=== PATIENT | female | born 1960 | race Caucasian/White ===

== ENCOUNTER 2024-05-13 11:04 | Outpatient (CLI) | payer MEDICARE, SELFPAY ==
--- OUTSIDE RECORDS SUMMARY | 2024-05-13 10:09 | XMS_ITS | Clinical Summary ---
Author Organization [facility] Address [address] [place] [address] Phone Care Team Providers Care V Belt Finisher Name Role Phone Moreno Jimenez MD Primary Care Provider [phone] Mu Barrera DO Unavailable [phone] Allergies No known active allergies Medications Nutritional Supplements (JUICE PLUS FIBRE PO) Take by mouth daily. 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 Active lisinopril (PRINIVIL, ZESTRIL) 10 MG Tablet Take 10 mg by mouth daily. 06/06/19 23 Active albuterol 108 (90 Base) MCG/ACT Aerosol Solution INHALE 2 PUFFS INTO THE LUNGS EVERY 6 HOURS NEEDED FOR WHEEZING 12/29/19 23 Active guaiFENesin-cod eine (TUSSI-ORGANIDI N NR) 100-10 MG/5ML Syrup Take 10 mL by mouth nightly as needed. 02/03/20 23 Active Pseudoephedrine -guaiFENesin (MUCINEX D PO) Take by mouth as needed. Active other Immunoglobulin Infusion - x1 monthly Active fluorometholone (FML) 0.1 % Suspension if needed. 05/15/19 24 Active cetirizine (ZyrTEC) 10 MG Tablet Take 10 mg by mouth. Active azelastine (ASTELIN) 0.1 % Solution 1 [place] by Nasal route as needed for Rhinitis. 25 mL 11/23/19 24 Active Additional Information Patient not taking.Reported on 05/05/2024 [place] Natural Products (IMMUNE BOOST PO) Take by mouth. Activ e tamoxifen citrate 20 MG Tablet Take 1 Tablet by mouth daily 30 Tablet 3 03/03/20 24 Active Probiotic Product ([place] Intestinal Daxa Regulat) Capsule Take 1 Capsule by mouth daily (with breakfast). 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 06/07/2015 Encounters Date Type Department Care Team Description 05/06/2024 8:30 AM FREELANCE GRAPHIC DESIGNER Clinical Support [facility] [address] [address] Nurse, Dali Naranjo History of non-Hodgkin's lymphoma (Primary Dx); Hypogammaglobulinemia (HCC) 05/06/2024 Telephone [facility] [address] [address] Mu Barrera, 05/05/2024 9:45 AM FREELANCE GRAPHIC DESIGNER Office Visit [facility] [address] [address] Mu Barrera, History of non-Hodgkin's lymphoma (Primary Dx); Hypogammaglobulinemia (HCC) 05/05/2024 9:30 AM FREELANCE GRAPHIC DESIGNER Lab [facility] [address] [address] [facility] Hypogammaglobulinemia (HCC); Ductal carcinoma in situ (DCIS) of right breast; Vitamin D deficiency 05/05/2024 Travel 04/30/2024 Telephone [facility] [address] [address] Mu Barrera, 04/04/2024 8:15 AM FREELANCE GRAPHIC DESIGNER Clinical Support [facility] [address] [address] Nurse, Cc Ofriaz History of non-Hodgkin's lymphoma (Primary Dx); Hypogammaglobulinemia (HCC) 04/04/2024 Travel 04/02/2024 Telephone [facility] [address] [address] Mu Barrera, 04/01/2024 Results Follow-Up [facility] [address] [address] Atiya Mejia, CITY ROUTE DRIVER, PRINT SUPPORT SPECIALIST 03/31/2024 9:00 AM FREELANCE GRAPHIC DESIGNER Lab [facility] [address] [address] Lab, Cc Ofallon Hypogammaglobulinemia (HCC) 03/31/2024 Travel 03/04/2024 Telephone [facility] [address] [address] Atiya Mejia, CITY ROUTE DRIVER, PRINT SUPPORT SPECIALIST 03/03/2024 9:45 AM FREELANCE GRAPHIC DESIGNER Office Visit [facility] [address] [phone] Atiya Mejia, CITY ROUTE DRIVER, PRINT SUPPORT SPECIALIST Hypogammaglobulinemia (HCC) (Primary Dx); Ductal carcinoma in situ (DCIS) of right breast; Vitamin D deficiency; Diarrhea, unspecified type 03/03/2024 9:30 AM FREELANCE GRAPHIC DESIGNER Lab [facility] [address] [address] Lab, C[facility] Hypogammaglobulinemia (HCC); Ductal carcinoma in situ (DCIS) of right breast 03/03/2024 Travel from Last 3 Months Immunizations Immunization Administration Dates Next Due DT Vaccine 11/07/2004 Hepatitis A And Hepatitis B Vaccine 07/03/2006,1 ,01/02/2006 Hepatitis A Vaccine,unspecif ied Formulation 07/03/2006,02/06/2006 IMM GLOB HUMAN IV 05/06/2024,,02/04/2024,01/06,11/30/2023,09/24/2023,08/21/2023 ,05/24/2023,04/26/2023,03/22/2023,11/0 12/2022 Influenza Vaccine 01/11/2019,01/12/2017,02/13/20 15 Influenza Vaccine, MDCK,quad rivalent, pres free 01/18/2022,01/12/2017 Influenza Vaccine, Quadrivalent, PF 01/16/2020,1 ,12/31/2015 Influenza Vaccine,unspecifie d Formulation 01/18/2022,01/11/2019,01/12/2017,02/12 Influenza, Injectable, Quadrivalent 01/11/2019 Influenza, Seasonal, Injecta ble, Undefined 01/13/2021,02/07/2014 Influenza, high-dose, trivalent, PF 01/23/2024 MMR Vaccine 12/09/2004,11/07/2004 Pneumococcal Vaccine Adult - 23 Valent 4 Pneumococcal conjugate PCV20 , polysaccharide [id number] conjugate, adjuvant, PF 12/11/2022 RSV, Recombinant, Protein Alaniz bunit Rsvpref, Adjuvant Recon (Arexvy) 01/09/2024 TD VACCINE 11/07/2004 TDAP Vaccine 11/11/2009 Typhoid, Parenteral, AKD ([place] ) 11/11/2009,01/02/2006 Yellow Fever Vaccine 11/11/2009 Zoster Vaccine Recombinant 03/19/2021,01/13/2021 Social History Tobacco Use Types Packs/Day Years Used Date Smoking Tobacco: Never Passive Smoke Exposure: Never Smokeless Tobacco: Never Tobacco Cessation:Counseling Given: No Alcohol Use Standard Drinks/Week Comments Yes 0 (1 standard drink = 0.6 oz pur e alcohol) socially PHQ-2 Answer Date Recorded Total Score - Questions 1-9 0 09/15 Comments No Sex and Gender Information Value Date Recorded Sex Assigned at Not on file Legal Sex Female 2:40 AM CDT Gender Identity Not on file Sexual Orientation Not on file Last Filed Vital Signs Vital Sign Reading Time Taken Comments Blood Pressure 102/62 05/05/2024 9:44 AM FREELANCE GRAPHIC DESIGNER Pulse 62 05/05/2024 9:44 AM FREELANCE GRAPHIC DESIGNER Temperature 36.6 ??C (97.9 ??F) 05/05/2024 9:44 AM CS T Respiratory Rate 16 05/05/2024 9:44 AM FREELANCE GRAPHIC DESIGNER Oxygen Saturation 97% 05/05/2024 9:44 AM FREELANCE GRAPHIC DESIGNER Inhaled Oxygen Concentration - - Weight 86.6 kg (190 lb 14.4 oz) 05/05/2024 9:44 AM FREELANCE GRAPHIC DESIGNER Height 162.6 cm (5' 4 ) 05/05/2024 9:44 AM FREELANCE GRAPHIC DESIGNER Body Mass Index 32.77 05/05/2024 9:44 AM FREELANCE GRAPHIC DESIGNER Plan of Treatment Upcoming Encounters Date Type Department Care Team (Late st Contact Info) Description 06/16/2024 9:00 AM FREELANCE GRAPHIC DESIGNER Lab [facility] [address] [address] Lab, [facility] 06/23/2024 8:30 AM CDT Clinical Support [facility] [address] [address] 07/21/2024 8:30 AM CDT Clinical Support [facility] [address] [address] 08/04/2024 8:30 AM CDT Lab [facility] [address] [address] Lab, [facility] 08/04/2024 8:45 AM CDT Office Visit [facility] [address] [address] Mu Barrera, DO [address] [place] [phone] Health Maintenance Due Date Last Done Comments Hepatitis C Virus (HCV) Screening 1960 Immunochemical Fecal Occult Blood 02/27/2008 Cologuard 08/24/2023 08/23/2020 SARS-COV-2 Immunization (7 - Moderna risk season) 2024 12/19/2023, 02/03/2022, 08/30/2021, Additional history exists Mammogram Unilateral 09/18/2024 09/19/2023, 09/19/2023, 08/27/2023, Additional history exists DEXA Bone Density 10/31/2024 10/31/2022 Colonoscopy 09/20/2030 09/20/2020 Colorectal Cancer Screening 09/20/2030 09/20/2020 Hepatitis B Immunization Completed 007, 02/06/2006, 01/02/2006 DTaP/Tdap/Td Immunization Discontinued 2009, 11/07/2004, 11/07/2004 Cervical Cancer Screening (CCS) Discontinued Pap Smear Discontinued 08/14/2018 Zoster Immunization Completed 03/19/2021, Pneumococcal Immunization (50+ years) Completed 12/11/2022, 02/23/2014 Pneumococcal Immunization Combined Discontinued 12/11/2022, 02/23/2014 Mammogram Discontinued 09/19/2023, 08/14, 08/16/2023, Additional history exists Respiratory Syncytial Virus (RSV) Immunization (Adult) Completed 01/09/2024 Influenza Immunization Completed , 01/18/2022, 01/18/2022, Additional history exists HPV/Cotest Discontinued Meningococcal Immunization (ACWY) Aged Out No longer eligible based on patient's age to complete this topic Rotavirus Immunization Aged Out No lo nger eligible based on patient's age to complete this topic Procedures Procedure Name Priority Date/Time Associated Diagnosis Comments CBC WITH AUTO DIFF OH Routine 05/05/2024 9:33 AM FREELANCE GRAPHIC DESIGNER CMP (COMPREHENSIVE METABOLIC PANEL) Routine 05/05/2024 9:33 AM FREELANCE GRAPHIC DESIGNER Hypogammaglobuline julius (HCC) Ductal carcinoma in situ (DCIS) of right breast Vitamin D deficiency IMMUNOGLOBULIN IGA, IGG & IGM QUANT Routine 05/05/2024 9:33 AM FREELANCE GRAPHIC DESIGNER Hypogammaglobuline julius (HCC) Ductal carcinoma in situ (DCIS) of right breast Vitamin D deficiency VITAMIN D, 25 HYDROXY TOTAL Routine 05/05/2024 9:33 AM FREELANCE GRAPHIC DESIGNER Hypogammaglobuline julius (HCC) Ductal carcinoma in situ (DCIS) of right breast Vitamin D deficiency IMMUNOGLOBULIN IGA, IGG & IGM QUANT Routine 03/31/2024 8:52 AM FREELANCE GRAPHIC DESIGNER Hypogammaglobuline julius (HCC) CBC WITH AUTO DIFF OH Routine 03/03/2024 9:33 AM FREELANCE GRAPHIC DESIGNER CMP (COMPREHENSIVE METABOLIC PANEL) Routine 03/03/2024 9:33 AM FREELANCE GRAPHIC DESIGNER Hypogammaglobuline julius (HCC) Ductal carcinoma in situ (DCIS) of right breast IMMUNOGLOBULIN IGA, IGG & IGM QUANT Routine 03/03/2024 9:33 AM FREELANCE GRAPHIC DESIGNER Hypogammaglobuline julius (HCC) Ductal carcinoma in situ (DCIS) of right breast COLOGUARD Routine 08/23/2020 STEPHEN SCREENING CHAR W IMPL DIGITAL W CAD Routine 06/04/2020 from Last 3 Months or Most Recently Relevant to Health Maintenance Results * VITAMIN D, 25 HYDROXY TOTAL (05/05/2024 9:33 AM FREELANCE GRAPHIC DESIGNER) 25() Vitamin D, Total 32.7 30.0 - 100.0 ng/mL [facility] Comment: The Clinical Guidelines Subcommittee of the Endocrine Society Task Force established the guidelines below for recommended serum 25(OH) vitamin D levels. ??Other clinical reference citations may show different values. Deficient ? <20 ? Insufficient ? 20 to <30 ? Sufficient ? 30 to 100 ? Upper Safety Limit ?>100 Blood 05/05/2024 9:33 AM FREELANCE GRAPHIC DESIGNER Narrative [facility] - 05/06/2024 10:52 AM FREELANCE GRAPHIC DESIGNER Release to patient->Immediate us Atiya Mejia CITY ROUTE DRIVER, PRINT SUPPORT SPECIALIST CHEMISTRY ORDERABLES Final Result [facility] [place] [address], [place] [phone] * (ABNORMAL) CBC WITH AUTO DIFF OH (05/05/2024 9:33 AM FREELANCE GRAPHIC DESIGNER) Only the most recent of2 resultswithin the time period is included. WBC 4.8 4.0 - 10.0 10*3/uL [facility] HGB 12.8 11.2 - 15.7 g/dL [facility] HCT 40.0 34.1 - 44.9 % [facility] PLT 192 163 - 369 10*3/uL [facility] MPV 11.8 9.4 - 12.4 fL [facility] RBC 4.69 3.93 - 5.22 10*6/uL [facility] MCV 85 79 - 95 fL [facility] MCH 27.3 25.6 - 32.2 pg [facility] MCHC 32.0(L) 32.2 - 36.5 g/dL [facility] RDW 13.3 11.6 - 14.4 % [facility] Neutrophils % 65.7 36.0 - 66.0 % [facility] Lymphocytes % 21.1 19.0 - 40.0 % [facility] Monocytes % 6.5 4.1 - 12.1 % [facility] Eosinophils % 6.1(H) 0.0 - 3.5 % [facility] Basophils % 0.4 0.0 - 1.0 % [facility] Absolute Neutrophils 3.1 1.4 - 6.6 10*3/uL [facility] Absolute Lymphocytes 1.0 0.8 - 4.0 10*3/uL [facility] Absolute Monocytes 0.3 0.2 - 1.2 10*3/uL [facility] Absolute Eosinophils 0.3 0.0 - 0.4 10*3/uL [facility] Absolute Basophils 0.0 0.0 - 0.1 10*3/uL [facility] 05/05/2024 9:33 AM FREELANCE GRAPHIC DESIGNER Atiya Mejia APRN, DOTTIE LAB SEND OUTS Final Result [facility] [address] [place] [address], [place] [phone] * (ABNORMAL) IMMUNOGLOBULIN IGA, IGG & IGM QUANT (05/05/2024 9:33 AM FREELANCE GRAPHIC DESIGNER) Only the most recent of3 resultswithin the time period is included. IGG 654 635 - 1,741 mg/dL [facility] IGA <10(L) 66 - 433 mg/dL [facility] IGM <20(L) 45 - 281 mg/dL [facility] Blood 05/05/2024 9:33 AM FREELANCE GRAPHIC DESIGNER Narrative [facility] - 05/05/2024 3:41 PM FREELANCE GRAPHIC DESIGNER Release to patient->Immediate Atiya Mejia APRN, PRINT SUPPORT SPECIALIST CHEMISTRY ORDERABLES Final Result Performing Organization Address [facility] Co de Phone Number [facility] [address] [address], [place] [phone] * (ABNORMAL) CMP (COMPREHENSIVE METABOLIC PANEL) (05/05/2024 9:33 AM FREELANCE GRAPHIC DESIGNER) Only the most recent of2 resultswithin the time period is included. Glucose 117(H) 70 - 105 mg/dL [facility] Blood Urea Nitrogen 15 7 - 25 mg/dL [facility] Creatinine 0.8 0.6 - 1.2 mg/dL [facility] Sodium 142 136 - 145 mEq/L [facility] Potassium 4.5 3.5 - 5.1 mEq/L [facility] Chloride 108(H) 98 - 107 mEq/L [facility] Bicarbonate 29 21 - 31 mEq/L [facility] Total Bilirubin 0.3 0.3 - 1.0 mg/dL [facility] Alk. Phosphatase 40 34 - 104 U/L [facility] Aspartate Aminotransferase 17 13 - 39 U/L [facility] Alanine Aminotransferase 17 7 - 52 U/L [facility] Total Protein 6.2(L) 6.4 - 8.9 g/dL [facility] Albumin 4.3 3.5 - 5.7 g/dL [facility] Calcium 9.6 8.6 - 10.3 mg/dL [facility] Anion Gap 9.5 7.0 - 15.0 mEq/L [facility] Globulin 1.9(L) 2.0 - 3.5 g/dL [facility] EGFR 81 >60 ml/min/1. 73m2 [facility] Comment: This eGFR is calculated using 2020 CKD-EPI Creatinine equation without race modifier based on the NKF-ASN task force recommendations Blood 05/05/2024 9:33 AM FREELANCE GRAPHIC DESIGNER Narrative [facility] - 05/05/2024 10:57 AM FREELANCE GRAPHIC DESIGNER Release to patient->Immediate IS THE PATIENT REQUIRED TO BE FASTING FOR 8 HOURS?->No us Atiya Mejia APRN, CNP CHEMISTRY ORDERABLES Final Result [facility] [address] [place] [address], * COLOGUARD (08/23/2020) us Michoacano Aponte III, MD BODY FLUIDS & STOOLS ORDERA BLES Final Result * STEPHEN SCREENING CHAR W IMPL DIGITAL W CAD (06/04/2020) Anatomical Region Laterality Modality breast Bilateral Mammography us Not On File Provider IMG MAMMO ORDERABLES Final Result from Last 3 Months or Most Recently Relevant to Health Maintenance Insurance MEDICARE [facility] Care Teams V Belt Finisher Relationship Specialty Start Date End Date Moreno Jimenez MD [address] [place] [address] PCP - General Family Medicine 12/13/18 Mu Barrera, [address] [place] [phone] Consulting Physician Oncology 12/05/23
--- OUTSIDE RECORDS SUMMARY | 2024-05-13 10:09 | XMS_ITS | Encounter Summary ---
Author Organization [facility] Address [address] [place] [address]. [place], [place] [phone] [place] [address] Care Team Providers Care Machine Learning Intern Name Role Phone Moreno Jimenez MD Primary Care Provider [phone] Brad Brand MD Unavailable [phone] Jc Browne MD Unavailable Encounter Details Date Type Department Care Team (Late st Contact Info) Description 03/09/[address] [facility] Conversion [address] [place], [place] [id number] , Generic Conversion, Social History Tobacco Use Types Packs/Day Years Used Date Smoking Tobacco: Never Assessed Comments Unknown Sex and Gender Information Value Date Recorded Sex Assigned at Female 03/29/2021 4:02 PM INSTALLER MOLDING AND TRIM Legal Sex Female 5:01 PM CDT Gender Identity Female 03/29/2021 4:02 PM INSTALLER MOLDING AND TRIM Sexual Orientation Straight 03/29/2021 4: 02 PM INSTALLER MOLDING AND TRIM documented as of this encounter Plan of Treatment Upcoming Encounters Date Type Department Care Team (Late st Contact Info) Description 08/19/2024 10:00 AM CDT Appointment [facility] [place] [address] Raudel Bacon MD [address] [address] documented as of this encounter Visit Diagnoses Not on filedocumented in this encounter Care Teams Machine Learning Intern Relationship Specialty Start Date End Date Moreno Jimenez MD [address] [place] [address] PCP - General FAMILY PRACTICE 10/23/18 Brad Brand MD [address] [facility] [address] [place] [phone] Consulting Physician INTERVENTIONAL CARDIOLOGY 10/28/18 Jc Browne MD [address] [place], [place] [address] Consulting Physician RADIATION ONCOLOGY 10/08/23 documented as of this encounter
--- OUTSIDE RECORDS SUMMARY | 2024-05-13 10:09 | XMS_ITS | Encounter Summary ---
Author Organization [facility] Address [address] [place] [address]. [place] [address] [place] [address] Care Team Providers Care Assistant Winemaker Name Role Phone Moreno Jimenez MD Primary Care Provider [phone] Brad Brand MD Unavailable [phone] Jc Browne MD Unavailable Encounter Details Date Type Department Care Team (Late st Contact Info) Description 02/23/2023 MyChart Message Enc [facility] [address] [place], [place] [id number] Moreno Jimenez MD [address] [place], [place] [address] Lab and CT Scan Results from [facility] Social History Tobacco Use Types Packs/Day Years Used Date Smoking Tobacco: Never Smokeless Tobacco: Never Comments:She does not plan t o start. Alcohol Use Standard Drinks/Week Comments Yes 0 (1 standard drink = 0.6 oz pur e alcohol) social PHQ-2 Answer Date Recorded Patient Health Questionnaire-2 Score 0 05/22/2022 Comments No Sex and Gender Information Value Date Recorded Sex Assigned at Female 03/29/2021 4:02 PM BASE CLOTH INSPECTOR Legal Sex Female 5:01 PM CDT Gender Identity Female 03/29/2021 4:02 PM BASE CLOTH INSPECTOR Sexual Orientation Straight 03/29/2021 4: 02 PM BASE CLOTH INSPECTOR documented as of this encounter Plan of Treatment Upcoming Encounters Date Type Department Care Team (Late st Contact Info) Description 08/19/2024 10:00 AM CDT Appointment [facility] [place] [address] Raudel Bacon MD [address] [address] documented as of this encounter Visit Diagnoses Not on filedocumented in this encounter Care Teams Assistant Winemaker Relationship Specialty Start Date End Date Moreno Jimenez MD [address] [place] [address] PCP - General FAMILY PRACTICE 10/23/18 Brad Brand MD [address] [facility] [address] [place] [address] Consulting Physician INTERVENTIONAL CARDIOLOGY 10/28/18 cJ Browne MD [address] [place] [address] Consulting Physician RADIATION ONCOLOGY 10/08/23 documented as of this encounter
--- OUTSIDE RECORDS SUMMARY | 2024-05-13 10:09 | XMS_ITS | Encounter Summary ---
Author Organization [facility] Address [address] [place] [address]. [place], [place] [phone] [place] [address] Care Team Providers Care Rn Medicare Name Role Phone Moreno Jimenez MD Primary Care Provider [phone] Brad Brand MD Unavailable [phone] Jc Browne MD Unavailable Encounter Details Date Type Department Care Team (Late st Contact Info) Description 06/03/[address] [facility] Conversion [address] [place], [place] [address] , Generic Conversion, Social History Tobacco Use Types Packs/Day Years Used Date Smoking Tobacco: Never Assessed Comments Unknown Sex and Gender Information Value Date Recorded Sex Assigned at Female 03/29/2021 4:02 PM RN UTILIZATION MANAGEMENT UM Legal Sex Female 5:01 PM CDT Gender Identity Female 03/29/2021 4:02 PM RN UTILIZATION MANAGEMENT UM Sexual Orientation Straight 03/29/2021 4: 02 PM RN UTILIZATION MANAGEMENT UM documented as of this encounter Plan of Treatment Upcoming Encounters Date Type Department Care Team (Late st Contact Info) Description 08/19/2024 10:00 AM CDT Appointment [facility] [address] [place] [address] Raudel Bacon MD [address] [address] documented as of this encounter Visit Diagnoses Not on filedocumented in this encounter Care Teams Rn Medicare Relationship Specialty Start Date End Date Moreno Jimenez MD [address] [place] [address] PCP - General FAMILY PRACTICE 10/23/18 Brad Brand MD [address] [facility] [address] [place] [phone] Consulting Physician INTERVENTIONAL CARDIOLOGY 10/28/18 Jc Browne MD [address] [place], [place] [address] Consulting Physician RADIATION ONCOLOGY 10/08/23 documented as of this encounter
--- OUTSIDE RECORDS SUMMARY | 2024-05-13 10:09 | XMS_ITS | Clinical Summary ---
Author Organization [facility] Gerry Zavala Address [address] [address] Care Team Providers Care Classification Officer Name Role Phone Unavailable Primary Care Provider Unavailabl e Encounters Date Type Department Care Team Description 05/07/2024 External Device Data [facility] ABSTRACTION Provider, Abstract 05/07/2024 External Device Data [facility] ABSTRACTION Provider, Abstract 04/30/2024 External Device Data [facility] ABSTRACTION Provider, Abstract 04/22/2024 External Device Data [facility] ABSTRACTION Provider, Abstract 02/13/2024 External Device Data [facility] ABSTRACTION Provider, Abstract from Last 3 Months Social History Tobacco Use Types Packs/Day Years Used Date Smoking Tobacco: Never Assessed Comments Unknown Sex and Gender Information Value Date Recorded Sex Assigned at Not on file Legal Sex Female 8:47 AM [employer] P[employer] Gender Identity Not on file Sexual Orientation Not on file Plan of Treatment Health Maintenance Due Date Last Done Comments Pre-Diabetes and Diabetes Screening 1960 FIT-DNA Q 3 years 2003 FIT/FOBT Q 1 year 2003 Flex Sig/CT Colonography Q 5 years 2003 RSV VACCINE (60+ or ) (1 - Risk 60-74 years 1-dose series) 2018 DTAP/TDAP/TD VACCINES (3 - T d or Tdap) 11/12/2019 11/11/2009, 11/07/2004 INFLUENZA VACCINE (#1) 2023 , 01/16/2020, 01/11/2019, Additional history exists BREAST CANCER SCREENING 08/26/2024 08/27/19 24, 08/16/2023, 07/03/2022, Additional history exists COLORECTAL SCREENING 09/20/2030 09/20/2020 Colorectal Cancer Screening 09/20/2030 ZOSTER VACCINE Completed 03/19/2021, 01/13/2021 OSTEOPOROSIS SCREENING Completed 10/31/2022, 2022 PNEUMOCOCCAL VACCINE 65+ YEARS Completed 12/11/2022 , 02/23/2014
--- OUTSIDE RECORDS SUMMARY | 2024-05-13 10:09 | XMS_ITS | Clinical Summary ---
Author Organization [facility] Address [address] [place] [address]. [place] [address] [place] [address] Care Team Providers Care District Extension Service Agent Name Role Phone Moreno Jimenez MD Primary Care Provider [phone] Brad Brand MD Unavailable Jc Browne MD Unavailable Allergies No known active allergies Medications MULTIPLE VITAMIN OR Take by mouth daily. Active Nutritional Supplements (JUICE PLUS FIBRE OR) Take 1 tablet by mouth daily. Active NON FORMULARY Immunoglobulin Infusion - x1 monthly Active lisinopril (PRINIVIL) 10 MG tabletIndication s:Essential hypertension TAKE 1 TABLET(10 MG) BY MOUTH DAILY 90 tablet 1 03/28/20 24 Active tamoxifen (NOLVADEX) 20 MG tablet Take 1 tablet by mouth daily. 11/23/19 24 Active Misc Natural Products (IMMUNE BOOST) Cap 02/15/20 24 Active riTUXimab in sodium chloride solution Inject into the vein once. Once every two months 025 Discontin ued(Thera py completed ) hydroCHLOROthiaz kiara (MICROZIDE) 12.5 MG capsuleIndicatio ns:Essential hypertension Take 1 capsule (12.5 mg total) by mouth every morning. 90 capsule 04/04/20 23 025 Discontin ued(Thera py completed ) omega-3 fatty acid (FISH OIL) 1000 MG capsule Take 1 capsule (1,000 mg total) by mouth daily. 05/15/19 24 025 Discontin ued(Thera py completed ) fluorometholone (FML) 0.1 % ophthalmic suspension Place 1 drop into the left eye 3 (three) times daily. 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 ([facility]) 06/07/2015 Encounters Date Type Department Care Team Description 04/29/2024 8:22 AM MANAGER FILM - 04/29/2024 11:59 PM MANAGER FILM Hospital Encounter [facility] - Laboratory [address] [place] [address] Moreno Jimenez MD Discharge Disposition: Home or Self Care (Routine Discharge) 04/29/2024 8:00 AM MANAGER FILM Office Visit [facility] [address] [place] [address] Moreno Jimenez MD Medication Check (Here for a med check) 04/29/2024 Travel 03/28/2024 MyChart Message Enc [facility] [address] [place] [address] [facility], [facility] Provider Appointment Needed 03/03/2024 Scan [facility] INFO SRVCS Scanned, [facility] from Last 3 Months Immunizations Name Administration Dates Next Due Afluria 36 MONTHS+ (Prefille d Syringe IIV4) 01/11/2019 Diphtheria and Tetanus Toxoi ds Adsorbed 11/07/2004 H1N1 2009 Influenza Vaccine 01/13/2021, 4 Hepatitis A 07/03/2006,02/06/2006 Hepatitis A (Generic) 07/03/2006,02/06/2006,12/15 Hepatitis A/Hepatitis B (Aka Twinrix) 07/03/2006 ,02/06/2006,01/02/2006 Influenza (Fluvirin) 01/11/2019,01/12/2017,02/12 Influenza (Generic) 02/12/2015 Influenza Adult (Generic) 01/18/2022,,01/16/2020,2018,02/07/2018,01/12/2017,12/31/2015,1 MMR 12/09/2004,11/07/2004 MODERNA COVID-19 (FOREPART LASTER CHASTITY JOSE), MRNA, LNP-S, PF, 50 MCG/ 0.25 ML DOSE 02/18/2021 Pneumococcal (Pneumovax 23) 02/23/2014 Pneumococcal (Prevnar 20) 12/11/2022 Shingrix 03/19/2021,01/13/2021 Td (TDVAX) 11/07/2004 Tdap (Boostrix) 11/11/2009 Typhoid 11/11/2009,01/02/2006 Typhoid Vaccine, Akd 11/11/2009,01/02/2006 Family History Medical History Relation Comments Alcohol Abuse Brother Cancer Father Kidney Disease Father No Known Problems Maternal Grandfather No Known Problems Maternal Grandmother Arthritis Mother Diabetes Mother Hypertension Mother Kidney Disease Mother Parkinson's Disease Mother No Known Problems Paternal Grandfather Uterine Cancer Paternal Grandmother Prostate Cancer Paternal Uncle Breast Cancer Sister in her 40s Relation Status Comments Brother Father Alive Maternal Grandfather Maternal Grandmother Mother Alive Paternal Grandfather Paternal Grandmother Paternal Uncle Sister Alive Social History Tobacco Use Types Packs/Day Years Used Date Smoking Tobacco: Never Smokeless Tobacco: Never Tobacco Cessation:Counseling Given: Not Answered Comments:She does not plan to start. Alcohol Use Standard Drinks/Week Comments Not Currently 0 (1 standard drink = 0.6 oz pur e alcohol) Sockally, maybe once a month PHQ-2 Answer Date Recorded Patient Health Questionnaire-2 Score 0 04/29/2024 Comments No Sex and Gender Information Value Date Recorded Sex Assigned at Female 03/29/2021 4:02 PM MANAGER FILM Legal Sex Female 5:01 PM CDT Gender Identity Female 03/29/2021 4:02 PM MANAGER FILM Sexual Orientation Straight 03/29/2021 4: 02 PM MANAGER FILM Last Filed Vital Signs Vital Sign Reading Time Taken Comments Blood Pressure 126/74 04/29/2024 7:59 AM MANAGER FILM Pulse 69 04/29/2024 7:59 AM MANAGER FILM Temperature 37.1 ??C (98.7 ??F) 04/29/2024 7:59 AM CS T Respiratory Rate 18 04/29/2024 7:59 AM MANAGER FILM Oxygen Saturation 98% 04/29/2024 7:59 AM MANAGER FILM Inhaled Oxygen Concentration - - Weight 86.2 kg (190 lb) 04/29/2024 7:59 AM MANAGER FILM Height 162.6 cm (5' 4 ) 04/29/2024 7:59 AM MANAGER FILM Body Mass Index 32.61 04/29/2024 7:59 AM MANAGER FILM Plan of Treatment Upcoming Encounters Date Type Department Care Team (Late st Contact Info) Description 08/19/2024 10:00 AM CDT Appointment [facility] Mammography [address] [place] [address] Luz Bacon MD [address] [place] [address] Health Maintenance Due Date Last Done Comments Hepatitis C 02/27/1976 DTaP, Tdap and Td Vaccines (2 - Td or Tdap) 11/12/2019 11/11/2009, 11/07/2004, 11/07/2004 Annual Medicare Wellness Visit 2023 COVID-19 Vaccine ( - season) 2023 02/18/2021, 07/14/2020 (Patient Reported) Influenza Adult (#1) 2024 01/18/2022, 01/13/2021, 01/13/2021, Additional history exists PHQ-2 (Physician [place]) 04/29/2025 04/29/2024 Mammogram Screening 09/18/2025 09/19/2023, 08/27/2023, 08/16/2023, Additional history exists Colorectal Cancer Screening Colonoscopy (10 Years) 09/20/2030 09/20/2020, 09/20/2020 RSV Immunization or 60+ Years (1 - 1-dose 75+ series) 2033 Zoster Vaccines Completed 03/19/2021, 01/13/2021 Dexa Scan (General) Completed 10/31/2022, Pneumococcal Vaccine: 65+ Years Completed 12/11/2022, 02/23/2014 PHQ-2 (Physician [place]) Completed 04/29/2024 Meningococcal B Vaccine Aged Out No l onger eligible based on patient's age to complete this topic Meningococcal Vaccine Aged Out No isac jj eligible based on patient's age to complete this topic RSV Immunizations Under 20 Months Aged Out No longer eligible based on patient's age to complete this topic Procedures Procedure Name Priority Date/Time Associated Diagnosis Comments URINALYSIS, AUTO, COMPLETE Routine 04/29/2024 8:30 AM MANAGER FILM Essential hypertension TSH W/REFLEX Routine 04/29/2024 8:22 AM MANAGER FILM Essential hypertension LIPID PANEL Routine 04/29/2024 8:22 AM MANAGER FILM Hyperlipidemia, unspecified hyperlipidemia type COMPREHENSIVE METABOLIC PANEL Routine 04/29/2024 8:22 AM MANAGER FILM Essential hypertension CBC W/DIFF AUTOMATED Routine 04/29/2024 8:22 AM MANAGER FILM Essential hypertension MG DIAGNOSTIC RT DIGI Routine 09/19/2023 3:25 PM CDT Abnormal mammogram BONE DENSITY/DEXA Routine 10/31/2022 9:3 2 AM CDT Encounter for screening for osteoporosis COLONOSCOPY GENERIC (SCAN ORDER) 09/20/2020 from Last 3 Months or Most Recently Relevant to Health Maintenance Results * URINALYSIS, AUTO, COMPLETE (04/29/2024 8:30 AM MANAGER FILM) COLOR (U) LIGHT YELLOW 04/29/2024 2:34 PM MANAGER FILM [facility] TRANSPARENCY CLEAR 04/29/2024 2:34 PM MANAGER FILM [facility] SPECIFIC GRAVITY (U) 1.021 1.003 - 1.030 04/29/2024 2:34 PM MANAGER FILM [facility] U PH 5.5 5.0 - 9.0 04/29/2024 2:34 PM MANAGER FILM [facility] LEUKOCYTES (U) NEGATIVE NEGATIVE 04/29/2024 2:34 PM MANAGER FILM [facility] NITRITES NEGATIVE NEGATIVE 04/29/2024 2:34 PM MANAGER FILM [facility] PROTEIN RANDOM (U) NEGATIVE NEGATIVE 04/29/2024 2:34 PM MANAGER FILM [facility] GLUCOSE (U) NORMAL NORMAL 04/29/2024 2:34 PM MANAGER FILM [facility] KETONES MG/DL (U) NEGATIVE NEGATIVE 04/29/2024 2:34 PM MANAGER FILM [facility] UROBILINOGEN NORMAL NORMAL MG/DL 04/29/2024 2:34 PM MANAGER FILM [facility] BILIRUBIN (U) NEGATIVE NEGATIVE 04/29/2024 2:34 PM MANAGER FILM [facility] BLOOD (U) NEGATIVE NEGATIVE 04/29/2024 2:34 PM MANAGER FILM [facility] MUCUS PRESENT 04/29/2024 2:34 PM MANAGER FILM [facility] WBC/HPF 0-5 0 - 5 /HPF 04/29/2024 2:34 PM MANAGER FILM [facility] RBC/HPF 0-5 0 - 5 /HPF 04/29/2024 2:34 PM MANAGER FILM [facility] SQUAMOUS EPITHELIALS 0-3 04/29/2024 2:34 PM MANAGER FILM [facility] COMMENT (U) URINE RESULTS 04/29/2024 2:34 PM MANAGER FILM [facility] URINE SPECIMEN OBTAINED BY CLEAN CATCH PROCEDURE / Unknown 04/29/2024 8:30 AM MANAGER FILM us Moreno Jimenez MD URINE ORDERABLES Final Result [facility] [address] [place] [address], * TSH W/REFLEX (04/29/2024 8:22 AM MANAGER FILM) TSH 1.400 0.358 - 3.740 uIU/ML 04/29/2024 2:53 PM [facility] Comment: FREE T4 NOT INDICATED ASSAY PERFORMED BY CHEMILUMINESCENCE METHODOLOGY USING [employer] [facility] [facility] REAGENT. PATIENT RESULTS DETERMINED BY ASSAYS USING DIFFERENT MANUFACTURERS FOR METHODS MAY NOT BE COMPARABLE. 04/29/2024 8:22 AM MANAGER FILM Moreno Jimenez MD LABORATORY Final Result [facility] [address] [place] [address], * (ABNORMAL) COMPREHENSIVE METABOLIC PANEL (04/29/2024 8:22 AM MANAGER FILM) [facility] SODIUM S/P/B 140 136 - 145 MMOL/L 04/29/2024 2:53 PM [facility] POTASSIUM S/P/B 4.3 3.5 - 5.1 MMOL/L 04/29/2024 2:53 PM [facility] CHLORIDE S/P/B 110 97 - 115 MMOL/L 04/29/2024 2:53 PM [facility] CO2 27.0 21.0 - 32.0 MMOL/L 04/29/2024 2:53 PM [facility] GLUCOSE 101 74 - 106 MG/DL 04/29/2024 2:53 PM [facility] BUN 19(H) 7 - 18 MG/DL 04/29/2024 2:53 PM [facility] CREATININE S/P/B 0.81 0.55 - 1.02 MG/DL 04/29/2024 2:53 PM [facility] CALCIUM S/P/B 9.3 8.5 - 10.1 MG/DL 04/29/2024 2:53 PM [facility] BILIRUBIN TOTAL S/P/B 0.4 0.2 - 1.0 MG/DL 04/29/2024 2:53 PM MANAGER FILM [facility] ALKALINE PHOSPHATASE S/P/B 53 45 - 117 U/L 04/29/2024 2:53 PM [facility] AST 17 15 - 37 U/L 04/29/2024 2:53 PM [facility] ALT 31 13 - 56 U/L 04/29/2024 2:53 PM [facility] TOTAL PROTEIN S/P/B 6.5 6.4 - 8.2 G/DL 04/29/2024 2:53 PM [facility] ALBUMIN S/P/B 3.8 3.4 - 5.0 G/DL 04/29/2024 2:53 PM [facility] ANION GAP 3.0 2.0 - 10.0 MMOL/L 04/29/2024 2:53 PM [facility] OSMOLALITY (CALC) 292 MOSM/KG 025 2:53 PM [facility] Comment:REFERENCE RANGE NOT ESTABLISHED GFR ESTIMATE 80(L) >89 ML/MIN/1. 73 M2 04/29/2024 2:53 PM [facility] GFR NOTES GFR REFERENCE S: 04/29/2024 2:53 PM [facility] Comment: THE ESTIMATED GFR IS CALCULATED USING THE 2020 CKD-EPI EQUATION. THE FOLLOWING CATEGORIES FOR GRADING RENAL FUNCTION ARE RECOMMENDED BY THE INTERNATIONAL SOCIETY OF NEPHROLOGY (KDIGO 2012 CLINICAL PRACTICE GUIDELINE). G1,NORMAL OR HIGH: >89 ml/min/1.73 m2 G2,MILDLY DECREASED: 60-89 ml/min/1.73 m2 G3A,MILDLY TO MODERATELY DECREASED: 45-59 ml/min/1.73 m2 G3B,MODERATELY TO SEVERELY DECREASED: 30-44 ml/min/1.73 m2 G4,SEVERELY DECREASED: 15-29 ml/min/1.73 m2 G5,KIDNEY FAILURE: <15 ml/min/1.73 m2 04/29/2024 8:22 AM MANAGER FILM Moreno Jimenez MD LABORATORY Final Result [facility] [address] [facility] [place] [address], * (ABNORMAL) LIPID PANEL (04/29/2024 8:22 AM MANAGER FILM) CHOLESTEROL 201(H) 0 - 199 MG/DL 04/29/2024 2:53 PM MANAGER FILM [facility] TRIGLYCERIDES 184(H) 0 - 149 MG/DL 04/29/2024 2:53 PM MANAGER FILM [facility] HDL 57 >39 MG/DL 04/29/2024 2:53 PM MANAGER FILM [facility] LDL (CALCULATED) 107(H) <100 MG/DL 04/29/19 2:53 PM MANAGER FILM [facility] VLDL CALCULATION 37 MG/DL 04/29/19 2:53 PM MANAGER FILM [facility] Comment:REFERENCE RANGE NOT ESTABLISHED CHOL/HDL RATIO 3.5 04/29/2024 2:53 PM MANAGER FILM [facility] Comment:REFERENCE RANGE NOT ESTABLISHED LDL/HDL 2.0 04/29/2024 2:53 PM MANAGER FILM [facility] Comment:REFERENCE RANGE NOT ESTABLISHED NON HDL CHOLESTEROL 144 MG/DL 04/29/2024 2:53 PM MANAGER FILM [facility] Comment:REFERENCE RANGE NOT ESTABLISHED 04/29/2024 8:22 AM MANAGER FILM Moreno Jimenez MD LABORATORY Final Result [facility] [address] [place] [address], * (ABNORMAL) CBC W/DIFF AUTOMATED (04/29/2024 8:22 AM MANAGER FILM) WBC 5.71 4.60 - 9.10 x10'3/uL 04/29/2024 2:30 PM MANAGER FILM [facility] RBC 4.88 3.90 - 5.00 x10'6/uL 04/29/2024 2:30 PM MANAGER FILM [facility] HGB 13.2 11.8 - 14.7 G/DL 04/29/2024 2:30 PM MANAGER FILM [facility] HCT 41.2 36.3 - 45.2 % 04/29/2024 2:30 PM MANAGER FILM [facility] MCV 84.4 80.0 - 98.0 FL 04/29/2024 2:30 PM MANAGER FILM [facility] MCH 27.0 26.8 - 32.1 PG 04/29/2024 2:30 PM MANAGER FILM [facility] MCHC 32.0 30.7 - 34.2 G/DL 04/29/2024 2:30 PM MANAGER FILM [facility] RDW 13.2 12.0 - 14.8 % 04/29/2024 2:30 PM MANAGER FILM [facility] PLT 194 145 - 358 x10'3/uL 04/29/2024 2:30 PM MANAGER FILM [facility] MPV 13.1(H) 8.8 - 12.3 FL 04/29/2024 2:30 PM MANAGER FILM [facility] SEG NEUTROPHILS 63.5 % 2:30 PM MANAGER FILM [facility] LYMPHOCYTES 22.2 % 04/29/2024 2:30 PM MANAGER FILM [facility] MONOCYTES 8.1 % 04/29/2024 2:30 PM MANAGER FILM [facility] EOSINOPHILS 5.3 % 04/29/2024 2:30 PM MANAGER FILM [facility] BASOPHILS 0.5 % 04/29/2024 2:30 PM MANAGER FILM [facility] IMMATURE GRANS % 0.4 % 04/29/19 2:30 PM MANAGER FILM [facility] NRBC % 0.0 % 04/29/2024 2:30 PM MANAGER FILM [facility] ABS. NEUTROPHILS 3.63 2.30 - 5.70 x10'3/uL 04/29/2024 2:30 PM MANAGER FILM [facility] ABS. LYMPHOCYTES 1.27 1.10 - 3.30 x10'3/uL 04/29/2024 2:30 PM MANAGER FILM [facility] ABS. MONOCYTES 0.46 0.30 - 0.80 x10'3/uL 04/29/2024 2:30 PM MANAGER FILM [facility] ABS. EOSINOPHILS 0.30 0.03 - 0.45 x10'3/uL 04/29/2024 2:30 PM MANAGER FILM [facility] ABS. BASOPHILS 0.03 0.01 - 0.09 x10'3/uL 04/29/2024 2:30 PM MANAGER FILM [facility] ABS. IMMATURE GRANULOCYTES 0.02 0.00 - 0.09 x10'3/uL 04/29/2024 2:30 PM MANAGER FILM [facility] ABS. NUCLEATED RBC'S 0.00 0.00 - 0.01 x10'3/uL 04/29/2024 2:30 PM MANAGER FILM [facility] 04/29/2024 8:22 AM MANAGER FILM Moreno Jimenez MD LABORATORY Final Result Performing Organization Address City/State/[facility] Co de Phone Number [facility] [address] [place] [address], * MG DIAGNOSTIC RT DIGI (09/19/2023 3:25 PM CDT) Anatomical Region Laterality Modality Breast Right Mammography 09/19/2023 5:00 PM CDT Impressions 09/19/2023 5:09 PM CDT =====IMPRESSION:===== 2 biopsy clips in the right breast as detailed above. ASSESSMENT: WAITING FOR PATHOLOGY Recommendation: 1: Waiting on Pathology Right COMMENTS: Ordered By: LUZ BACON Interpreted By: Bal Woods, 09/19/2023 5:00 PM Narrative 09/19/2023 5:09 PM CDT EXAMINATION: Digital right diagnostic mammogram with 3-D tomography EXAM DATE/TIME: 09/19/2023 3:22 PM REASON FOR EXAM: ??post bx, abnormal mammogram ? Benign right breast biopsy in 2003. COMPARISON: 08/27/2023. 08/16/2023. TECHNIQUE: Digital diagnostic mammography of the right breast was performed in addition to 3-D Tomosynthesis technique. . This study was read with the assistance of a computer-aided detection system. TISSUE DENSITY: There are scattered areas of fibroglandular density. FINDINGS: Top hat clip within the approximate 11 to 12:00 position of the mid right breast where there was a grouping of macrocalcifications. Cylindrical shape clip at the approximate 10 to 11:00 position of the right breast, located posterior to the above-stated biopsy clip. This is at the level of prior numerous microcalcifications.. On the prior diagnostic mammogram the more posterior calcifications, had a [place] around and inferior grouping of calcifications. This appears to be different than the area noted on the CC magnification images on the prior diagnostic mammogram.. The [place] on the prior magnification ML image is located at approximately the 9:30 o'clock position posteriorly. Luz Bacon MD MAMMO Final Result * BONE DENSITY/DEXA (10/31/2022 9:32 AM CDT) Anatomical Region Laterality Modality Bone Bone Density 10/31/2022 12:1 2 PM CDT Impressions 10/31/2022 12:15 PM CDT Impression: BMD measured at AP lumbar spine, both total hips and both femoral necks all at WHO category level of normal. BMD measured at AP lumbar spine and left total hips slightly decreased since study 05/17/2004. Ordered By: ASHA CHAO Interpreted By: Oelg Masters MD, 10/31/2022 12:12 PM Narrative 10/31/2022 12:15 PM CDT Examination: DEXA Bone densitometry EXAM DATE: ??10/31/2022 9:21 AM Clinical history: Postmenopausal. Prior hysterectomy. Dairy product consumption. Weight-bearing exercise. Technique: DEXA bone minimal density evaluation was performed in the AP projection over the lumbar spine and over both hips in the AP projection utilizing standard imaging techniques. Assessment: The BMD measured at the AP spine L1-L4 is 1.061 g/cm2 with a T-score of 0.1 and a Z-Score of ??1.9. ?? Bone density is up to 10% below young normal. This patient is considered normal according to the World Health Organization (WHO) criteria. Fracture risk is low. The BMD measured at AP lumbar spine has decreased 0.102 g/sq cm since study 05/17/2004. The BMD measured at the femur total left is 1.013 g/cm2 with a T-score of 0.6 and a Z-Score of 1.8. ?Bone density is up to 10% below young normal. This patient is considered normal according to the World Health Organization (WHO) criteria. Fracture risk is low. The BMD measured at the left total hip has decreased 0.008 g/sq cm since study 05/17/2004. The BMD measured at the left femoral neck is 0.791 g/sq cm resulting in a T score of -0.5 and a Z score of 1.0, values at the WHO category level of normal. The BMD measured at the femur total right is 1.042 g/cm2 with a T-score of 0.8 and aZ-Score of ??2.0. ?? Bone density is up to 10% below young normal. This patient is considered normal according to the World Health Organization (WHO) criteria. Fracture risk is low. The BMD measured at the right femoral neck is 0.761 g/sq cm resulting in a T score of -0.8 and a Z score 0.7, values at the WHO category level of normal. Recommendations: All patients should ensure an adequate intake of dietary calcium and vitamin D. The NOF recommend adults under the age of 50 need 1000 mg of calcium and 400-800 IU of vitamin D daily. Effective therapy for the prevention and treatment of osteoporosis include biphosphonates. Follow-up: People with diagnosed cases of osteoporosis or at high risk for fracture should have regular bone mineral density test. For patients eligible for Medicare, routine testing is allowed once every 2 years. Testing frequency can be increased to one year for patients who have rapidly progressing disease, those who are receiving or discontinuing medical therapy to restore bone mass, or have additional risk factors. Based on these results, a followup exam is recommended in no earlier than 2 years. Procedure Note Oleg Masters MD - 10/31/2022 Examination: DEXA Bone densitometry EXAM DATE: 10/31/2022 9:21 AM Clinical history: Postmenopausal. Prior hysterectomy. Dairy productconsumption. Weight-bearing exercise. Technique: DEXA bone minimal density evaluation was performed in the APprojection over the lumbar spine and over both hips in the AP projectionutilizing standard imaging techniques. Assessment: The BMD measured at the AP spine L1-L4 is 1.061 g/cm2 with a T-score of0.1 and a Z-Score of 1.9. Bone density is up to 10% below young normal.This patient is considered normal according to the World HealthOrganization (WHO) criteria. Fracture risk is low. The BMD measured at AP lumbar spine has decreased 0.102 g/sq cm sincestudy 05/17/2004. The BMD measured at the femur total left is 1.013 g/cm2 with a T-score of0.6 and a Z-Score of 1.8. Bone density is up to 10% below young normal.This patient is considered normal according to the World HealthOrganization (WHO) criteria. Fracture risk is low. The BMD measured at the left total hip has decreased 0.008 g/sq cm sincestudy 05/17/2004. The BMD measured at the left femoral neck is 0.791 g/sq cm resulting in aT score of -0.5 and a Z score of 1.0, values at the WHO category level ofnormal. The BMD measured at the femur total right is 1.042 g/cm2 with a T-score of0.8 and aZ-Score of 2.0. Bone density is up to 10% below young normal.This patient is considered normal according to the World HealthOrganization (WHO) criteria. Fracture risk is low. The BMD measured at the right femoral neck is 0.761 g/sq cm resulting in aT score of -0.8 and a Z score 0.7, values at the WHO category level ofnormal. Recommendations: All patients should ensure an adequate intake of dietary calcium andvitamin D. The NOF recommend adults under the age of 50 need 1000 mg ofcalcium and 400-800 IU of vitamin D daily. Effective therapy for theprevention and treatment of osteoporosis include biphosphonates. Follow-up: People with diagnosed cases of osteoporosis or at high risk for fractureshould have regular bone mineral density test. For patients eligible forMedicare, routine testing is allowed once every 2 years. Testing frequencycan be increased to one year for patients who have rapidly progressingdisease, those who are receiving or discontinuing medical therapy torestore bone mass, or have additional risk factors. Based on these results, a followup exam is recommended in no earlier than2 years. Impression: BMD measured at AP lumbar spine, both total hips and both femoral necksall at WHO category level of normal. BMD measured at AP lumbar spine and left total hips slightly decreasedsince study 05/17/2004. Ordered By: ASHA CHAO Interpreted By: Oleg Masters MD, 10/31/2022 12:12 PM Asha Chao [employer]-BC DEXA Final Result * COLONOSCOPY GENERIC (09/20/2020) 09/20/2020 Narrative 09/20/2020 Ordered by an unspecified provider. us Documents Scanned SCANNING Final Result from Last 3 Months or Most Recently Relevant to Health Maintenance Insurance MEDICARE [employer] Care Teams District Extension Service Agent Relationship Specialty Start Date End Date Moreno Jimenez MD [address] [place] [address] PCP - General FAMILY PRACTICE 10/23/18 Brad Brand MD [address] [facility] [address] [place] [address] Consulting Physician INTERVENTIONAL CARDIOLOGY 10/28/18 Jc Browne MD 1 [place] [address] Consulting Physician RADIATION ONCOLOGY 10/08/23
--- OUTSIDE RECORDS SUMMARY | 2024-05-13 10:09 | XMS_ITS | Encounter Summary ---
Author Organization [facility] Address [address] [place] [address]. [place], [place] [address] [place] [address] Care Team Providers Care Field Assembly Supervisor Name Role Phone Moreno Jimenez MD Primary Care Provider [phone] Brad Brand MD Unavailable [phone] Jc Browne MD Unavailable Encounter Details Date Type Department Care Team (Late Contact Info) Description 03/28/2024 [employer] Message Enc [facility] Family Medicine-[place] Line [address] [place] [address] [facility] Provider Appointment Needed Social History Tobacco Use Types Packs/Day Years [...] Sex Assigned at Female 03/29/2021 4:02 PM METAL BURNISHER Legal Sex Female 5:01 PM CDT Gender Identity Female 03/29/2021 4:02 PM METAL BURNISHER Sexual Orientation Straight 03/29/2021 4: 02 PM METAL BURNISHER documented as of this encounter Plan of Treatment Upcoming Encounters Date Type Department Care Team (Late Contact Info) Description 08/19/2024 10:[address] [facility] [place] [address] Raudel Bacon MD [address] [facility] [address] [place], [place] [id number] documented as of this encounter Visit Diagnoses Not on filedocumented in this encounter Care Teams Field Assembly Supervisor Relationship Specialty Start Date End Date Moreno Jimenez MD [address] [place] [address] PCP - General FAMILY PRACTICE 10/23/18 Brad Brand MD [id number] [place] [address] Consulting Physician INTERVENTIONAL CARDIOLOGY 10/28/18 Jc Browne MD [address] [place], [place] [address] Consulting Physician RADIATION ONCOLOGY 10/08/23 documented as of this encounter
--- OUTSIDE RECORDS SUMMARY | 2024-05-13 10:09 | XMS_ITS ---
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 06/07/2015 Current Treatment and Therapy Plans CCSCI: Rituximab Maintanence - 56 Day Cycle - Non-Hodgkin Lymphoma* Plan Start Date:08/29/2021 Plan Provider:Michoacano Aponte III, MD Linked Problems 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 Past Treatment and Therapy Plans No past plan information found.
--- OUTSIDE RECORDS SUMMARY | 2024-05-13 10:10 | XMS_ITS | Clinical Summary ---
Author Organization [facility] Address [address] [place] [address] Care Team Providers Care Electrical Power Engineer Name Role Phone Moreno Jimenez MD Primary Care Provider [phone] Jc Browne MD Unavailable [phone] Mu Barrera DO Unavailable [phone] Allergies No known active allergies Medications mupirocin (BACTROBAN) 2 % ointmentIndicati ons:Local skin infection Apply topically 3 (three) times a day 22 g 2 Active Additional Information Patient not taking.Reported on 06/11/2023 benzonatate (TESSALON) 200 mg capsule Take 1 capsule (200 mg total) by mouth 3 (three) times a day as needed 3 Active guaiFENesin-code ine (GUAITUSS AC) liquid 100-10 mg/5 mL Take 5 mL by mouth every 4 (four) hours as needed Active hydroCHLOROthiaz kiara (MICROZIDE) 12.5 mg capsule Take 1 capsule (12.5 mg total) by mouth sprinkling system installer before breakfast 3 Active L. acidophilus/Bifi d. animalis 33 billion cell capsule Take 1 capsule by mouth Active lisinopriL (PRINIVIL,ZESTRI L) 10 mg tablet Take 1 tablet (10 mg total) by mouth daily 3 Active Lomaira 8 mg tablet Take 1 tablet by mouth 3 (three) times a day as needed 3 Active albuterol HFA (PROVENTIL HFA,VENTOLIN HFA,PROAIR HFA) 90 mcg/actuation inhaler INHALE 2 PUFFS INTO THE LUNGS EVERY 6 HOURS NEEDED FOR WHEEZING Active azelastine (ASTELIN) 137 mcg (0.1 %) nasal spray Administer 1 spray into affected nostril(s) 2 (two) times a day 3 Active azithromycin (ZITHROMAX) 250 mg tablet TAKE 2 TABLETS BY MOUTH FOR 1 DAY THEN TAKE 1 TABLET BY MOUTH FOR 4 DAYS Active fluorometholone (FML) 0.1 % ophthalmic suspension INSTILL 1 DROP INTO LEFT EYE THREE TIMES DAILY 4 Active multivitamin with minerals tablet Take 1 tablet by mouth daily Active nutritional supplements liquid Take by mouth daily Juice plus Active cetirizine (ZyrTEC) 10 mg tablet Take 1 tablet (10 mg total) by mouth daily as needed for allergies Active traMADoL (ULTRAM) 50 mg tablet Take 1 tablet (50 mg total) by mouth every 6 (six) hours 20 tablet 4 Active methylPREDNISolo ne (Medrol, Peewee,) 4 mg DosepackIndicati ons:Acute non-recurrent pansinusitis follow package directions 1 packet 4 Active fluconazole (Diflucan) 150 mg tablet 1 tablet, one time only, may repeat once after 4 days 2 tablet 4 Active Active Problems Problem Noted Date Diagnosed Date Hypogammaglobulinemia 11/03/2022 PVC's (premature ventricular contractions) 08/21 Sensorineural hearing loss (SNHL) of both ears 0 11/02/2020 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 06/07/2015 Surgical History Surgery Date Site/Laterality Comments APPENDECTOMY 04/16/2016 - 04/15/2017 HYSTERECTOMY partial SECTION 04/16/1986 - 04/15/1987 BREAST SURGERY 04/16/2003 - 04/15/2004 biopsy LYMPH NODE BIOPSY 04/16/2005 - 04/15/2006 groin--to diagnose lymphoma Medical History Medical History Date Comments Hypertension Cancer (CMS/HCC) (HCC) lymphoma 2012 ( in remission); Right breast 2023 Hypogammaglobulinemia (HCC) requ iring IVGG infusions PONV (postoperative nausea and vomiting) Post-nasal drip Social History Tobacco Use Types Packs/Day Years Used Date Smoking Tobacco: Never Tobacco Cessation:Counseling Given: Not Answered AUDIT-C Answer Date Recorded Q1: How often do you have a drink containing alc ohol? Monthly or less 10/24/2023 Q2: How many drinks containi ng alcohol do you have on a typical day when you are drinking? 1 or 2 10/24/2023 Frequency of Binge Drinking Not on file 10/14 Personal Safety Answer Date Recorded Have you ever been in or are you currently in a harmful physical or emotional relationship or is someone making you feel afraid or unsafe? Denies 11/05/2023 Comments Unknown Sex and Gender Information Value Date Recorded Sex Assigned at Not on file Legal Sex Female 2:16 PM RUG DYER HELPER Gender Identity Not on file Sexual Orientation Not on file Obstetrics History Last Filed Vital Signs Vital Sign Reading Time Taken Comments Blood Pressure 120/74 12/05/2023 9:55 AM CDT Pulse 67 12/05/2023 9:55 AM CDT Temperature 37.1 ??C (98.7 ??F) 12/05/2023 9:55 AM CD T Respiratory Rate 22 12/05/2023 9:55 AM CDT Oxygen Saturation 100% 12/05/2023 9:55 AM CDT Inhaled Oxygen Concentration - - Weight 87.1 kg (192 lb) 12/05/2023 9:55 AM CDT Height 162.6 cm (5' 4 ) 12/05/2023 9:55 AM CDT Body Mass Index 32.96 12/05/2023 9:55 AM CDT Plan of Treatment Health Maintenance Due Date Last Done Comments Colon Cancer Screening-Colonoscopy 1960 Depression Screening 1958 Fall Risk Assessment 1960 Hepatitis C Screening 1960 Pneumococcal vaccine 65+ (2 of 2 - PCV) 02/23/2015 02/23/2014 DTaP/Tdap/Td Vaccine (3 - Td or Tdap) 11/12/2019 11/11/2009, 11/07/2004, 11/07/2004 Well Visit 65+ 2023 Covid-19 Vaccine (4 - 2023-2 5 season) 2023 02/18/2021, 07/14/2020, 06/16/2020 Influenza Vaccine (#1) 2023 , 01/13/2021, 01/16/2020, Additional history exists Breast Cancer Screening-Mammogram 08/15/2024 08/16/2023, 08/16/2023, 07/03/2022, Additional history exists Osteoporosis Screening-Bone Density Scan 10/31/2024 10/31/2022 Zoster Vaccine Completed 03/19/2021, 01/13/2021 Insurance MEDICARE [employer] CLAIMS OFFICE [employer] CLAIMS OFFICE MEDICARE Care Teams Electrical Power Engineer Relationship Specialty Start Date End Date Moreno Jimenez MD [address] [place] [id number] PCP - General Family Practice 11/05/23 Jc Browne MD [address] [place] [address] Radiation Oncology 11/06/23 Mu Barrera DO [address] [place] [phone] Referring Physician Medical Oncology 11/06/23
--- OUTSIDE RECORDS SUMMARY | 2024-05-13 10:10 | XMS_ITS | Encounter Summary ---
Author Organization [facility] Address [address] [place] [address]. [place], [place] [id number] [place] [address] Care Team Providers Care Scheduling Representative Name Role Phone Moreno Jimenez MD Primary Care Provider [phone] Brad Brand MD Unavailable [phone] Jc Browne MD Unavailable Encounter Details Date Type Department Care Team (Late Contact Info) Description 01/25/2023 [employer] Message Enc [facility]le [facility] [id number] [place] [phone] [facility] Provider 01/29 Appointment Social History Tobacco Use Types Packs/Day Years [...] Sex Assigned at Female 03/29/2021 4:02 PM READING INTERVENTION TEACHER Legal Sex Female 5:01 PM CDT Gender Identity Female 03/29/2021 4:02 PM READING INTERVENTION TEACHER Sexual Orientation Straight 03/29/2021 4: 02 PM READING INTERVENTION TEACHER documented as of this encounter Plan of Treatment Upcoming Encounters Date Type Department Care Team (Late st Contact Info) Description 08/19/2024 10:[address] [facility] [address] [place] [address] Raudel Bacon MD [address] [facility] [address] [place] [address] documented as of this encounter Visit Diagnoses Not on filedocumented in this encounter Care Teams Scheduling Representative Relationship Specialty Start Date End Date Moreno Jimenez MD [address] [place] [address] PCP - General FAMILY PRACTICE 10/23/18 Brad Brand MD [address] [place] [phone] Consulting Physician INTERVENTIONAL CARDIOLOGY 10/28/18 Jc Browne MD 1 [place], [place] [phone] Consulting Physician RADIATION ONCOLOGY 10/08/23 documented as of this encounter
--- OUTSIDE RECORDS SUMMARY | 2024-05-13 10:10 | XMS_ITS | Encounter Summary ---
Author Organization [facility] Address [address] [place] [address]. [place], [place] [phone] [place] [address] Care Team Providers Care Architecture Internship Name Role Phone Moreno Jimenez MD Primary Care Provider [phone] Brad Brand MD Unavailable [phone] Jc Browne MD Unavailable Encounter Details Date Type Department Care Team (Latest Contact Info) Description 09/21/2021 [employer] Message Enc [facility]is[facility]ial[facility] - [place] [address], [facility] [address] [place] [address] [facility] Provider Please call to schedule your annual wellness visit Social History Tobacco Use Types Packs/Day Years Used Date Smoking Tobacco: Never Smokeless Tobacco: Never Alcohol Use Standard Drinks/Week Comments Yes 0 (1 standard drink = 0.6 oz pur e alcohol) social PHQ-2 Answer Date Recorded PHQ-2 Score - If the patient scores above 3, please move on to questions 3-9 0 08/09/2020 Comments No Sex and Gender Information Value Date Recorded Sex Assigned at Female 03/29/2021 4:02 PM DEPUTY CORONER INVESTIGATOR Legal Sex Female 5:01 PM CDT Gender Identity Female 03/29/2021 4:02 PM DEPUTY CORONER INVESTIGATOR Sexual Orientation Straight 03/29/2021 4: 02 PM DEPUTY CORONER INVESTIGATOR documented as of this encounter Plan of Treatment Upcoming Encounters Date Type Department Care Team (Late st Contact Info) Description 08/19/2024 10:[address] [facility] [place] [address] Raudel Bacon MD [address] [phone] documented as of this encounter Visit Diagnoses Not on filedocumented in this encounter Care Teams Architecture Internship Relationship Specialty Start Date End Date Moreno Jimenez MD [address] [place] [address] PCP - General FAMILY PRACTICE 10/23/18 Brad Brand MD [address] [facility] [address] [place] [phone] Consulting Physician INTERVENTIONAL CARDIOLOGY 10/28/18 Jc Browne MD [address] [place] [address] Consulting Physician RADIATION ONCOLOGY 10/08/23 documented as of this encounter
--- OUTSIDE RECORDS SUMMARY | 2024-05-13 10:10 | XMS_ITS | Referral Summary ---
Author Organization [facility] [place] Address [address] [place] [address] Care Team Providers Care Canal Structure Operator Name Role Phone Moreno Jimenez MD Primary Care Provider [phone] Jc Browne MD Unavailable [phone] Mu Barrera DO Unavailable [phone] Allergies No known active allergies Medications mupirocin [...] 1 capsule (12.5 mg total) by mouth chicken picker before breakfast 3 Active L. acidophilus/Bifi d. [...] of lymph nodes of multiple regions 06/07/2015 Social History Tobacco Use Types Packs/Day Years [...] on file Legal Sex Female 2:16 PM FILLETER Gender Identity Not on file Sexual Orientation [...] 12/05/2023 9:55 AM CDT Plan of Treatment Not on file Insurance [id number] MEDICARE [employer] CLAIMS OFFICE [employer] CLAIMS OFFICE MEDICARE Care Teams Canal Structure Operator Relationship Specialty Start Date End Date Moreno Jimenez MD [address] [place] [address] PCP - General Family Practice 11/05/23 Jc Browne MD [address] [place] [address] Radiation Oncology 11/06/23 Mu Barrera, [address] [place] [phone] Referring Physician Medical Oncology 11/06/23
--- OUTSIDE RECORDS SUMMARY | 2024-05-13 12:12 | XMS_ITS | Clinical Summary ---
Author Organization [facility] Address [address] [place] [address] Phone Care Team Providers Care Thai Masseur Name Role Phone Moreno Jimenez MD Primary Care Provider [phone] Mu Barrera DO Unavailable [phone] Allergies No known active allergies Medications [...] Active azelastine (ASTELIN) 0.1 % Solution 1 [place] by Nasal route as needed for Rhinitis. 25 mL 11/23/19 24 Active Additional Information Patient not taking.Reported on 05/05/2024 [facility] [place], [place] Natural Products (IMMUNE BOOST PO) Take by mouth. Activ e tamoxifen citrate 20 MG Tablet Take 1 Tablet by mouth daily 30 Tablet 3 03/03/20 24 Active Probiotic Product ([facility] [place], [place] Intestinal Daxa Regulat) Capsule Take 1 Capsule [...] Department Care Team Description 05/06/2024 8:30 AM [facility] Clinical Support [facility] [address] [address] Nurse, Dali Naranjo History of non-Hodgkin's lymphoma (Primary Dx); Hypogammaglobulinemia (HCC) 05/06/2024 Telephone [facility] [address] [address] Mu Barrera, 05/05/2024 9:45 AM [facility] Office Visit [facility] [address] [address] Mu Barrera, History of non-Hodgkin's lymphoma (Primary Dx); Hypogammaglobulinemia (HCC) 05/05/2024 9:30 AM [facility] Lab [facility] [address] [address] [facility] Hypogammaglobulinemia (HCC); Ductal carcinoma in situ (DCIS) of right breast; Vitamin D deficiency 05/05/2024 Travel 04/30/2024 Telephone [facility] [address] [address] Mu Barrera, 04/04/2024 8:15 AM [facility] Clinical Support [facility] [address] [address] Nurse, Cc Ofriaz History of non-Hodgkin's lymphoma (Primary Dx); Hypogammaglobulinemia (HCC) 04/04/2024 Travel 04/02/2024 Telephone [facility] [address] [address] Mu Barrera, 04/01/2024 Results Follow-Up [facility] [address] [address] Atiya Mejia, FINAL INSPECTION SUPERVISOR, PRESS MACHINE FEEDER 03/31/2024 9:00 AM [facility] Lab [facility] [address] [address] Lab, Cc Ofallon Hypogammaglobulinemia (HCC) 03/31/2024 Travel 03/04/2024 Telephone [facility] [address] [address] Atiya Mejia, FINAL INSPECTION SUPERVISOR, PRESS MACHINE FEEDER 03/03/2024 9:45 AM [facility] Office Visit [facility] [address] [phone] Atiya Mejia, FINAL INSPECTION SUPERVISOR, PRESS MACHINE FEEDER Hypogammaglobulinemia (HCC) (Primary Dx); Ductal carcinoma in situ (DCIS) of right breast; Vitamin D deficiency; Diarrhea, unspecified type 03/03/2024 9:30 AM [facility] Lab [facility] [address] [address] Lab, Cc Ofallon Hypogammaglobulinemia (HCC); Ductal carcinoma [...] Valent 4 Pneumococcal conjugate PCV20 , polysaccharide TPL101 conjugate, adjuvant, PF 12/11/2022 RSV, Recombinant, Protein [...] Comments Blood Pressure 102/62 05/05/2024 9:44 AM [facility] Pulse 62 05/05/2024 9:44 AM [facility] Temperature 36.6 ??C (97.9 ??F) 05/05/2024 9:44 AM CS T Respiratory Rate 16 05/05/2024 9:44 AM [facility] Oxygen Saturation 97% 05/05/2024 9:44 AM [facility] Inhaled Oxygen Concentration - - Weight 86.6 kg (190 lb 14.4 oz) 05/05/2024 9:44 AM [facility] Height 162.6 cm (5' 4 ) 05/05/2024 9:44 AM [facility] Body Mass Index 32.77 05/05/2024 9:44 AM [facility] Plan of Treatment Upcoming Encounters Date Type Department Care Team (Late st Contact Info) Description 06/16/2024 9:00 AM [facility] Lab [facility] [address] [address] Lab, [facility] 06/23/2024 8:30 AM CDT Clinical Support [facility] [address] [address] 07/21/2024 8:30 AM CDT Clinical Support [facility] [address] [address] 08/04/2024 8:30 AM CDT Lab [facility] [address] [address] Lab, [facility] 08/04/2024 8:45 AM CDT Office Visit [facility] [address] [address] Mu Barrera, DO [address] [place] [phone] Health Maintenance Due Date Last Done Comments [...] AUTO DIFF OH Routine 05/05/2024 9:33 AM [facility] CMP (COMPREHENSIVE METABOLIC PANEL) Routine 05/05/2024 9:33 AM [facility] Hypogammaglobuline julius (HCC) Ductal carcinoma in situ (DCIS) of right breast Vitamin D deficiency IMMUNOGLOBULIN IGA, IGG & IGM QUANT Routine 05/05/2024 9:33 AM [facility] Hypogammaglobuline julius (HCC) Ductal carcinoma in situ (DCIS) of right breast Vitamin D deficiency VITAMIN D, 25 HYDROXY TOTAL Routine 05/05/2024 9:33 AM [facility] Hypogammaglobuline julius (HCC) Ductal carcinoma in situ (DCIS) of right breast Vitamin D deficiency IMMUNOGLOBULIN IGA, IGG & IGM QUANT Routine 03/31/2024 8:52 AM [facility] Hypogammaglobuline julius (HCC) CBC WITH AUTO DIFF OH Routine 03/03/2024 9:33 AM [facility] CMP (COMPREHENSIVE METABOLIC PANEL) Routine 03/03/2024 9:33 AM [facility] Hypogammaglobuline julius (HCC) Ductal carcinoma in situ (DCIS) of right breast IMMUNOGLOBULIN IGA, IGG & IGM QUANT Routine 03/03/2024 9:33 AM [facility] Hypogammaglobuline julius (HCC) Ductal carcinoma in situ (DCIS) of right breast COLOGUARD Routine 08/23/2020 STEPHEN SCREENING CHAR W IMPL DIGITAL W CAD Routine 06/04/2020 from Last 3 Months or Most Recently Relevant to Health Maintenance Results * VITAMIN D, 25 HYDROXY TOTAL (05/05/2024 9:33 AM [facility]ERS[facility]) 25() Vitamin D, Total 32.7 30.0 - 100.0 ng/mL [facility] Comment: The Clinical Guidelines Subcommittee of the Endocrine Society Task Force established the guidelines below for recommended serum 25(OH) vitamin D levels. ??Other clinical reference citations may show different values. Deficient ? <20 ? Insufficient ? 20 to <30 ? Sufficient ? 30 to 100 ? Upper Safety Limit ?>100 Blood 05/05/2024 9:33 AM [facility] Narrative [facility] - 05/06/2024 10:52 AM [facility] Release to patient->Immediate us Atiya Mejia FINAL INSPECTION SUPERVISOR, PRESS MACHINE FEEDER CHEMISTRY ORDERABLES Final Result [facility] [place] [address], [place] [phone] * (ABNORMAL) CBC WITH AUTO DIFF [place] (05/05/2024 9:33 AM [facility]ERS[facility]) Only the most recent of2 resultswithin the time period is included. WBC 4.8 4.0 - 10.0 10*3/uL [facility] HGB 12.8 11.2 - 15.7 g/dL [facility] HCT 40.0 34.1 - 44.9 % [facility] PLT 192 163 - 369 10*3/uL [facility] MPV 11.8 9.4 - 12.4 fL [facility] RBC 4.69 3.93 - 5.22 10*6/uL [facility] MCV 85 79 - 95 fL [facility] MCH 27.3 25.6 - 32.2 pg [facility] MCHC 32.0(L) 32.2 - 36.5 g/dL [facility] RDW 13.3 11.6 - 14.4 % [facility] Neutrophils % 65.7 36.0 - 66.0 % [facility] Lymphocytes % 21.1 19.0 - 40.0 % [facility] Monocytes % 6.5 4.1 - 12.1 % [facility] Eosinophils % 6.1(H) 0.0 - 3.5 % [facility] Basophils % 0.4 0.0 - 1.0 % [facility] Absolute Neutrophils 3.1 1.4 - 6.6 10*3/uL [facility] Absolute Lymphocytes 1.0 0.8 - 4.0 10*3/uL [facility] Absolute Monocytes 0.3 0.2 - 1.2 10*3/uL [facility] Absolute Eosinophils 0.3 0.0 - 0.4 10*3/uL [facility] Absolute Basophils 0.0 0.0 - 0.1 10*3/uL [facility] 05/05/2024 9:33 AM [facility] Atiya Mejia APRN, DOTTIE LAB SEND OUTS Final Result [facility] [address] [place] [address], [place] [phone] * (ABNORMAL) IMMUNOGLOBULIN IGA, IGG & IGM QUANT (05/05/2024 9:33 AM [facility]) Only the most recent of3 resultswithin the time period is included. IGG 654 635 - 1,741 mg/dL [facility] IGA <10(L) 66 - 433 mg/dL [facility] IGM <20(L) 45 - 281 mg/dL [facility] Blood 05/05/2024 9:33 AM [facility] Narrative [facility] - 05/05/2024 3:41 PM [facility] Release to patient->Immediate Atiya Mejia APRN, PRESS MACHINE FEEDER CHEMISTRY ORDERABLES Final Result Performing Organization Address [facility] Co de Phone Number [facility] Cancer Care [address] [address], [place] [phone] * (ABNORMAL) CMP (COMPREHENSIVE METABOLIC PANEL) (05/05/2024 9:33 AM [facility]) Only the most recent of2 resultswithin the time period is included. Glucose 117(H) 70 - 105 mg/dL [facility] Blood Urea Nitrogen 15 7 - 25 mg/dL [facility] Creatinine 0.8 0.6 - 1.2 mg/dL [facility] Sodium 142 136 - 145 mEq/L [facility] Potassium 4.5 3.5 - 5.1 mEq/L [facility] Chloride 108(H) 98 - 107 mEq/L [facility] Bicarbonate 29 21 - 31 mEq/L [facility] Total Bilirubin 0.3 0.3 - 1.0 mg/dL [facility] Alk. Phosphatase 40 34 - 104 U/L [facility] Aspartate Aminotransferase 17 13 - 39 U/L [facility] Alanine Aminotransferase 17 7 - 52 U/L [facility] Total Protein 6.2(L) 6.4 - 8.9 g/dL [facility] Albumin 4.3 3.5 - 5.7 g/dL [facility] Calcium 9.6 8.6 - 10.3 mg/dL [facility] Anion Gap 9.5 7.0 - 15.0 mEq/L [facility] Globulin 1.9(L) 2.0 - 3.5 g/dL [facility] EGFR 81 >60 ml/min/1. 73m2 [facility] Comment: This eGFR is calculated using 2020 CKD-EPI Creatinine equation without race modifier based on the NKF-ASN task force recommendations Blood 05/05/2024 9:33 AM [facility] Narrative [facility] - 05/05/2024 10:57 AM [facility] Release to patient->Immediate IS THE PATIENT REQUIRED TO BE FASTING FOR 8 HOURS?->No us Atiya Mejia APRN, CNP CHEMISTRY ORDERABLES Final Result [facility] [address] [place] [address], * COLOGUARD (08/23/2020) us Michoacano Aponte III, MD BODY FLUIDS & STOOLS ORDERA BLES Final Result * STEPHEN SCREENING CHAR W IMPL DIGITAL W CAD (06/04/2020) Anatomical Region Laterality Modality breast Bilateral Mammography us Not On File Provider IMG MAMMO ORDERABLES Final Result from Last 3 Months or Most Recently Relevant to Health Maintenance Insurance MEDICARE [facility] Care Teams Thai Masseur Relationship Specialty Start Date End Date Moreno Jimenez MD [address] [place] [address] PCP - General Family Medicine 12/13/18 Mu Barrera, [address] [place] [phone] Consulting Physician Oncology 12/05/23
--- OUTSIDE RECORDS SUMMARY | 2024-05-13 12:12 | XMS_ITS | Encounter Summary ---
Author Organization [facility] Address [address] [place] [address]. [place], [place] [id number] [place] [address] Care Team Providers Care Furnace Charging Machine Operator Name Role Phone Moreno Jimenez MD Primary Care Provider [phone] Brad Brand MD Unavailable [phone] Jc Browne MD Unavailable Encounter Details Date Type Department Care Team (Late st Contact Info) Description 06/03/[address] [facility] [facility] Conversion [address] [place], [place] [id number] , Generic Conversion, Social History Tobacco Use Types Packs/Day Years Used Date Smoking Tobacco: Never Assessed Comments Unknown Sex and Gender Information Value Date Recorded Sex Assigned at Female 03/29/2021 4:02 PM FLOAT PHLEBOTOMIST Legal Sex Female 5:01 PM CDT Gender Identity Female 03/29/2021 4:02 PM FLOAT PHLEBOTOMIST Sexual Orientation Straight 03/29/2021 4: 02 PM FLOAT PHLEBOTOMIST documented as of this encounter Plan of Treatment Upcoming Encounters Date Type Department Care Team (Late st Contact Info) Description 08/19/2024 10:00 AM CDT Appointment [facility] [address] [place] [address] Raudel Bacon MD [address] [address] documented as of this encounter Visit Diagnoses Not on filedocumented in this encounter Care Teams Furnace Charging Machine Operator Relationship Specialty Start Date End Date Moreno Jimenez MD [address] [place] [address] PCP - General FAMILY PRACTICE 10/23/18 Brad Brand MD [address] [facility] [address] [place] [id number] Consulting Physician INTERVENTIONAL CARDIOLOGY 10/28/18 Jc Browne MD [address] [place], [place] [address] Consulting Physician RADIATION ONCOLOGY 10/08/23 documented as of this encounter
--- OUTSIDE RECORDS SUMMARY | 2024-05-13 12:12 | XMS_ITS | Clinical Summary ---
Author Organization [facility] Address [address] [place] [address]. 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 ([facility]) 06/07/2015 Encounters Date Type Department Care Team Description 05/05/2024 Scan Natrix Separations SRVCS Scanned, Doc Med Group 04/29/2024 8:22 AM IV RN - 04/29/2024 11:59 PM IV RN Hospital Encounter [facility] [address] [place] [address] Moreno Jimenez MD Discharge Disposition: Home or Self Care (Routine Discharge) 04/29/2024 8:00 AM IV RN Office Visit [facility] [address] [place] [address] Moreno Jimenez MD Medication Check (Here for a med check) 04/29/2024 Travel 03/28/2024 MyChart Message Enc [facility] [address] [place] [address] [facility] 03/03/2024 Scan HEALTH INFO SRVCS Scanned, Doc Med Group [...] Adult (Generic) 01/18/2022,,01/16/2020,2018,02/07/2018,01/12/2017,12/31/2015,1 MMR 12/09/2004,11/07/2004 MODERNA COVID-19 (MANAGER MECHANICAL CHASTITY JOSE), MRNA, LNP-S, PF, 50 MCG/ [...] Sex Assigned at Female 03/29/2021 4:02 PM IV RN Legal Sex Female 5:01 PM CDT Gender Identity Female 03/29/2021 4:02 PM IV RN Sexual Orientation Straight 03/29/2021 4: 02 PM IV RN Last Filed Vital Signs Vital Sign Reading Time Taken Comments Blood Pressure 126/74 04/29/2024 7:59 AM IV RN Pulse 69 04/29/2024 7:59 AM IV RN Temperature 37.1 ??C (98.7 ??F) 04/29/2024 7:59 AM CS T Respiratory Rate 18 04/29/2024 7:59 AM IV RN Oxygen Saturation 98% 04/29/2024 7:59 AM IV RN Inhaled Oxygen Concentration - - Weight 86.2 kg (190 lb) 04/29/2024 7:59 AM IV RN Height 162.6 cm (5' 4 ) 04/29/2024 7:59 AM IV RN Body Mass Index 32.61 04/29/2024 7:59 AM IV RN Plan of Treatment Upcoming Encounters Date Type Department Care Team (Late st Contact Info) Description 08/19/2024 10:00 AM CDT Appointment [facility] [place] [address] Luz Bacon MD [facility] [address] [address] Health Maintenance Due Date Last Done Comments Hepatitis C 02/27/1976 DTaP, Tdap and Td Vaccines (2 - Td or Tdap) 11/12/2019 11/11/2009, 11/07/2004, 11/07/2004 Annual Medicare Wellness Visit 2023 COVID-19 Vaccine (3 - season) 2023 02/18/2021, 07/14/2020 (Patient Reported) Influenza Adult (#1) 2024 01/18/2022, 01/13/2021, 01/13/2021, Additional history exists PHQ-2 (Physician [place]) 04/29/2025 04/29/2024 Mammogram Screening 09/18/2025 09/19/2023, 08/27/2023, 08/16/2023, Additional history exists Colorectal Cancer Screening Colonoscopy (10 Years) 09/20/2030 09/20/2020, 09/20/2020 RSV Immunization or 60+ Years (1 - 1-dose 75+ series) 2033 Zoster Vaccines Completed 03/19/2021, 01/13/2021 Dexa Scan (General) Completed 10/31/2022, Pneumococcal Vaccine: 65+ Years Completed 12/11/2022, 02/23/2014 PHQ-2 (Physician [place]) Completed 04/29/2024 Meningococcal B Vaccine Aged Out [...] URINALYSIS, AUTO, COMPLETE Routine 04/29/2024 8:30 AM IV RN Essential hypertension TSH W/REFLEX Routine 04/29/2024 8:22 AM IV RN Essential hypertension LIPID PANEL Routine 04/29/2024 8:22 AM IV RN Hyperlipidemia, unspecified hyperlipidemia type COMPREHENSIVE METABOLIC PANEL Routine 04/29/2024 8:22 AM IV RN Essential hypertension CBC W/DIFF AUTOMATED Routine 04/29/2024 8:22 AM IV RN Essential hypertension MG DIAGNOSTIC RT DIGI Routine 09/19/2023 3:25 PM CDT Abnormal mammogram BONE DENSITY/DEXA Routine 10/31/2022 9:3 2 AM CDT Encounter for screening for osteoporosis COLONOSCOPY GENERIC (SCAN ORDER) 09/20/2020 from Last 3 Months or Most Recently Relevant to Health Maintenance Results * URINALYSIS, AUTO, COMPLETE (04/29/2024 8:30 AM IV RN) COLOR (U) LIGHT YELLOW 04/29/2024 2:34 PM IV RN [facility] TRANSPARENCY CLEAR 04/29/2024 2:34 PM IV RN [facility] SPECIFIC GRAVITY (U) 1.021 1.003 - 1.030 04/29/2024 2:34 PM IV RN [facility] U PH 5.5 5.0 - 9.0 04/29/2024 2:34 PM IV RN [facility] LEUKOCYTES (U) NEGATIVE NEGATIVE 04/29/2024 2:34 PM IV RN [facility] NITRITES NEGATIVE NEGATIVE 04/29/2024 2:34 PM IV RN [facility] PROTEIN RANDOM (U) NEGATIVE NEGATIVE 04/29/2024 2:34 PM IV RN [facility] GLUCOSE (U) NORMAL NORMAL 04/29/2024 2:34 PM IV RN [facility] KETONES MG/DL (U) NEGATIVE NEGATIVE 04/29/2024 2:34 PM IV RN [facility] UROBILINOGEN NORMAL NORMAL MG/DL 04/29/2024 2:34 PM IV RN [facility] BILIRUBIN (U) NEGATIVE NEGATIVE 04/29/2024 2:34 PM IV RN [facility] BLOOD (U) NEGATIVE NEGATIVE 04/29/2024 2:34 PM IV RN [facility] MUCUS PRESENT 04/29/2024 2:34 PM IV RN [facility] WBC/HPF 0-5 0 - 5 /HPF 04/29/2024 2:34 PM IV RN [facility] RBC/HPF 0-5 0 - 5 /HPF 04/29/2024 2:34 PM IV RN [facility] SQUAMOUS EPITHELIALS 0-3 04/29/2024 2:34 PM IV RN [facility] COMMENT (U) URINE RESULTS 04/29/2024 2:34 PM IV RN [facility] URINE SPECIMEN OBTAINED BY CLEAN CATCH PROCEDURE / Unknown 04/29/2024 8:30 AM IV RN us Moreno Jimenez MD URINE ORDERABLES Final Result [facility] [address] [place] [address], * TSH W/REFLEX (04/29/2024 8:22 AM IV RN) TSH 1.400 0.358 - 3.740 uIU/ML 04/29/2024 2:53 PM IV RN [facility] Comment: FREE T4 NOT INDICATED ASSAY PERFORMED BY CHEMILUMINESCENCE METHODOLOGY USING SIEMENS DIMENSION VISTA REAGENT. PATIENT RESULTS DETERMINED BY ASSAYS USING DIFFERENT MANUFACTURERS FOR METHODS MAY NOT BE COMPARABLE. 04/29/2024 8:22 AM IV RN Moreno Jimenez MD LABORATORY Final Result [facility] [address] [place] [address], * (ABNORMAL) COMPREHENSIVE METABOLIC PANEL (04/29/2024 8:22 AM IV RN) Pathologist [facility] SODIUM S/P/B 140 136 - 145 MMOL/L 04/29/2024 2:53 PM [facility] POTASSIUM S/P/B 4.3 3.5 - 5.1 MMOL/L 04/29/2024 2:53 PM [facility] CHLORIDE S/P/B 110 97 - 115 MMOL/L 04/29/2024 2:53 PM [facility] CO2 27.0 21.0 - 32.0 MMOL/L 04/29/2024 2:53 PM [facility] GLUCOSE 101 74 - 106 MG/DL 04/29/2024 2:53 PM [facility] BUN 19(H) 7 - 18 MG/DL 04/29/2024 2:53 PM [facility] CREATININE S/P/B 0.81 0.55 - 1.02 MG/DL 04/29/2024 2:53 PM [facility] CALCIUM S/P/B 9.3 8.5 - 10.1 MG/DL 04/29/2024 2:53 PM [facility] BILIRUBIN TOTAL S/P/B 0.4 0.2 - 1.0 MG/DL 04/29/2024 2:53 PM [facility] ALKALINE PHOSPHATASE S/P/B 53 45 - 117 U/L 04/29/2024 2:53 PM [facility] AST 17 15 - 37 U/L 04/29/2024 2:53 PM [facility] ALT 31 13 - 56 U/L 04/29/2024 2:53 PM [facility] TOTAL PROTEIN S/P/B 6.5 6.4 - 8.2 G/DL 04/29/2024 2:53 PM [facility] ALBUMIN S/P/B 3.8 3.4 - 5.0 G/DL 04/29/2024 2:53 PM [facility] ANION GAP 3.0 2.0 - 10.0 MMOL/L 04/29/2024 2:53 PM [facility] OSMOLALITY (CALC) 292 MOSM/KG 025 2:53 PM [facility] Comment:REFERENCE RANGE NOT ESTABLISHED GFR ESTIMATE 80(L) >89 ML/MIN/1. 73 M2 04/29/2024 2:53 PM [facility] GFR NOTES GFR REFERENCE S: 04/29/2024 2:53 PM [facility] Comment: THE ESTIMATED GFR IS CALCULATED [...] FAILURE: <15 ml/min/1.73 m2 04/29/2024 8:22 AM IV RN Moreno Jimenez MD LABORATORY Final Result [facility] [address] [place] [address], * (ABNORMAL) LIPID PANEL (04/29/2024 8:22 AM IV RN) CHOLESTEROL 201(H) 0 - 199 MG/DL 04/29/2024 2:53 PM IV RN [facility] TRIGLYCERIDES 184(H) 0 - 149 MG/DL 04/29/2024 2:53 PM IV RN [facility] HDL 57 >39 MG/DL 04/29/2024 2:53 PM IV RN [facility] LDL (CALCULATED) 107(H) <100 MG/DL 04/29/19 25 2:53 PM IV RN [facility] VLDL CALCULATION 37 MG/DL 04/29/19 25 2:53 PM IV RN [facility] Comment:REFERENCE RANGE NOT ESTABLISHED CHOL/HDL RATIO 3.5 04/29/2024 2:53 PM IV RN [facility] Comment:REFERENCE RANGE NOT ESTABLISHED LDL/HDL 2.0 04/29/2024 2:53 PM IV RN [facility] Comment:REFERENCE RANGE NOT ESTABLISHED NON HDL CHOLESTEROL 144 MG/DL 04/29/2024 2:53 PM IV RN [facility] Comment:REFERENCE RANGE NOT ESTABLISHED 04/29/2024 8:22 AM IV RN Moreno Jimenez MD LABORATORY Final Result [facility] [address] [place] [address], * (ABNORMAL) CBC W/DIFF AUTOMATED (04/29/2024 8:22 AM IV RN) WBC 5.71 4.60 - 9.10 x10'3/uL 04/29/2024 2:30 PM IV RN [facility] RBC 4.88 3.90 - 5.00 x10'6/uL 04/29/2024 2:30 PM IV RN [facility] HGB 13.2 11.8 - 14.7 G/DL 04/29/2024 2:30 PM IV RN [facility] HCT 41.2 36.3 - 45.2 % 04/29/2024 2:30 PM IV RN [facility] MCV 84.4 80.0 - 98.0 FL 04/29/2024 2:30 PM IV RN [facility] MCH 27.0 26.8 - 32.1 PG 04/29/2024 2:30 PM IV RN [facility] MCHC 32.0 30.7 - 34.2 G/DL 04/29/2024 2:30 PM IV RN [facility] RDW 13.2 12.0 - 14.8 % 04/29/2024 2:30 PM IV RN [facility] PLT 194 145 - 358 x10'3/uL 04/29/2024 2:30 PM IV RN [facility] MPV 13.1(H) 8.8 - 12.3 FL 04/29/2024 2:30 PM IV RN [facility] SEG NEUTROPHILS 63.5 % 2:30 PM IV RN [facility] LYMPHOCYTES 22.2 % 04/29/2024 2:30 PM IV RN [facility] MONOCYTES 8.1 % 04/29/2024 2:30 PM IV RN [facility] EOSINOPHILS 5.3 % 04/29/2024 2:30 PM IV RN [facility] BASOPHILS 0.5 % 04/29/2024 2:30 PM IV RN [facility] IMMATURE GRANS % 0.4 % 04/29/19 2:30 PM IV RN [facility] NRBC % 0.0 % 04/29/2024 2:30 PM IV RN [facility] ABS. NEUTROPHILS 3.63 2.30 - 5.70 x10'3/uL 04/29/2024 2:30 PM IV RN [facility] ABS. LYMPHOCYTES 1.27 1.10 - 3.30 x10'3/uL 04/29/2024 2:30 PM IV RN [facility] ABS. MONOCYTES 0.46 0.30 - 0.80 x10'3/uL 04/29/2024 2:30 PM IV RN [facility] ABS. EOSINOPHILS 0.30 0.03 - 0.45 x10'3/uL 04/29/2024 2:30 PM IV RN [facility] ABS. BASOPHILS 0.03 0.01 - 0.09 x10'3/uL 04/29/2024 2:30 PM IV RN [facility] ABS. IMMATURE GRANULOCYTES 0.02 0.00 - 0.09 x10'3/uL 04/29/2024 2:30 PM IV RN [facility] ABS. NUCLEATED RBC'S 0.00 0.00 - 0.01 x10'3/uL 04/29/2024 2:30 PM IV RN [facility] 04/29/2024 8:22 AM IV RN Moreno Jimenez MD LABORATORY Final Result Performing Organization Address City/State/[facility] Co de Phone Number [facility] [address] [place] [address], * MG DIAGNOSTIC RT DIGI (09/19/2023 3:25 [...] mammogram the more posterior calcifications, had a umkumiut around and inferior grouping of calcifications. This appears to be different than the area noted on the CC magnification images on the prior diagnostic mammogram.. The umkumiut on the prior magnification ML image is [...] By: Oleg Masters MD, 10/31/2022 12:12 PM Narrative 10/31/2022 [...] Masters MD, 10/31/2022 12:12 PM Asha Chao TAIL WORKER-BC DEXA Final Result * COLONOSCOPY GENERIC (09/20/2020) 09/20/2020 Narrative 09/20/2020 Ordered by an unspecified provider. us Documents Scanned SCANNING Final Result from Last 3 Months or Most Recently Relevant to Health Maintenance Insurance MEDICARE HUMAN COMMERCIAL PAYER Care Teams Paralegal Supervisor Relationship Specialty Start Date End Date Moreno Jimenez MD [address] [place] [address] PCP - General FAMILY PRACTICE 10/23/18 Brad Brand MD [address] [facility] [address] [place] [address] Consulting Physician INTERVENTIONAL CARDIOLOGY 10/28/18 Jc Browne MD [address] [place] [address] Consulting Physician RADIATION ONCOLOGY 10/08/23
--- OUTSIDE RECORDS SUMMARY | 2024-05-13 12:12 | XMS_ITS | Encounter Summary ---
Author Organization [facility] Address [address] [place] [address]. [place], [place] [address] [place] [address] Care Team Providers Care Nurse'S Companion Name Role Phone Moreno Jimenez MD Primary Care Provider [phone] Brad Brand MD Unavailable [phone] Jc Browne MD Unavailable Encounter Details Date Type Department Care Team (Latest Contact Info) Description 05/05/2024 Scan HEALTH INFO SRVCS Scanned, Doc Med Group Social History Tobacco Use Types Packs/Day Years Used Date Smoking Tobacco: Never Smokeless Tobacco: Never Comments:She does not plan t o start. Alcohol Use Standard Drinks/Week Comments Not Currently 0 (1 standard drink = 0.6 oz pur e alcohol) Sockally, maybe once a month PHQ-2 Answer Date Recorded Patient Health Questionnaire-2 Score 0 04/29/2024 Comments No Sex and Gender Information Value Date Recorded Sex Assigned at Female 03/29/2021 4:02 PM PERSONALIZED LIVING ASSISTANT Legal Sex Female 5:01 PM CDT Gender Identity Female 03/29/2021 4:02 PM PERSONALIZED LIVING ASSISTANT Sexual Orientation Straight 03/29/2021 4: 02 PM PERSONALIZED LIVING ASSISTANT documented as of this encounter Plan of Treatment Upcoming Encounters Date Type Department Care Team (Late st Contact Info) Description 08/19/2024 10:00 AM CDT Appointment [facility] [address] [place] [address] Raudel Bacon MD [address] [facility] [address] [place] [address] documented as of this encounter Visit Diagnoses Not on filedocumented in this encounter Care Teams Nurse'S Companion Relationship Specialty Start Date End Date Moreno Jimenez MD [address] [place] [address] PCP - General FAMILY PRACTICE 10/23/18 Brad Brand MD [address] [facility] [address] [place] [address] Consulting Physician INTERVENTIONAL CARDIOLOGY 10/28/18 Jc Browne MD 1 [place] [address] Consulting Physician RADIATION ONCOLOGY 10/08/23 documented as of this encounter
--- OUTSIDE RECORDS SUMMARY | 2024-05-13 12:12 | XMS_ITS | Encounter Summary ---
Author Organization [facility] Address [address] [place] [address]. [place], [place] [address] [place] [address] Care Team Providers Care Sliver Lap Machine Tender Name Role Phone Moreno Jimenez MD Primary Care Provider [phone] Brad Brand MD Unavailable [phone] Jc Browne MD Unavailable Encounter Details Date Type Department Care Team (Late Contact Info) Description 01/25/2023 Ubimo Message Enc [facility] Medical Group [facility] [id number] [place] [phone] [facility] Provider 01/29 Appointment Social History Tobacco Use [...] Sex Assigned at Female 03/29/2021 4:02 PM DIRECTOR OF KNOWLEDGE MANAGEMENT Legal Sex Female 5:01 PM CDT Gender Identity Female 03/29/2021 4:02 PM DIRECTOR OF KNOWLEDGE MANAGEMENT Sexual Orientation Straight 03/29/2021 4: 02 PM DIRECTOR OF KNOWLEDGE MANAGEMENT documented as of this encounter Plan of Treatment Upcoming Encounters Date Type Department Care Team (Late st Contact Info) Description 08/19/2024 10:[address] [facility] [place] [address] Raudel Bacon MD [address] [facility] [address] [place] [address] documented as of this encounter Visit Diagnoses Not on filedocumented in this encounter Care Teams Sliver Lap Machine Tender Relationship Specialty Start Date End Date Moreno Jimenez MD [address] [place] [address] PCP - General FAMILY PRACTICE 10/23/18 Brad Brand MD [address] [place] [phone] Consulting Physician INTERVENTIONAL CARDIOLOGY 10/28/18 Jc Browne MD [address] [place], [place] [address] Consulting Physician RADIATION ONCOLOGY 10/08/23 documented as of this encounter
--- OUTSIDE RECORDS SUMMARY | 2024-05-13 12:12 | XMS_ITS ---
Author Organization [facility] Address [address] [place] [address] Phone Care Team Providers Care Office Worker Name Role Phone Moreno Jimenez MD Primary Care Provider [phone] Mu Barrera DO Unavailable [phone] Active Problems Problem Noted Date Diagnosed [...]
--- OUTSIDE RECORDS SUMMARY | 2024-05-13 12:12 | XMS_ITS | Referral Summary ---
Author Organization [facility] [facility] [place] Address [address] [place] [phone] Care Team Providers Care Auto Painter Helper Name Role Phone Moreno Jimenez MD Primary Care Provider [phone] Jc Browne MD Unavailable [phone] Mu Barrera DO Unavailable [phone] Allergies No known active allergies Medications mupirocin [...] 1 capsule (12.5 mg total) by mouth jigman before breakfast 3 Active L. acidophilus/Bifi d. [...] on file Legal Sex Female 2:16 PM HARDWOOD FLOOR REFINISHER Gender Identity Not on file Sexual Orientation [...] Plan of Treatment Not on file Insurance [id number] MEDICARE HUMA[employer] CLAIMS OFFICE [employer] CLAIMS OFFICE MEDICARE Care Teams Auto Painter Helper Relationship Specialty Start Date End Date Moreno Jimenez MD [address] [place] [address] PCP - General Family Practice 11/05/23 Jc Browne MD [address] [place] [address] Radiation Oncology 11/06/23 Mu Barrera, [address] [place] [phone] Referring Physician Medical Oncology 11/06/23
--- OUTSIDE RECORDS SUMMARY | 2024-05-13 12:12 | XMS_ITS | Clinical Summary ---
Author Organization [facility] [facility] [place] Address [address] [place] [phone] Care Team Providers Care Dowel Setting Machine Operator Name Role Phone Moreno Jimenez MD Primary Care Provider [phone] Jc Browne MD Unavailable [phone] Mu Barrera DO Unavailable [phone] Allergies No known active allergies Medications mupirocin [...] 1 capsule (12.5 mg total) by mouth cylinder steamer before breakfast 3 Active L. acidophilus/Bifi d. [...] on file Legal Sex Female 2:16 PM ARMHOLE BASTER HAND Gender Identity Not on file Sexual Orientation [...] Zoster Vaccine Completed 03/19/2021, 01/13/2021 Insurance MEDICARE [employer] CLAIMS OFFICE HU[employer] CLAIMS OFFICE MEDICARE Care Teams Dowel Setting Machine Operator Relationship Specialty Start Date End Date Moreno Jimenez MD [address] [place] [id number] PCP - General Family Practice 11/05/23 Jc Browne MD [address] [place] [address] Radiation Oncology 11/06/23 Mu Barrera DO [address] [place] [phone] Referring Physician Medical Oncology 11/06/23
--- OUTSIDE RECORDS SUMMARY | 2024-05-13 12:12 | XMS_ITS | Encounter Summary ---
Author Organization [facility] Address [address] [place] [address]. [place], [place] [address] [place] [address] Care Team Providers Care Fine Wire Drawer Name Role Phone Moreno Jimenez MD Primary Care Provider [phone] Brad Brand MD Unavailable [phone] Jc Browne MD Unavailable Encounter Details Date Type Department Care Team (Late st Contact Info) Description 03/09/[address] [address] [place], [place] [address] , Generic Conversion, Social History Tobacco Use Types Packs/Day Years Used Date Smoking Tobacco: Never Assessed Comments Unknown Sex and Gender Information Value Date Recorded Sex Assigned at Female 03/29/2021 4:02 PM PRODUCTION ADMINISTRATIVE ASSISTANT Legal Sex Female 5:01 PM CDT Gender Identity Female 03/29/2021 4:02 PM PRODUCTION ADMINISTRATIVE ASSISTANT Sexual Orientation Straight 03/29/2021 4: 02 PM PRODUCTION ADMINISTRATIVE ASSISTANT documented as of this encounter Plan of Treatment Upcoming Encounters Date Type Department Care Team (Late st Contact Info) Description 08/19/2024 10:00 AM CDT Appointment [facility] [address] [place] [address] Raudel Bacon MD [address] [address] documented as of this encounter Visit Diagnoses Not on filedocumented in this encounter Care Teams Fine Wire Drawer Relationship Specialty Start Date End Date Moreno Jimenez MD [address] [place] [address] PCP - General FAMILY PRACTICE 10/23/18 Brad Brand MD [address] [facility] [address] [place] [phone] Consulting Physician INTERVENTIONAL CARDIOLOGY 10/28/18 Jc Browne MD 1 [place], [place] [address] Consulting Physician RADIATION ONCOLOGY 10/08/23 documented as of this encounter
--- OUTSIDE RECORDS SUMMARY | 2024-05-13 12:12 | XMS_ITS | Encounter Summary ---
Author Organization [facility] Address [address] [place] [address]. [place] [address] [place] [address] Care Team Providers Care Survey Analyst Name Role Phone Moreno Jimenez MD Primary Care Provider [phone] Brad Brand MD Unavailable Jc Browne MD Unavailable Encounter Details Date Type Department Care Team (Late st Contact Info) Description 02/23/2023 MyChart Message Enc [facility] Medical Group Family Medicine-[place] [address] [place], [place] [id number] Moreno Jimenez MD [address] [place], [place] [address] Lab and CT Scan Results from Cancer [...] Sex Assigned at Female 03/29/2021 4:02 PM HANDICAPPED TEACHER Legal Sex Female 5:01 PM CDT Gender Identity Female 03/29/2021 4:02 PM HANDICAPPED TEACHER Sexual Orientation Straight 03/29/2021 4: 02 PM HANDICAPPED TEACHER documented as of this encounter Plan of Treatment Upcoming Encounters Date Type Department Care Team (Late st Contact Info) Description 08/19/2024 10:00 AM CDT Appointment [facility] [address] Raudel Bacon MD [address] [address] documented as of this encounter Visit Diagnoses Not on filedocumented in this encounter Care Teams Survey Analyst Relationship Specialty Start Date End Date Moreno Jimenez MD [address] [place] [address] PCP - General FAMILY PRACTICE 10/23/18 Brad Brand MD [address] [facility] [address] [place] [address] Consulting Physician INTERVENTIONAL CARDIOLOGY 10/28/18 Jc Browne MD 1 [place] [address] Consulting Physician RADIATION ONCOLOGY 10/08/23 documented as of this encounter
--- OUTSIDE RECORDS SUMMARY | 2024-05-13 12:12 | XMS_ITS | Encounter Summary ---
Author Organization [facility] Address [address] [place] [address]. [place], [place] [address] [place] [address] Care Team Providers Care Motor Teacher Name Role Phone Moreno Jimenez MD Primary Care Provider [phone] Brad Brand MD Unavailable [phone] Jc Browne MD Unavailable Encounter Details Date Type Department Care Team (Late Contact Info) Description 03/28/2024 [employer] Message Enc [facility] Medical Group Family Medicine-[place] [address] [place] [address] [facility] Provider Appointment Needed Social History Tobacco [...] Sex Assigned at Female 03/29/2021 4:02 PM STAFF DEVELOPMENT EDUCATOR Legal Sex Female 5:01 PM CDT Gender Identity Female 03/29/2021 4:02 PM STAFF DEVELOPMENT EDUCATOR Sexual Orientation Straight 03/29/2021 4: 02 PM STAFF DEVELOPMENT EDUCATOR documented as of this encounter Plan of Treatment Upcoming Encounters Date Type Department Care Team (Late Contact Info) Description 08/19/2024 10:[address] [facility] [place] [address] Raudel Bacon MD [address] [facility] [address] [place], [place] [phone] documented as of this encounter Visit Diagnoses Not on filedocumented in this encounter Care Teams Motor Teacher Relationship Specialty Start Date End Date Moreno Jimenez MD [address] [place] [address] PCP - General FAMILY PRACTICE 10/23/18 Brad Brand MD [address] [place] [address] Consulting Physician INTERVENTIONAL CARDIOLOGY 10/28/18 Jc Browne MD 1 [place], [place] [address] Consulting Physician RADIATION ONCOLOGY 10/08/23 documented as of this encounter
--- OUTSIDE RECORDS SUMMARY | 2024-05-13 12:12 | XMS_ITS | Clinical Summary ---
Author Organization [employer] Gerry Zavala Address [address] [address] Care Team Providers Care Airborne Operations Superintendent Name Role Phone Unavailable Primary Care Provider [...] on file Legal Sex Female 8:47 AM BOX TOE FLANGER STITCHDOWNS Gender Identity Not on file Sexual Orientation [...]
--- OUTSIDE RECORDS SUMMARY | 2024-05-13 12:12 | XMS_ITS | Encounter Summary ---
Author Organization [facility] Address [address] [place] [address]. [place], [place] [id number] [place] [address] Care Team Providers Care Player Services Representative Name Role Phone Moreno Jimenez MD Primary Care Provider [phone] Brad Brand MD Unavailable [phone] Jc Browne MD Unavailable Encounter Details Date Type Department Care Team (Latest Contact Info) Description 09/21/[address] [facility] [place] [address] [facility], [facility] [address] [place] [address] [facility] Provider Please call to schedule your [...] Sex Assigned at Female 03/29/2021 4:02 PM SEWER LINE PHOTO INSPECTOR Legal Sex Female 5:01 PM CDT Gender Identity Female 03/29/2021 4:02 PM SEWER LINE PHOTO INSPECTOR Sexual Orientation Straight 03/29/2021 4: 02 PM SEWER LINE PHOTO INSPECTOR documented as of this encounter Plan of Treatment Upcoming Encounters Date Type Department Care Team (Late st Contact Info) Description 08/19/2024 10:[address] [facility] [place] [address] Raudel Bacon MD [address] [id number] documented as of this encounter Visit Diagnoses Not on filedocumented in this encounter Care Teams Player Services Representative Relationship Specialty Start Date End Date Moreno Jimenez MD [address] [place] [address] PCP - General FAMILY PRACTICE 10/23/18 Brad Brand MD [address] [facility] [address] [place] [id number] Consulting Physician INTERVENTIONAL CARDIOLOGY 10/28/18 Jc Browne MD [address] [place] [address] Consulting Physician RADIATION ONCOLOGY 10/08/23 documented as of this encounter
[2024-05-19 18:33] LABS: Pancreatic Elastase, Stool 270 mcg/g (>200)
[2024-05-21 03:28] LABS: Gliadin AB, IgG <1.0 U/mL; Immunoglobulin A <5 mg/dL (70-320); TTG IGA AB <1.0 U/mL; Tissue Transglutaminase IgG Ab <1.0 U/mL
[2024-05-21 17:59] LABS: Calprotectin, Stool 7 mcg/g
== END 2024-05-13 11:05 | disposition home or self-care (01) ==
PROVIDERS: PCP Internal Medicine Medical Oncology; Visit Provider Nurse Practitioner Family
DX: R19.4 Change in bowel habit (principal); R15.9 Full incontinence of feces; R19.7 Diarrhea, unspecified
CPT/HCPCS: 36415; 82653; 82784; 83516; 83993

== ENCOUNTER 2024-08-31 01:58 | Emergency (ER) | payer MEDICARE, SELFPAY ==
--- OUTSIDE RECORDS SUMMARY | 2024-08-31 02:01 | XMS_ITS | Encounter Summary ---
Author Organization [facility] Address [address] [place] [address] Care Team Providers Care Kitchen Work Supervisor Name Role Phone Moreno Jimenez MD Primary Care Provider [phone] Brad Brand MD Unavailable Jc Browne MD Unavailable Encounter Details Date Type Department Care Team (Late Contact Info) Description 03/09/[address] [facility] [address] [place], [place] [address] , Generic Conversion, Social History Tobacco Use Types Packs/Day Years Used Date Smoking Tobacco: Never Assessed Comments Unknown Sex and Gender Information Value Date Recorded Sex Assigned at Female 03/29/2021 4:02 PM CONVERTER SKIMMER Legal Sex Female 5:01 PM CDT Gender Identity Female 03/29/2021 4:02 PM CONVERTER SKIMMER Sexual Orientation Straight 03/29/2021 4: 02 PM CONVERTER SKIMMER Travel History Travel Start Travel End [facility] 08/12/2024 08/20/2024 documented as of this encounter Plan of Treatment Upcoming Encounters Date Type Department Care Team (Late st Contact Info) Description 02/03/2025 10:00 AM CDT Office Visit [facility] [address] [place] [address] Kaur Banks AUD [address] [place] [address] documented as of this encounter Visit Diagnoses Not on filedocumented in this encounter Care Teams Kitchen Work Supervisor Relationship Specialty Start Date End Date Moreno Jimenez MD [address] [place] [address] PCP - General FAMILY PRACTICE 10/23/18 Brad Brand MD [address] [place] [address] Consulting Physician INTERVENTIONAL CARDIOLOGY 10/28/18 Jc Browne MD [address] [place], [place] [address] Consulting Physician RADIATION ONCOLOGY 10/08/23 documented as of this encounter
--- OUTSIDE RECORDS SUMMARY | 2024-08-31 02:01 | XMS_ITS ---
Author Organization [facility] Address [address] [place] [address] Phone Care Team Providers Care Damper Worker Name Role Phone Moreno Jimenez MD Primary Care Provider [phone] Mu Barrera DO Unavailable [phone] Active Problems Problem Noted Date Diagnosed [...]
--- OUTSIDE RECORDS SUMMARY | 2024-08-31 02:01 | XMS_ITS | Clinical Summary ---
Author Organization [facility] Address [address] [place] [address] Care Team Providers Care Aging Box Hand Name Role Phone Moreno Jimenez MD Primary Care Provider [phone] Brad Brand MD Unavailable [phone] Jc Browne MD Unavailable Allergies No known active allergies Medications MULTIPLE VITAMIN OR Take by mouth daily. Active Nutritional Supplements (JUICE PLUS FIBRE OR) Take 1 tablet by mouth daily. Active NON FORMULARY Immunoglobulin Infusion - x1 monthly Active tamoxifen (NOLVADEX) 20 MG tablet Take 1 tablet by mouth daily. 11/23/19 24 Active Misc Natural Products (IMMUNE BOOST) Cap 02/15/20 24 Active lisinopril (PRINIVIL) 10 MG tabletIndication s:Essential hypertension TAKE 1 TABLET(10 MG) BY MOUTH DAILY 90 tablet 1 06/21/19 25 Active omeprazole (PRILOSEC) 20 MG capsule Take 1 capsule (20 mg total) by mouth daily. 05/26/19 25 Active BRA - POST MASTECTOMY, DME,Indications: History of breast cancer in female Apply 1 Device topically daily. 4 Device 07/01/19 25 Active BREAST PROSTHESISIndica tions:History of breast cancer in female 1 Device by Does not apply route daily. 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 ([facility]) 06/07/2015 Encounters Date Type Department Care Team Description 08/26/2024 12:00 PM CDT - 08/26/2024 11:59 PM CDT Hospital Encounter [facility] Mammography [address] [place] [address] Luz Bacon MD Discharge Disposition: Home or Self Care (Routine Discharge) 08/26/2024 Travel 08/25/2024 Scan [facility] HEALTH INFO SRVCS Scanned, [facility] 08/05/2024 9:00 AM CDT Office Visit [facility] Audiology [address] [place] [address] Kaur Banks AUD Hearing Aid Check; Hearing Aid Purchase Date 08/05/2024 Travel 08/04/2024 Scan MG HEALTH INFO SRVCS Scanned, [facility] 07/30/2024 Scan MG HEALTH INFO SRVCS Scanned, Doc [facility] 07/28/2024 Scan MG HEALTH INFO SRVCS Scanned, Doc [facility] 07/21/2024 2:30 PM CDT Office Visit [facility] Audiology [address] [place] [address] Kaur Banks AUD Hearing Aid Check 07/21/2024 Travel 07/21/2024 Orders Only [facility] Family MedicineLuz [address] [place] [id number] Asha Chao FNP-BC 07/18/2024 Telephone [facility] Family Fauzia [address] [place] [id number] Asha Chao FNP-BC Request (Referral) 07/09/2024 3:54 PM CDT - 07/09/2024 11:59 PM CDT Hospital Encounter [facility] [address] [place] [address] Chao, Asha, RN PRODUCTION-BC Discharge Disposition: Home or Self Care (Routine Discharge) 07/09/2024 Travel 07/07/2024 1:00 PM CDT Office Visit [facility] Audiology [address] [facility] [place] [address] Kaur Banks AUD Hearing Aid Fit 07/07/2024 Travel 07/03/2024 8:29 AM CDT - 07/03/2024 11:59 PM CDT Hospital Encounter [facility] - Laboratory [address] [place] [id number] Asha Chao FNP-JERI Discharge Disposition: Home or Self Care (Routine Discharge) 07/03/2024 Orders Only [facility] Family Medicine-Kendy [address] [place] [address] Asha Chao FNP-JREI 07/03/2024 Telephone [facility] Family MedicineLuz [address] [place] [id number] Asha Chao FNP-JERI FYI 07/03/2024 Travel 07/02/2024 Orders Only [facility] Family MedicineLuz [address] [place] [address] Asha Chao FNP-JERI 07/01/2024 Telephone [facility] MedicineStefanieDawn [address] [place] [id number] Asha Chao FNP-JERI Information 06/30/2024 11:10 AM CDT - 06/30/2024 11:59 PM CDT Hospital Encounter [facility] - Diagnostic Imaging [address] [place] [id number] Asha Chao FNP-JERI Discharge Disposition: Home or Self Care (Routine Discharge) 06/30/2024 10:20 AM CDT Office Visit [facility] MedicineLuz [address] [place] [id number] Asha Chao FNP-JERI Hip Pain (Svitlana is here with concerns of her tamoxifen. She had pain in left leg and hip a couple weeks ago. When she was on vacation, she had increased pain. Oncologist nurse noted to stop taking tamoxifen, stopped on 06/25. She notes triglycerides have been up. Her triglycerides were 284 when doing screening in May. She was advised to maybe getting images performed on hip. She also would like to discuss having mastectomy on healthy breast to stop medicine.) 06/30/2024 Scan MG HEALTH INFO SRVCS Scanned, [facility] 06/30/2024 Travel 06/25/2024 11:00 AM CDT Office Visit [facility] Audiology [address] [place] [address] Kaur Banks AUD Hearing Aid Evaluation 06/25/2024 Travel 06/24/2024 Scan MG HEALTH INFO SRVCS Scanned, [facility] 06/07/2024 Scan MG HEALTH INFO SRVCS Scanned, [facility] ECG (SCAN) 06/05/2024 1:00 PM STATION CHIEF Office Visit [facility] Audiology [address] [place] [address] Kaur Banks AUD Frost, Robert, MD Hearing Problem 06/05/2024 Travel from Last 3 Months Immunizations Immunization Administration Dates Next Due Afluria 36 MONTHS+ (Prefille d Syringe IIV4) 01/11/2019 Diphtheria and Tetanus Toxoi ds Adsorbed 11/07/2004 H1N1 2009 Influenza Vaccine 01/13/2021, 4 Hepatitis A 07/03/2006,02/06/2006 Hepatitis A (Generic) 07/03/2006,02/06/2006,12/15 Hepatitis A/Hepatitis B (Aka Twinrix) 07/03/2006 ,02/06/2006,01/02/2006 Influenza (Fluvirin) 01/11/2019,01/12/2017,02/12 Influenza (Generic) 02/12/2015 Influenza Adult (Generic) 01/18/2022,,01/16/2020,2018,02/07/2018,01/12/2017,12/31/2015,1 MMR 12/09/2004,11/07/2004 MODERNA COVID-19 (CRM DEVELOPER CHASTITY JOSE), MRNA, LNP-S, PF, 50 MCG/ [...] Smokeless Tobacco: Never Tobacco Cessation:Counseling Given: No Comments:She does not plan to start. Alcohol Use Standard Drinks/Week Comments Not Currently 0 (1 standard drink = 0.6 oz pur e alcohol) Sockally, maybe once a month PHQ-2 Answer Date Recorded Patient Health Questionnaire-2 Score 0 04/29/2024 Comments No Sex and Gender Information Value Date Recorded Sex Assigned at Female 03/29/2021 4:02 PM STATION CHIEF Legal Sex Female 5:01 PM CDT Gender Identity Female 03/29/2021 4:02 PM STATION CHIEF Sexual Orientation Straight 03/29/2021 4: 02 PM STATION CHIEF Travel History Travel Start Travel End [place] 08/12/2024 08/20/2024 Last Filed Vital Signs Vital Sign Reading Time Taken Comments Blood Pressure 134/84 06/30/2024 10:21 AM CDT Pulse 62 06/30/2024 10:21 AM CDT Temperature 36.2 C (97.2 F) 06/30/2024 10:21 AM CDT Respiratory Rate 18 04/29/2024 7:59 AM STATION CHIEF Oxygen Saturation 98% 06/30/2024 10:21 AM CDT Inhaled Oxygen Concentration - - Weight 87.5 kg (193 lb) 06/30/2024 10:21 AM CDT Height 162.6 cm (5' 4 ) 06/30/2024 10:21 AM CDT Body Mass Index 33.13 06/30/2024 10:21 AM CDT Plan of Treatment Upcoming Encounters Date Type Department Care Team (Late st Contact Info) Description 02/03/2025 10:00 AM CDT Office Visit [facility] Audiology [address] [place] [address] JocelynKaur, AUD [address] [place] [address] Health Maintenance Due Date Last Done Comments Hepatitis C 02/27/1976 DTaP, Tdap and Td Vaccines (2 - Td or Tdap) 11/12/2019 11/11/2009, 11/07/2004, 11/07/2004 Annual Medicare Wellness Visit 2023 COVID-19 Vaccine (3 - season) 2023 02/18/2021, 07/14/2020 (Patient Reported) Mammogram Screening 08/26/2026 08/26/2024, 09/19/2023, 08/27/2023, Additional history exists Colorectal Cancer Screening Colonoscopy (10 Years) 09/20/2030 09/20/2020, 09/20/2020 Zoster Vaccines Completed 03/19/2021, 01/13/2021 Dexa Scan (General) Completed 10/31/2022, Pneumococcal Vaccine: 50+ Years Completed 12/11/2022, 02/23/2014 RSV Immunization or 60+ Years Completed 01/09/2024 PHQ-2 (Physician [place]) Completed 04/29/2024 Meningococcal B Vaccine Aged Out No l onger eligible based on patient's age to complete this topic Meningococcal Vaccine Aged Out No isac jj eligible based on patient's age to complete this topic RSV Immunizations Under 20 Months Aged Out No longer eligible based on patient's age to complete this topic Procedures Procedure Name Priority Date/Time Associated Diagnosis Comments MG SCREENING W ELIZABETH LT DIGI Routine 08/26/2024 1:30 PM CDT Screening mammogram, encounter for MRI HIP LT WO CON Routine 07/09/2024 4:4 4 PM CDT Left hip pain Abnormal x-ray LIPID PANEL Routine 07/03/2024 8:29 AM CDT Hyperlipidemia, unspecified hyperlipidemia type XR LUMB SPINE 3V Routine 06/30/2024 11:2 0 AM CDT Left hip pain XR HIP LT 2V Routine 06/30/2024 11:20 AM CDT Left hip pain ECG GENERIC (SCAN ORDER) 06/07/2024 BONE DENSITY/DEXA Routine 10/31/2022 9:3 2 AM CDT Encounter for screening for osteoporosis COLONOSCOPY GENERIC (SCAN ORDER) 09/20/2020 from Last 3 Months or Most Recently Relevant to Health Maintenance Results * MG SCREENING W ELIZABETH LT DIGI (08/26/2024 1:30 PM CDT) Anatomical Region Laterality Modality Breast Left Mammography 08/26/2024 3:23 PM CDT Impressions 08/26/2024 3:29 PM CDT =====IMPRESSION:===== No mammographic findings suggestive of malignancy ASSESSMENT: ACR BI-RADS 2 - BENIGN FINDING(S) Recommendation: 1: Routine Screening Left Ordered By: LUZ Adams [facility] Interpreted By: Regino Chong MD, 08/26/2024 3:23 PM Narrative 08/26/2024 3:29 PM CDT [facility] [address] [place] [address] EXAMINATION: Digital left screening mammogram with 3-D tomosynthesis EXAM DATE/TIME: 08/26/2024 12:13 PM REASON FOR EXAM: Routine screening. History of right breast DCIS. Prior right mastectomy in 2023. COMPARISON: 08/16/2023, 07/03/2022 TECHNIQUE: Digital screening mammography of the left breast was performed in addition to 3-D Tomosynthesis technique. This study was read with the assistance of a computer-aided detection system. TISSUE DENSITY: There are scattered areas of fibroglandular density. FINDINGS: The breast parenchymal pattern is stable. Benign-appearing calcifications are noted. No suspicious masses, malignant appearing calcifications, skin thickening or other abnormalities are present. No significant change from the prior exam. us Luz Bacon MD MAMMO Final Result * MRI HIP LT WO CON (07/09/2024 4:44 PM CDT) Anatomical Region Laterality Modality Hip Magnetic Resonan ce 07/15/2024 1:24 PM CDT Impressions 07/15/2024 1:33 PM CDT IMPRESSION: 1. Partial tear of the left gluteus minimus insertion with surrounding soft tissue swelling indicating peritendinitis. 2. Mild gluteus minimus atrophy bilaterally. 3. Labral degeneration without definite tear (if detailed labral evaluation is clinically indicated consider MR arthrogram follow-up). 4. Scattered partial and full thickness cartilage fissuring, indicating osteoarthritis of the left hip. 5. Partially imaged osteoarthritis of the right hip and bilateral sacroiliac joints as well. Ordered By: ASHA CHAO Interpreted By: Uriel Hyman, 07/15/2024 1:24 PM Narrative 07/15/2024 1:33 PM CDT [facility] [address] [place] [address] EXAMINATION: MRI LEFT HIP WITHOUT CONTRAST EXAM DATE: 07/09/2024 4:08 PM REASON FOR EXAM: Chronic left hip pain Left hip pain COMPARISON: None TECHNIQUE: Multiplanar multisequence imaging of the left hip without intravenous contrast. FINDINGS: Lower lumbar spine not imaged. Partially imaged sacroiliac joints demonstrate osteoarthritis. Limited evaluation of the pelvic viscera demonstrates no abnormal fluid collection or mass. Limited evaluation of the right hip demonstrates osteoarthritis. No abnormal marrow signal abnormality, no suspicious bone lesion or fracture. Hamstring origins are intact bilaterally. Dedicated images of the left hip: No joint effusion. Gluteus medius insertion and intact. Partial tear gluteus minimus insertion with surrounding soft tissue swelling indicating peritendinitis. No evidence of iliopsoas or trochanteric bursitis. Labral degeneration without definite tear (if detailed labral evaluation is clinically indicated consider MR arthrogram follow-up). Scattered partial and full thickness chondral fissuring compatible with osteoarthritis. No suspicious bone lesion or fracture. No evidence of avascular necrosis or subchondral signal abnormality. Mild gluteus minimus atrophy bilaterally. Procedure Note Uriel Hyman MD - 07/15/2024 [facility] [address] [place] [address] EXAMINATION: MRI LEFT HIP WITHOUT CONTRAST EXAM DATE: 07/09/2024 4:08 PM REASON FOR EXAM: Chronic left hip pain Left hip pain COMPARISON: None TECHNIQUE: Multiplanar multisequence imaging of the left hip withoutintravenous contrast. FINDINGS: Lower lumbar spine not imaged. Partially imaged sacroiliac joints demonstrate osteoarthritis. Limited evaluation of the pelvic viscera demonstrates no abnormal fluidcollection or mass. Limited evaluation of the right hip demonstrates osteoarthritis. Noabnormal marrow signal abnormality, no suspicious bone lesion orfracture. Hamstring origins are intact bilaterally. Dedicated images of the left hip: No joint effusion. Gluteus medius insertion and intact. Partial tear gluteus minimusinsertion with surrounding soft tissue swelling indicatingperitendinitis. No evidence of iliopsoas or trochanteric bursitis. Labral degeneration without definite tear (if detailed labral evaluationis clinically indicated consider MR arthrogram follow-up). Scattered partial and full thickness chondral fissuring compatible withosteoarthritis. No suspicious bone lesion or fracture. No evidence of avascular necrosisor subchondral signal abnormality. Mild gluteus minimus atrophy bilaterally. IMPRESSION: 1. Partial tear of the left gluteus minimus insertion with surroundingsoft tissue swelling indicating peritendinitis. 2. Mild gluteus minimus atrophy bilaterally. 3. Labral degeneration without definite tear (if detailed labralevaluation is clinically indicated consider MR arthrogram follow-up). 4. Scattered partial and full thickness cartilage fissuring, indicatingosteoarthritis of the left hip. 5. Partially imaged osteoarthritis of the right hip and bilateralsacroiliac joints as well. Ordered By: ASHA CHAO Interpreted By: Uriel Hyman, 07/15/2024 1:24 PM Asha Chao [facility]- MRI Final Result * (ABNORMAL) LIPID PANEL (07/03/2024 8:29 AM CDT) CHOLESTEROL 233(H) 0 - 199 MG/DL 07/03/2024 1:58 PM CDT [facility] TRIGLYCERIDES 148 0 - 149 MG/DL 07/03/2024 1:58 PM CDT [facility] HDL 61 >39 MG/DL 07/03/2024 1:58 PM CDT [facility] LDL (CALCULATED) 142(H) <100 MG/DL 07/04/19 25 1:58 PM CDT [facility] VLDL CALCULATION 30 MG/DL 07/04/19 25 1:58 PM CDT [facility] Comment:REFERENCE RANGE NOT ESTABLISHED CHOL/HDL RATIO 3.8 07/03/2024 1:58 PM CDT [facility] Comment:REFERENCE RANGE NOT ESTABLISHED LDL/HDL 2.0 07/03/2024 1:58 PM CDT [facility] Comment:REFERENCE RANGE NOT ESTABLISHED NON HDL CHOLESTEROL 172 MG/DL 07/03/2024 1:58 PM CDT [facility] Comment:REFERENCE RANGE NOT ESTABLISHED 07/03/2024 8:29 AM CDT Asha Chao [facility] Final Result [facility] [address] [place] [address], * XR LUMB SPINE 3V (06/30/2024 11:20 AM CDT) Anatomical Region Laterality Modality Spine Radiographic Anastasiia ging 06/30/2024 3:09 PM CDT Impressions 06/30/2024 3:10 PM CDT IMPRESSION: No acute findings. Minimal spondylosis. Referred By: Interpreted By: Servando Huffman MD, 06/30/2024 3:09 PM Narrative 06/30/2024 3:[address] PM [address]T [address] [address] Examination: Lumbar spine. Exam time: 1110 hours. Clinical history: Left hip pain. Comparison: None. Technique: AP, lateral and spot lateral views. Findings: There is no fracture or dislocation. The vertebral bodies are maintained normally in height. There is minimal anterolisthesis at L4-5. Alignment is otherwise satisfactory. The intervertebral disc spaces are maintained normally in height. Minor paravertebral osteophyte formation is noted. The paraspinous soft tissues are unremarkable. Clothing artifact is noted. Procedure Note Servando Huffman MD - 06/30/[address] [address] Examination: Lumbar spine. Exam time: 1110 hours. Clinical history: Left hip pain. Comparison: None. Technique: AP, lateral and spot lateral views. Findings: There is no fracture or dislocation. The vertebral bodies aremaintained normally in height. There is minimal anterolisthesis at L4-5.Alignment is otherwise satisfactory. The intervertebral disc spaces aremaintained normally in height. Minor paravertebral osteophyte formationis noted. The paraspinous soft tissues are unremarkable. Clothingartifact is noted. IMPRESSION: No acute findings. Minimal spondylosis. Referred By: Interpreted By: Servando Huffman MD, 06/30/2024 3:09 PM Asha Chao RN PRODUCTION-BC GENERAL IMAGING Final Result * XR HIP LT 2V (06/30/2024 11:20 AM CDT) Anatomical Region Laterality Modality Hip Radiographic Anastasiia ging 06/30/2024 1:15 PM CDT Impressions 06/30/2024 1:26 PM CDT IMPRESSION: No acute findings. Referred By: Interpreted By: Servando Huffman MD, 06/30/2024 1:15 PM Narrative 06/30/2024 1:[place] [address] Examination: Left hip. Exam time: 1111 hours. Clinical history: Sudden onset pain. No known injury. Comparison: None. Technique: Two views. Findings: No fracture, dislocation or other acute bony abnormality is identified. There are mild degenerative changes manifested by joint space narrowing and acetabular osteophyte formation, not unusual for age. No other significant bone or joint abnormality is noted. Small calcification adjacent to the greater trochanter may reflect old tendinous or ligamentous injury. No acute soft tissue abnormality. Procedure Note Servando Huffman MD - 06/30/2024 [place] [address] Examination: Left hip. Exam time: 1111 hours. Clinical history: Sudden onset pain. No known injury. Comparison: None. Technique: Two views. Findings: No fracture, dislocation or other acute bony abnormality isidentified. There are mild degenerative changes manifested by joint spacenarrowing and acetabular osteophyte formation, not unusual for age. Noother significant bone or joint abnormality is noted. Small calcificationadjacent to the greater trochanter may reflect old tendinous orligamentous injury. No acute soft tissue abnormality. IMPRESSION: No acute findings. Referred By: Interpreted By: Servando Huffman MD, 06/30/2024 1:15 PM Asha Jeremie RN PRODUCTION-BC GENERAL IMAGING Final Result * ECG GENERIC (SCAN ORDER) (06/07/2024) 06/07/2024 [facility] Scanned SCANNING Final Resu lt * BONE DENSITY/DEXA (10/31/2022 9:32 AM CDT) [...] CDT Examination: DEXA Bone densitometry EXAM DATE: 10/31/2022 [...] T-score of 0.1 and a Z-Score of 1.9. Bone density [...] of 0.6 and a Z-Score of 1.8. Bone density [...] a T-score of 0.8 and aZ-Score of 2.0. Bone density is [...] Masters MD, 10/31/2022 12:12 PM Asha Chao RN PRODUCTION-BC DEXA Final Result * COLONOSCOPY GENERIC (09/20/2020) 09/20/2020 Narrative 09/20/2020 Ordered by an unspecified provider. us Documents Scanned SCANNING Final Result from Last 3 Months or Most Recently Relevant to Health Maintenance Insurance MEDICARE [facility] COMM[employer]CIAL [facility] Care Teams Aging Box Hand Relationship Specialty Start Date End Date Moreno Jimenez MD [address] [place] [address] PCP - General FAMILY PRACTICE 10/23/18 Brad Brand MD [address] [place] [address] Consulting Physician INTERVENTIONAL CARDIOLOGY 10/28/18 Jc Browne MD [address] [place], [place] [id number] Consulting Physician RADIATION ONCOLOGY 10/08/23
--- OUTSIDE RECORDS SUMMARY | 2024-08-31 02:01 | XMS_ITS | Encounter Summary ---
Author Organization [facility] Address [address] [place] [id number] Care Team Providers Care Ship Liner Name Role Phone Moreno Jimenez MD Primary Care Provider [phone] Brad Brand MD Unavailable Jc Browne MD Unavailable Encounter Details Date Type Department Care Team (Late Contact Info) Description 06/03/[address] [facility] Conversion [address] [place], [place] [address] , Generic Conversion, Social History Tobacco Use Types Packs/Day Years Used Date Smoking Tobacco: Never Assessed Comments Unknown Sex and Gender Information Value Date Recorded Sex Assigned at Female 03/29/2021 4:02 PM CMO Legal Sex Female 5:01 PM CDT Gender Identity Female 03/29/2021 4:02 PM CMO Sexual Orientation Straight 03/29/2021 4: 02 PM CMO Travel History Travel Start Travel End [facility] 08/12/2024 08/20/2024 documented as of this encounter Plan of Treatment Upcoming Encounters Date Type Department Care Team (Late st Contact Info) Description 02/03/2025 10:00 AM CDT Office Visit [facility] Audiology [address] [place] [address] Kaur Banks AUD [address] [place] [address] documented as of this encounter Visit Diagnoses Not on filedocumented in this encounter Care Teams Ship Liner Relationship Specialty Start Date End Date Moreno Jimenez MD [address] [place] [address] PCP - General FAMILY PRACTICE 10/23/18 Brad Brand MD [address] [place] [address] Consulting Physician INTERVENTIONAL CARDIOLOGY 10/28/18 Jc Browne MD [address] [place], [place] [address] Consulting Physician RADIATION ONCOLOGY 10/08/23 documented as of this encounter
--- OUTSIDE RECORDS SUMMARY | 2024-08-31 02:01 | XMS_ITS | Encounter Summary ---
Author Organization [facility] Address [place] [address] Care Team Providers Care Customer Technical Services Manager Name Role Phone Moreno Jimenez MD Primary Care Provider [phone] Brad Brand MD Unavailable [phone] Jc Browne MD Unavailable Encounter Details Date Type Department Care Team (Latest Contact Info) Description 08/25/2024 Scan HEALTH INFO SRVCS Scanned, Doc Med [...] Sex Assigned at Female 03/29/2021 4:02 PM BLACK TOP PAVER OPERATOR Legal Sex Female 5:01 PM CDT Gender Identity Female 03/29/2021 4:02 PM BLACK TOP PAVER OPERATOR Sexual Orientation Straight 03/29/2021 4: 02 PM BLACK TOP PAVER OPERATOR Travel History Travel Start Travel End [place] 08/12/2024 08/20/2024 documented as of this encounter Plan of Treatment Upcoming Encounters Date Type Department Care Team (Late st Contact Info) Description 02/03/2025 10:00 AM CDT Office Visit [facility] Audiology [address] [place] [address] Kaur Banks AUD [address] [place], [place] [id number] documented as of this encounter Visit Diagnoses Not on filedocumented in this encounter Care Teams Customer Technical Services Manager Relationship Specialty Start Date End Date Moreno Jimenez MD [address] [place] [address] PCP - General FAMILY PRACTICE 10/23/18 Brad Brand MD [address] [place] [address] Consulting Physician INTERVENTIONAL CARDIOLOGY 10/28/18 Jc Browne MD [address] [place], [place] [address] Consulting Physician RADIATION ONCOLOGY 10/08/23 documented as of this encounter
--- OUTSIDE RECORDS SUMMARY | 2024-08-31 02:01 | XMS_ITS | Referral Summary ---
Author Organization [facility] [address] Address [address] [place] [phone] Care Team Providers Care Oriental Rug Stretcher Name Role Phone Moreno Jimenez MD Primary Care Provider [phone] Jc Browne MD Unavailable [phone] Mu Barrera DO Unavailable [phone] Encounters Date Type Department Care Team Description 08/28/2024 1:30 PM CDT Office Visit [facility] Orthopedic and Sports Medicine [address] [place] [phone] Sandra Aguero PA Primary osteoarthritis of left hip (Primary Dx); Muscle strain of left gluteal region, initial encounter 08/01/2024 Telephone [facility] Orthopedics and Sports Medicine [address] [facility] [address] [address] Lakeisha No MA from Last 3 Months Allergies No known active allergies Medications mupirocin [...] 1 capsule (12.5 mg total) by mouth gunsmith apprentice before breakfast 3 Active L. acidophilus/Bifi d. [...] on file Legal Sex Female 2:16 PM TARIFF COUNSEL Gender Identity Not on file Sexual Orientation Not on file Last Filed Vital Signs Vital Sign Reading Time Taken Comments Blood Pressure 123/59 08/28/2024 1:35 PM CDT Pulse 63 08/28/2024 1:35 PM CDT Temperature 37.1 C (98.7 F) 12/05/2023 9:55 AM CDT Respiratory Rate 22 12/05/2023 9:55 AM CDT Oxygen Saturation 100% 12/05/2023 9:55 AM CDT Inhaled Oxygen Concentration - - Weight 87.1 kg (192 lb) 08/28/2024 1:35 PM CDT Height 162.6 cm (5' 4 ) 08/28/2024 1:35 PM CDT Body Mass Index 32.96 08/28/2024 1:35 PM CDT Plan of Treatment Not on file Insurance [facility] MEDICARE [employer] MEDICARE SUPPLEMENT [employer] [place] [address] Care Teams Oriental Rug Stretcher Relationship Specialty Start Date End Date Moreno Jimenez MD [address] [place] [address] PCP - General Family Practice 11/05/23 Jc Browne MD [address] [place] [address] Radiation Oncology 11/06/23 Mu Barrera, [address] [place] [phone] Referring Physician Medical Oncology 11/06/23
--- OUTSIDE RECORDS SUMMARY | 2024-08-31 02:01 | XMS_ITS | Clinical Summary ---
Author Organization [facility] Address [address] [place] [address] Phone Care Team Providers Care Triple Valve Mechanic Name Role Phone Moreno Jimenez MD Primary Care Provider [phone] Mu Barrera DO Unavailable [phone] Allergies No known active allergies Medications Nutritional Supplements (JUICE PLUS FIBRE PO) Take by mouth daily. 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 Active lisinopril (PRINIVIL, ZESTRIL) 10 MG Tablet Take 10 mg by mouth daily. 023 Active albuterol 108 (90 Base) MCG/ACT Aerosol Solution INHALE 2 PUFFS INTO THE LUNGS EVERY 6 HOURS NEEDED FOR WHEEZING 023 Active guaiFENesin-co deine (TUSSI-ORGANID IN NR) 100-10 MG/5ML Syrup Take 10 mL by mouth nightly as needed. 023 Active Pseudoephedrin e-guaiFENesin (MUCINEX D PO) Take by mouth as needed. Active other Immunoglobulin Infusion - x1 monthly Active fluorometholon e (FML) 0.1 % Suspension if needed. 024 Active azelastine (ASTELIN) 0.1 % Solution 1 [place] by Nasal route as needed for Rhinitis. 25 mL 08/09/2 024 Active Additional Information Patient not taking.Reported on 08/04/2024 [facility] Natural Products (IMMUNE BOOST PO) Take by mouth. Activ e omeprazole (PriLOSEC) 20 MG CAPSULE DELAYED RELEASE Take 20 mg by mouth daily. 025 Active tamoxifen citrate 20 MG Tablet TAKE 1 TABLET BY MOUTH DAILY 30 Tablet 6 025 Active cetirizine (ZyrTEC) 10 MG Tablet Take 10 mg by mouth. 2024 Discontinued(M ed List Clean Up) tamoxifen citrate 20 MG Tablet Take 1 Tablet by mouth daily 30 Tablet 3 024 2024 Discontinued levoFLOXacin (LEVAQUIN) 500 MG TabletIndicati ons:Prevention of Bacterial Infection Take 1 Tablet by mouth daily for 7 days. 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 06/07/2015 Encounters Date Type Department Care Team Description 08/05/2024 Refill [facility] [address] [phone] Atiya Mejia APRN, SOLAR ENERGY SYSTEM INSTALLER Medication Refill 08/04/2024 8:45 AM CDT Office Visit [facility] [address] [phone] Laura Nieves, REZA, SOLAR ENERGY SYSTEM INSTALLER 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 (HCC) (Primary Dx); History of non-Hodgkin's lymphoma; Hypogammaglobulinem ia (HCC) 08/04/2024 8:30 AM CDT Lab [facility] [address] [phone] Lab, [facility] History of non-Hodgkin's lymphoma; Hypogammaglobulinem ia (HCC) 08/04/2024 Travel 07/22/2024 8:30 AM CDT Clinical Support [facility] [address] [address] Mu Barrera, DO History of non-Hodgkin's lymphoma (Primary Dx); Hypogammaglobulinem ia (HCC) 07/22/2024 Travel 06/24/2024 9:30 AM CDT Office Visit [facility] [address] [address] Michelle Zavala, RANGE TECHNICIAN, SOLAR ENERGY SYSTEM INSTALLER Left leg pain (Primary Dx) 06/24/2024 8:30 AM CDT Clinical Support [facility] [address] [address] History of non-Hodgkin's lymphoma (Primary Dx); Hypogammaglobulinem ia (HCC) 06/24/2024 Telephone [facility] [address] [address] Michelle Zavala, RANGE TECHNICIAN, SOLAR ENERGY SYSTEM INSTALLER 06/24/2024 Travel 06/16/2024 9:00 AM PAYROLL AND BENEFITS MANAGER Lab [facility] [address] [address] Lab, [facility] [place] 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 (HCC); Hypogammaglobulinem ia (HCC); 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) 06/16/2024 Travel from Last 3 Months Immunizations Immunization Administration Dates Next Due DT Vaccine 11/07/2004 Hepatitis A And Hepatitis B Vaccine 07/03/2006,1 ,01/02/2006 Hepatitis A Vaccine,unspecif ied Formulation 07/03/2006,02/06/2006 IMM GLOB HUMAN IV 07/22/2024,,05/06/2024,04/04,02/04/2024,01/07/2024,11/30/2023 ,09/24/2023,08/21/2023,05/24/2023,04/16,03/22/2023,02/22/2023 Influenza Vaccine 01/11/2019,01/12/2017,02/13/20 15 Influenza Vaccine, MDCK,quad rivalent, pres free 01/18/2022,01/12/2017 Influenza Vaccine, Quadrivalent, PF 01/16/2020,1 ,12/31/2015 Influenza Vaccine,unspecifie d Formulation 01/18/2022,01/11/2019,01/12/2017,02/12 Influenza, Injectable, Quadrivalent 01/11/2019 Influenza, Seasonal, Injecta ble, Undefined 01/13/2021,02/07/2014 Influenza, high-dose, trivalent, PF 01/23/2024 MMR Vaccine 12/09/2004,11/07/2004 Pneumococcal Vaccine Adult - 23 Valent 4 Pneumococcal conjugate PCV20 , polysaccharide [id number] conjugate, adjuvant, PF 12/11/2022 RSV, Recombinant, Protein Alaniz bunit Rsvpref, Adjuvant Recon (Arexvy) 01/09/2024 TD VACCINE 11/07/2004 TDAP Vaccine 11/11/2009 Typhoid, Parenteral, AKD ([place] ) 11/11/2009,01/02/2006 Yellow Fever Vaccine 11/11/2009 Zoster Vaccine Recombinant 03/19/2021,01/13/2021 Social History Tobacco Use Types Packs/Day Years Used Date Smoking Tobacco: Never Passive Smoke Exposure: Never Smokeless Tobacco: Never Tobacco Cessation:Counseling Given: Not Answered Alcohol Use Standard Drinks/Week Comments Yes 0 [...] Sign Reading Time Taken Comments Blood Pressure 138/74 08/04/2024 8:38 AM CDT Pulse 63 08/04/2024 8:38 AM CDT Temperature 36.5 C (97.7 F) 08/04/2024 8:38 AM CDT Respiratory Rate 18 08/04/2024 8:38 AM CDT Oxygen Saturation 98% 08/04/2024 8:38 AM CDT Inhaled Oxygen Concentration - - Weight 84.6 kg (186 lb 8 oz) 08/04/2024 8:38 AM CDT Height 162.6 cm (5' 4 ) 08/04/2024 8:38 AM CDT Body Mass Index 32.01 08/04/2024 8:38 AM CDT Plan of Treatment Upcoming Encounters Date Type Department Care Team (Late st Contact Info) Description 11/03/2024 8:30 AM CDT Lab [facility] [address] [phone] Lab, [facility] 11/03/2024 8:45 AM CDT Office Visit [facility] [address] [phone] Patrick Reed MD [address] [place] [phone] Health Maintenance Due Date Last Done Comments Hepatitis C Virus (HCV) Screening 1960 Colonoscopy 2003 Immunochemical Fecal Occult Blood 02/27/2008 Colorectal Cancer Screening 08/24/2020 Cologuard 08/24/2023 08/23/2020 SARS-COV-2 Immunization (7 - Moderna risk season) 2024 12/19/2023, 02/03/2022, 08/30/2021, Additional history exists Mammogram Unilateral 09/18/2024 09/19/2023, 09/19/2023, 08/27/2023, Additional history exists DEXA Bone Density 10/31/2024 10/31/2022 Hepatitis B Immunization Completed 007, 02/06/2006, 01/02/2006 DTaP/Tdap/Td Immunization Discontinued 2009, 11/07/2004, 11/07/2004 Cervical Cancer Screening (CCS) Discontinued Pap Smear Discontinued 08/14/2018 Zoster Immunization Completed 03/19/2021, Pneumococcal Immunization (50+ years) Completed 12/11/2022, 02/23/2014 Pneumococcal Immunization Combined Discontinued 12/11/2022, 02/23/2014 Mammogram Discontinued 09/19/2023, 08/14, 08/16/2023, Additional history exists Respiratory Syncytial Virus (RSV) Immunization (Adult) Completed 01/09/2024 Influenza Immunization Completed 4, 01/18/2022, 01/18/2022, Additional history exists HPV/Cotest Discontinued Human Papillomavirus (HPV) Immunization Aged Out No longer eligible based on patient's age to complete this topic Meningococcal Immunization (ACWY) Aged Out No longer eligible based on patient's age to complete this topic Rotavirus Immunization Aged Out No lo nger eligible based on patient's age to complete this topic Procedures Procedure Name Priority Date/Time Associated Diagnosis Comments CBC WITH AUTO DIFF OH Routine 08/04/2024 8:26 AM CDT CMP (COMPREHENSIVE METABOLIC PANEL) Routine 08/04/2024 8:26 AM CDT History of non-Hodgkin's lymphoma Hypogammaglobuline julius (HCC) IMMUNOGLOBULIN IGA, IGG & IGM QUANT Routine 08/04/2024 8:26 AM CDT History of non-Hodgkin's lymphoma Hypogammaglobuline julius (HCC) CBC WITH AUTO DIFF OH Routine 06/16/2024 9:08 AM PAYROLL AND BENEFITS MANAGER CMP (COMPREHENSIVE METABOLIC PANEL) Routine 06/16/2024 9:08 AM PAYROLL AND BENEFITS MANAGER 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 (HCC) Hypogammaglobuline julius (HCC) 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) IMMUNOFIXATION, SERUM OH Routine 06/16/2024 9:08 AM PAYROLL AND BENEFITS MANAGER 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 (HCC) Hypogammaglobuline julius (HCC) 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 WBC 3.7(L) 4.0 - 10.0 10*3/uL [facility] HGB 13.0 11.2 - 15.7 g/dL [facility] HCT 41.2 34.1 - 44.9 % [facility] PLT 162(L) 163 - 369 10*3/uL [facility] MPV 12.7(H) 9.4 - 12.4 fL [facility] RBC 4.79 3.93 - 5.22 10*6/uL [facility] MCV 86 79 - 95 fL [facility] MCH 27.1 25.6 - 32.2 pg [facility] MCHC 31.6(L) 32.2 - 36.5 g/dL [facility] RDW 13.0 11.6 - 14.4 % [facility] Neutrophils % 63.3 36.0 - 66.0 % [facility] Lymphocytes % 24.4 19.0 - 40.0 % [facility] Monocytes % 6.3 4.1 - 12.1 % [facility] Eosinophils % 5.2(H) 0.0 - 3.5 % [facility] Basophils % 0.5 0.0 - 1.0 % [facility] Absolute Neutrophils 2.3 1.4 - 6.6 10*3/uL [facility] Absolute Lymphocytes 0.9 0.8 - 4.0 10*3/uL [facility] Absolute Monocytes 0.2 0.2 - 1.2 10*3/uL [facility] Absolute Eosinophils 0.2 0.0 - 0.4 10*3/uL [facility] Absolute Basophils 0.0 0.0 - 0.1 10*3/uL [facility] 08/04/2024 8:26 AM CDT us Mu Barrera DO LAB SEND OUTS Final Result Performing Organization Address [facility]/ZIP Co de Phone Number [facility] Care [address] [address], [place] [phone] * (ABNORMAL) IMMUNOGLOBULIN IGA, IGG & IGM QUANT (08/04/2024 8:26 AM CDT) Only the most recent of2 resultswithin the time period is included. IGG 978 635 - 1,741 mg/dL [facility] IGA <10(L) 66 - 433 mg/dL [facility] IGM <20(L) 45 - 281 mg/dL [facility] Blood 08/04/2024 8:26 AM CDT Narrative [facility] - 08/04/2024 2:34 PM CDT Release to patient->Immediate us Mu Barrera DO CHEMISTRY ORDERABLES Final Res ult Performing Organization Address [facility] Co de Phone Number [facility] Cancer Care [address] [address], [place] [phone] * (ABNORMAL) CMP (COMPREHENSIVE METABOLIC PANEL) (08/04/2024 8:26 AM CDT) Only the most recent of2 resultswithin the time period is included. Glucose 97 70 - 105 mg/dL [facility] Blood Urea Nitrogen 15 7 - 25 mg/dL [facility] Creatinine 0.7 0.6 - 1.2 mg/dL [facility] Sodium 146(H) 136 - 145 mEq/L [facility] Potassium 4.0 3.5 - 5.1 mEq/L [facility] Chloride 109(H) 98 - 107 mEq/L [facility] Bicarbonate 27 21 - 31 mEq/L [facility] Total Bilirubin 0.3 0.3 - 1.0 mg/dL [facility] Alk. Phosphatase 47 34 - 104 U/L [facility] Aspartate Aminotransferase 20 13 - 39 U/L [facility] Alanine Aminotransferase 19 7 - 52 U/L [facility] Total Protein 6.5 6.4 - 8.9 g/dL [facility] Albumin 4.4 3.5 - 5.7 g/dL [facility] Calcium 9.6 8.6 - 10.3 mg/dL [facility] Anion Gap 14.0 7.0 - 15.0 mEq/L [facility] Globulin 2.1 2.0 - 3.5 g/dL [facility] EGFR 95 >60 ml/min/1. 73m2 [facility] Comment: This eGFR is calculated using 2020 CKD-EPI Creatinine equation without race modifier based on the NKF-ASN task force recommendations Equation: jBLW=591*min(SCr/k,1)a*max(SCr/k,1)-1.200*0.9938Age*1.012 (if female), where SCr is serum creatinine, k is 0.7 for females and 0.9 for males, and a is -0.241 for females and -0.302 for males Blood 08/04/2024 8:26 AM CDT Narrative [facility] - 08/04/2024 9:32 AM CDT Release to patient->Immediate IS THE PATIENT REQUIRED TO BE FASTING FOR 8 HOURS?->No us Mu Barrera DO CHEMISTRY ORDERABLES Final Res ult [facility] [place] [address], * IMMUNOFIXATION, SERUM [place] (06/16/2024 9:08 AM PAYROLL AND BENEFITS MANAGER) IMMUNOFIXATION RESULT, SERUM COMMENT [facility] Comment:NO MONOCLONALITY DET ECTED. 06/16/2024 9:08 AM PAYROLL AND BENEFITS MANAGER Narrative [facility] - 06/20/2024 3:08 PM PAYROLL AND BENEFITS MANAGER TESTING PERFORMED AT: [] [facility], [address] [place] [address], [place], [address], PHONE: [phone], FAN BLADE ALIGNER: REJI CARPENTER, PHD Release to patient->Immediate us Mu Barrera DO LAB SEND OUTS Final Result [facility] [address] [place] [address], * COLOGUARD (08/23/2020) us Michoacano Aponte III, MD BODY FLUIDS & STOOLS ORDERA BLES Final Result * STEPHEN SCREENING CHAR W IMPL DIGITAL W CAD (06/04/2020) Anatomical Region Laterality Modality breast Bilateral Mammography us Not On File Provider IMG MAMMO ORDERABLES Final Result from Last 3 Months or Most Recently Relevant to Health Maintenance Insurance MEDICARE [facility] Care Teams Triple Valve Mechanic Relationship Specialty Start Date End Date Moreno Jimenez MD [address] [place] [address] PCP - General Family Medicine 12/13/18 Mu Barrera DO [address] [place] [phone] Consulting Physician Oncology 12/05/23
--- OUTSIDE RECORDS SUMMARY | 2024-08-31 02:01 | XMS_ITS | Clinical Summary ---
Author Organization [place] [address] [place] Address [address] [place] [address] Care Team Providers Care Senior Clerk Name Role Phone Moreno Jimenez MD Primary Care Provider [phone] Jc Browne MD Unavailable [phone] Mu Barrera DO Unavailable [phone] Allergies No known active allergies Medications mupirocin [...] 1 capsule (12.5 mg total) by mouth ski tow operator before breakfast 3 Active L. acidophilus/Bifi d. [...] Description 08/28/2024 1:30 PM CDT Office Visit [facility] Orthopedic and Sports Medicine [address] [place] [phone] Sandra Aguero PA Primary osteoarthritis of left hip (Primary Dx); Muscle strain of left gluteal region, initial encounter 08/01/[address] [facility] Orthopedics and Sports Medicine [address] [facility] [address] [place] [phone] Lakeisha No MA from Last 3 Months Surgical History Surgery Date Site/Laterality Comments APPENDECTOMY 04/16/2016 - 04/15/2017 HYSTERECTOMY partial SECTION 04/16/1986 - 04/15/1987 BREAST SURGERY 04/16/2003 - 04/15/2004 biopsy LYMPH NODE BIOPSY 04/16/2005 - 04/15/2006 groin--to diagnose lymphoma Medical History Medical History Date Comments Hypertension Cancer (HCC) lymphoma 2012 ( in remission); Right breast 2023 Hypogammaglobulinemia requiring IVGG infusions PONV (postoperative nausea and vomiting) [...] on file Legal Sex Female 2:16 PM PROGRAMMING EQUIPMENT OPERATOR Gender Identity Not on file Sexual Orientation [...] 08/28/2024 1:35 PM CDT Plan of Treatment Health Maintenance Due Date Last Done Comments Colon Cancer Screening-Colonoscopy 1960 Depression Screening 1960 Fall Risk Assessment 1960 Hepatitis C Screening 1960 Pneumococcal vaccine 65+ (2 of 2 - PCV) 02/23/2015 02/23/2014 DTaP/Tdap/Td Vaccine (3 - Td or Tdap) 11/12/2019 11/11/2009, 11/07/2004, 11/07/2004 Well Visit 65+ 2023 Covid-19 Vaccine (4 - 2023-2 5 season) 2023 02/18/2021, 07/14/2020, 06/16/2020 Osteoporosis Screening-Bone Density Scan 10/31/2024 10/31/2022 Breast Cancer Screening-Mammogram 08/26/2025 08/26/2024, 08/26/2024, 08/16/2023, Additional history exists Hepatitis B Screening Completed 07/03/2006 , 02/06/2006, 01/02/2006 Zoster Vaccine Completed 03/19/2021, 01/13/2021 Influenza Vaccine Completed 01/23/2024, , 01/13/2021, Additional history exists Insurance [id number] MEDICARE [facility] MEDICARE SUPPLEMENT CLAIMS OFFICE MEDICARE Care Teams Senior Clerk Relationship Specialty Start Date End Date Moreno Jimenez MD [address] [place] [address] PCP - General Family Practice 11/05/23 Jc Browne MD [address] [place] [address] Radiation Oncology 11/06/23 Mu Barrera, [address] [place] [phone] Referring Physician Medical Oncology 11/06/23
--- OUTSIDE RECORDS SUMMARY | 2024-08-31 02:01 | XMS_ITS | Encounter Summary ---
Author Organization [facility] Address [facility] [place] [address] Care Team Providers Care Director Environmental Name Role Phone Moreno Jimenez MD Primary Care Provider [phone] Brad Brand MD Unavailable [phone] Jc Browne MD Unavailable Encounter Details Date Type Department Care Team (Late Contact Info) Description 01/25/[address] Message Enc [facility] [address] [place] [address] [facility] Provider 01/29 Appointment Social History Tobacco [...] Sex Assigned at Female 03/29/2021 4:02 PM IN SERVICE EDUCATOR Legal Sex Female 5:01 PM CDT Gender Identity Female 03/29/2021 4:02 PM IN SERVICE EDUCATOR Sexual Orientation Straight 03/29/2021 4: 02 PM IN SERVICE EDUCATOR Travel History Travel Start Travel End [facility] 08/12/2024 08/20/2024 documented as of this encounter Plan of Treatment Upcoming Encounters Date Type Department Care Team (Late Contact Info) Description 02/03/2025 10:00 AM CDT Office Visit [facility] Audiology [address] [place] [address] Kaur Banks, [place] [address] [place] [address] documented as of this encounter Visit Diagnoses Not on filedocumented in this encounter Care Teams Director Environmental Relationship Specialty Start Date End Date Moreno Jimenez MD [address] [place] [address] PCP - General FAMILY PRACTICE 10/23/18 Brad Brand MD [address] [place] [address] Consulting Physician INTERVENTIONAL CARDIOLOGY 10/28/18 Jc Browne MD [address] [place], [place] [address] Consulting Physician RADIATION ONCOLOGY 10/08/23 documented as of this encounter
--- OUTSIDE RECORDS SUMMARY | 2024-08-31 02:01 | XMS_ITS | Encounter Summary ---
Author Organization [facility] Address [address] [place] [address] Care Team Providers Care Senior Physical Therapist Name Role Phone Moreno Jimenez MD Primary Care Provider [phone] Brad Brand MD Unavailable [phone] Jc Browne MD Unavailable Encounter Details Date Type Department Care Team (Latest Contact Info) Description 09/21/2021 [facility] Message Enc [facility] Medical Group Multispecialty Care [facility] [address], [address] [place] [address] [facility] Provider Please call to schedule your annual [...] Sex Assigned at Female 03/29/2021 4:02 PM CREDIT VERIFICATION CLERK Legal Sex Female 5:01 PM CDT Gender Identity Female 03/29/2021 4:02 PM CREDIT VERIFICATION CLERK Sexual Orientation Straight 03/29/2021 4: 02 PM CREDIT VERIFICATION CLERK Travel History Travel Start Travel End [place] 08/12/2024 08/20/2024 documented as of this encounter Plan of Treatment Upcoming Encounters Date Type Department Care Team (Late st Contact Info) Description 02/03/2025 10:00 AM CDT Office Visit [facility] Audiology [address] [place] [address] Kaur BanksXAVIER [address] [place] [address] documented as of this encounter Visit Diagnoses Not on filedocumented in this encounter Care Teams Senior Physical Therapist Relationship Specialty Start Date End Date Moreno Jimenez MD [address] [place] [address] PCP - General FAMILY PRACTICE 10/23/18 Brad Brand MD [address] [place] [address] Consulting Physician INTERVENTIONAL CARDIOLOGY 10/28/18 Jc Browne MD [address] [place] [address] Consulting Physician RADIATION ONCOLOGY 10/08/23 documented as of this encounter
--- OUTSIDE RECORDS SUMMARY | 2024-08-31 02:01 | XMS_ITS | Encounter Summary ---
Author Organization [facility] Address [address] [place] [address] Care Team Providers Care Embedded Firmware Developer Name Role Phone Moreno Jimenez MD Primary Care Provider [phone] Brad Brand MD Unavailable Jc Browne MD Unavailable Encounter Details Date Type Department Care Team (Late Contact Info) Description 02/23/2023 [place] Message Enc [facility] Medical Group Family [facility]-[place] [address] [place] [address] Moreno Jimenez MD [address] [place] [address] Scan Results from Cancer [...] Sex Assigned at Female 03/29/2021 4:02 PM STITCH RUBBER Legal Sex Female 5:01 PM CDT Gender Identity Female 03/29/2021 4:02 PM STITCH RUBBER Sexual Orientation Straight 03/29/2021 4: 02 PM STITCH RUBBER Travel History Travel Start Travel End [facility] 08/12/2024 08/20/2024 documented as of this encounter Plan of Treatment Upcoming Encounters Date Type Department Care Team (Late st Contact Info) Description 02/03/2025 10:00 AM CDT Office Visit [facility] Audiology [address] [place] [address] Kaur Banks XAVIER [address] [place] [address] documented as of this encounter Visit Diagnoses Not on filedocumented in this encounter Care Teams Embedded Firmware Developer Relationship Specialty Start Date End Date Moreno Jimenez MD [address] [place] [address] PCP - General FAMILY PRACTICE 10/23/18 Brad Brand MD [address] [place] [address] Consulting Physician INTERVENTIONAL CARDIOLOGY 10/28/18 Jc Browne MD 1 [place] [address] Consulting Physician RADIATION ONCOLOGY 10/08/23 documented as of this encounter
--- OUTSIDE RECORDS SUMMARY | 2024-08-31 02:01 | XMS_ITS | Encounter Summary ---
Author Organization [facility] Address [address] [place] [address] Care Team Providers Care Soliciting Freight Agent Name Role Phone Moreno Jimenez MD Primary Care Provider [phone] Brad Brand MD Unavailable [phone] Jc Browne MD Unavailable Encounter Details Date Type Department Care Team (Late Contact Info) Description 03/28/2024 [employer] Message Enc [facility] Medical Group Family Medicine-[place] [address] [place] [address] [facility] Provider Appointment Needed Social History Tobacco Use [...] Sex Assigned at Female 03/29/2021 4:02 PM DIVISION SUPERINTENDENT Legal Sex Female 5:01 PM CDT Gender Identity Female 03/29/2021 4:02 PM DIVISION SUPERINTENDENT Sexual Orientation Straight 03/29/2021 4: 02 PM DIVISION SUPERINTENDENT Travel History Travel Start Travel End [place] 08/12/2024 08/20/2024 documented as of this encounter Plan of Treatment Upcoming Encounters Date Type Department Care Team (Late Contact Info) Description 02/03/2025 10:00 AM CDT Office Visit [facility] Audiology [address] [place] [address] Kaur Banks, AUD [address] [place] [address] documented as of this encounter Visit Diagnoses Not on filedocumented in this encounter Care Teams Soliciting Freight Agent Relationship Specialty Start Date End Date Moreno Jimenez MD [address] [place] [address] PCP - General FAMILY PRACTICE 10/23/18 Brad Brand MD [address] [place] [address] Consulting Physician INTERVENTIONAL CARDIOLOGY 10/28/18 Jc Browne MD 1 [place] [address] Consulting Physician RADIATION ONCOLOGY 10/08/23 documented as of this encounter
--- OUTSIDE RECORDS SUMMARY | 2024-08-31 02:01 | XMS_ITS | Clinical Summary ---
Author Organization [facility] Gerry Zavala Address [address] [address] Care Team Providers Care Car Wrecker Name Role Phone Unavailable Primary Care Provider Unavailabl e Encounters Date Type Department Care Team Description 07/02/2024 External Device Data [facility] Provider, Abstract 06/24/2024 External Device Data [facility] Provider, Abstract 06/24/2024 External Device Data [facility] Provider, Abstract 06/21/2024 External Device Data [facility] Provider, Abstract 06/20/2024 External Device Data [facility] Provider, Abstract 06/18/2024 External Device Data [facility] Provider, Abstract 06/18/2024 External Device Data [facility] Provider, Abstract 06/03/2024 External Device Data [facility] Provider, Abstract from Last 3 Months Social History Tobacco Use Types Packs/Day Years Used Date Smoking Tobacco: Never Assessed Comments Unknown Sex and Gender Information Value Date Recorded Sex Assigned at Not on file Legal Sex Female 8:47 AM AMMUNITION ASSEMBLY II LABORER Gender Identity Not on file Sexual Orientation Not on file Plan of Treatment Health Maintenance Due Date Last Done Comments FIT-DNA Q 3 years 2003 FIT/FOBT Q 1 year 2003 Flex Sig/CT Colonography Q 5 years 2003 RSV VACCINE (60+ or ) (1 - Risk 60-74 years 1-dose series) 2018 DTAP/TDAP/TD VACCINES (3 - T d or Tdap) 11/12/2019 11/11/2009, 11/07/2004 INFLUENZA VACCINE (#1) 2023 2, 01/16/2020, 01/11/2019, Additional history exists BREAST CANCER SCREENING 08/26/2024 08/27/19 24, 08/27/2023, 08/16/2023, Additional history exists OSTEOPOROSIS SCREENING 11/01/2027 10/31/2022, 2022 COLORECTAL SCREENING 09/20/2030 09/20/2020 Colorectal Cancer Screening 09/20/2030 ZOSTER VACCINE Completed 03/19/2021, 01/13/2021 PNEUMOCOCCAL VACCINE 50+ YEARS Completed 12/11/2022 , 02/23/2014
[2024-08-31 02:34] VITALS: BP 131/66; PULSE 65; RESP 17; TEMP 37.1; O2SAT 98
[2024-08-31] MEDS: DOXYCYCLINE HYCLATE 100 MG TABLET 200 MG PO (02:53)
--- NOTE | 2024-08-31 02:56 | ED_ITS ---
HPI - Animal Bite General Chief Complaint: Animal Bite Stated Complaint: tick on back Time Seen by Provider: 08/31/24 02:20 History of Present Illness HPI narrative: Patient noticed some itching and irritation to her left upper back, took a picture of it and noticed that it was a tick. Related Data Home Medications Medication Instructions Recorded Confirmed Last Taken Type lisinopril 20 mg tablet 10 mg PO DAILY 03/31/24 05/26/24 Unknown History multivitamin 1 tablet PO DAILY 03/31/24 05/26/24 Unknown History tamoxifen 10 mg tablet 20 mg PO DAILY 03/31/24 05/26/24 Unknown History Allergies Allergy/AdvReac Type Severity Reaction Status Date / Time No Known Allergies Allergy Verified 08/31/24 02:35 Review of Systems Review of Systems: All systems reviewed & are unremarkable except as noted in HPI and below PMFSH Past Medical History Medical History (Updated 08/31/24 @ 02:39 by Susie Sandhu MD) IBS (irritable bowel syndrome) Nausea FH: mastectomy Hodgkin lymphoma Hypogammaglobulinemia History of breast cancer Fecal incontinence Surgical History Surgical History H/O lumpectomy Social History Social History Smoking status: Never smoker Exam Narrative: EXAMINATION OF ORGAN SYSTEMS/BODY AREAS: Constitutional: Vital signs per nursing GENERAL:[No acute distress, non-toxic appearing.] HEAD: Normal with no signs of head trauma. EYES: EOMI, conjunctiva normal ENT: Hearing grossly intact LUNGS: Nonlabored breathing. HEART: [Regular rate and rhythm] ABD: [Soft], [nontender to palpation] EXT: Normal range of motion SKIN: Tick embedded L upper back NEURO: [Alert and oriented x 3. No gross focal sensory or strength deficits.] PSYCH: Normal affect Course Vital Signs Vital signs: Vital Signs Temperature 98.7 F 08/31/24 02:34 Pulse Rate 65 08/31/24 02:34 Respiratory Rate 17 08/31/24 02:34 Blood Pressure 131/66 08/31/24 02:34 Pulse Oximetry 98 08/31/24 02:34 Temperature 98.7 F 08/31/24 02:34 Pulse Rate 65 08/31/24 02:34 Respiratory Rate 17 08/31/24 02:34 Blood Pressure 131/66 08/31/24 02:34 Pulse Oximetry 98 08/31/24 02:34 Procedures Foreign Body Removal Foreign Body #1: Foreign Body Removal Date: 08/31/24 Site: other Description of foreign body: insect Technique: removal with forceps Confirmed by:: direct visualization Complications: none Post-procedure exam: awake, alert Foreign Body Removal Narrative: A tick removed with alcohol swab and gentle constant pressure with forceps; entire tick removed intact MDM - Animal Bite MDM Narrative Medical decision making narrative: Patient presents here with concern for tick on her upper back, unsure how long it has been there for. Verbal consent given for removal and removed intact, will give prophylaxis for Lyme with 1 dose doxycycline, follow-up to PCP with return precautions Discharge Plan Discharge Clinical Impression: Tick bite of back Patient Disposition: Home Condition: Stable Instructions: Antibiotic Form, Tick Bite (ED) Additional Instructions: Please follow up with your doctor; you can always return for any further issues. Patient Language: Anguill[place] Prescriptions: No Action multivitamin Tablet 1 tablet PO DAILY lisinopril 20 mg tablet 10 mg PO DAILY tamoxifen 10 mg tablet 20 mg PO DAILY omeprazole 20 mg capsule,delayed release(DR/EC) 20 mg PO DAILY 30 Days Qty: 30 5RF Follow-up/Referrals: PHYSICIAN NOT ON STAFF,NONSTAFF [Primary Care Provider] -
--- OUTSIDE RECORDS SUMMARY | 2024-08-31 03:22 | XMS_ITS | Encounter Summary ---
Author Organization [facility] Address [address] [place] [address] Care Team Providers Care Liner Reroll Tender Name Role Phone Moreno Jimenez MD Primary Care Provider [phone] Brad Brand MD Unavailable [phone] Jc Browne MD Unavailable Encounter Details Date Type Department Care Team (Late Contact Info) Description 03/28/2024 [employer] Message Enc [facility] Medical Group Family Medicine-[place] [address] [place] [address] [facility] Provider Appointment Needed Social History Tobacco [...] Sex Assigned at Female 03/29/2021 4:02 PM CERTIFIED TUMOR REGISTRAR Legal Sex Female 5:01 PM CDT Gender Identity Female 03/29/2021 4:02 PM CERTIFIED TUMOR REGISTRAR Sexual Orientation Straight 03/29/2021 4: 02 PM CERTIFIED TUMOR REGISTRAR Travel History Travel Start Travel End [place] 08/12/2024 08/20/2024 documented as of this encounter Plan of Treatment Upcoming Encounters Date Type Department Care Team (Late Contact Info) Description 02/03/2025 10:00 AM CDT Office Visit [facility] Audiology [address] [place] [address] Kaur Banks, AUD [address] [place] [address] documented as of this encounter Visit Diagnoses Not on filedocumented in this encounter Care Teams Liner Reroll Tender Relationship Specialty Start Date End Date Moreno Jimenez MD [address] [place] [address] PCP - General FAMILY PRACTICE 10/23/18 Brad Brand MD [address] [place] [address] Consulting Physician INTERVENTIONAL CARDIOLOGY 10/28/18 Jc Browne MD 1 [place] [address] Consulting Physician RADIATION ONCOLOGY 10/08/23 documented as of this encounter
--- OUTSIDE RECORDS SUMMARY | 2024-08-31 03:22 | XMS_ITS | Encounter Summary ---
Author Organization [facility] Address [address] [place] [address] Care Team Providers Care Solar Energy Sales Specialist Name Role Phone Moreno Jimenez MD Primary Care Provider [phone] Brad Brand MD Unavailable [phone] Jc Browne MD Unavailable Encounter Details Date Type Department Care Team (Late Contact Info) Description 03/09/[address] [facility] Con[facility] [address] [place], [place] [address] , Generic Conversion, Social History Tobacco Use Types Packs/Day Years Used Date Smoking Tobacco: Never Assessed Comments Unknown Sex and Gender Information Value Date Recorded Sex Assigned at Female 03/29/2021 4:02 PM BEAUTY ADVISOR Legal Sex Female 5:01 PM CDT Gender Identity Female 03/29/2021 4:02 PM BEAUTY ADVISOR Sexual Orientation Straight 03/29/2021 4: 02 PM BEAUTY ADVISOR Travel History Travel Start Travel End [facility] 08/12/2024 08/20/2024 documented as of this encounter Plan of Treatment Upcoming Encounters Date Type Department Care Team (Late st Contact Info) Description 02/03/2025 10:00 AM CDT Office Visit [facility] Audiology [address] [place] [address] Kaur Banks AUD [address] [place] [address] documented as of this encounter Visit Diagnoses Not on filedocumented in this encounter Care Teams Solar Energy Sales Specialist Relationship Specialty Start Date End Date Moreno Jimenez MD [address] [place] [address] PCP - General FAMILY PRACTICE 10/23/18 Brad Brand MD [address] [place] [address] Consulting Physician INTERVENTIONAL CARDIOLOGY 10/28/18 Jc Browne MD [address] [place], [place] [address] Consulting Physician RADIATION ONCOLOGY 10/08/23 documented as of this encounter
--- OUTSIDE RECORDS SUMMARY | 2024-08-31 03:22 | XMS_ITS | Encounter Summary ---
Author Organization [facility] Address [address] [place] [address] Care Team Providers Care Portable Canteen Operator Name Role Phone Moreno Jimenez MD Primary Care Provider [phone] Brad Brand MD Unavailable [phone] Jc Browne MD Unavailable Encounter Details Date Type Department Care Team (Late Contact Info) Description 06/03/[address] [facility] Conversion [address] [place], [place] [address] , Generic Conversion, Social History Tobacco Use Types Packs/Day Years Used Date Smoking Tobacco: Never Assessed Comments Unknown Sex and Gender Information Value Date Recorded Sex Assigned at Female 03/29/2021 4:02 PM DIRECTOR OF FIELD SERVICE Legal Sex Female 5:01 PM CDT Gender Identity Female 03/29/2021 4:02 PM DIRECTOR OF FIELD SERVICE Sexual Orientation Straight 03/29/2021 4: 02 PM DIRECTOR OF FIELD SERVICE Travel History Travel Start Travel End [facility] 08/12/2024 08/20/2024 documented as of this encounter Plan of Treatment Upcoming Encounters Date Type Department Care Team (Late st Contact Info) Description 02/03/2025 10:00 AM CDT Office Visit [facility] Audiology [address] [place] [address] Kaur Banks AUD [address] [place] [address] documented as of this encounter Visit Diagnoses Not on filedocumented in this encounter Care Teams Portable Canteen Operator Relationship Specialty Start Date End Date Moreno Jimenez MD [address] [place] [address] PCP - General FAMILY PRACTICE 10/23/18 Brad Brand MD [address] [place] [address] Consulting Physician INTERVENTIONAL CARDIOLOGY 10/28/18 Jc Browne MD [address] [place], [place] [address] Consulting Physician RADIATION ONCOLOGY 10/08/23 documented as of this encounter
--- OUTSIDE RECORDS SUMMARY | 2024-08-31 03:22 | XMS_ITS | Clinical Summary ---
Author Organization [facility] Gerry Zavala Address [address] [address] Care Team Providers Care Pre Algebra Teacher Name Role Phone Unavailable Primary Care Provider [...] on file Legal Sex Female 8:47 AM RADIATION ONCOLOGY THERAPIST Gender Identity Not on file Sexual Orientation [...]
--- OUTSIDE RECORDS SUMMARY | 2024-08-31 03:22 | XMS_ITS | Encounter Summary ---
Author Organization [facility] Address [facility]ly [facility] [place] [address] Care Team Providers Care Nurses Aide Name Role Phone Moreno Jimenez MD Primary Care Provider [phone] Brad Brand MD Unavailable [phone] Jc Browne MD Unavailable Encounter Details [...] Sex Assigned at Female 03/29/2021 4:02 PM COAL OR ORE CONTROLLER Legal Sex Female 5:01 PM CDT Gender Identity Female 03/29/2021 4:02 PM COAL OR ORE CONTROLLER Sexual Orientation Straight 03/29/2021 4: 02 PM COAL OR ORE CONTROLLER Travel History Travel Start Travel End [place] 08/12/2024 08/20/2024 documented as of this encounter Plan of Treatment Upcoming Encounters Date Type Department Care Team (Late st Contact Info) Description 02/03/2025 10:00 AM CDT Office Visit [facility] Audiology [address] [place] [address] Kaur Banks AUD [address] [place], [place] [id number] documented as of this encounter Visit Diagnoses Not on filedocumented in this encounter Care Teams Nurses Aide Relationship Specialty Start Date End Date Moreno Jimenez MD [address] [place] [address] PCP - General FAMILY PRACTICE 10/23/18 Brad Brand MD [address] [place] [address] Consulting Physician INTERVENTIONAL CARDIOLOGY 10/28/18 Jc Browne MD 1 [place], [place] [address] Consulting Physician RADIATION ONCOLOGY 10/08/23 documented as of this encounter
--- OUTSIDE RECORDS SUMMARY | 2024-08-31 03:22 | XMS_ITS | Clinical Summary ---
Author Organization [facility] Address [address] [place] [address] Care Team Providers Care Environmental Protection Specialist Name Role Phone Moreno Jimenez MD Primary Care Provider [phone] Brad Brand MD Unavailable [phone] Jc Browne MD Unavailable Allergies No [...] lymphoma of lymph nodes of multiple regions ([facility] 06/07/2015 Encounters Date Type Department Care Team Description 08/26/2024 12:00 PM CDT - 08/26/2024 11:59 PM CDT Hospital Encounter [facility] Mammography [address] [place] [address] Luz Bacon MD Discharge Disposition: Home or Self Care (Routine Discharge) 08/26/2024 Travel 08/25/2024 Scan [facility] SRV[facility] Scanned, [facility] 08/05/2024 9:00 AM CDT Office Visit [facility] Audiology [address] [place] [address] Kaur Banks AUD Hearing Aid Check; Hearing Aid Purchase Date 08/05/2024 Travel 08/04/2024 Scan [facility] SRVCS Scanned, [facility] 07/30/2024 Scan [facility] Scanned, [facility] 07/28/2024 Scan [facility] SRVCS Scanned, [facility] 07/21/2024 2:30 PM CDT Office Visit [facility] Audiology [address] [place] [address] Kaur Banks AUD Hearing Aid Check 07/21/2024 Travel 07/21/2024 Orders Only [facility] Family MedicineLuz [address] [address] Asha Chao FNP-BC 07/18/2024 Telephone [facility] Family Fauzia [address] [place] [address] Asha Chao FNP-BC Request (Referral) 07/09/2024 3:54 PM CDT - 07/09/2024 11:59 PM CDT Hospital Encounter [facility] [address] [place] [address] Chao, Asha, TRADESHOW WORKER-BC Discharge Disposition: Home or Self Care (Routine Discharge) 07/09/2024 Travel 07/07/2024 1:00 PM CDT Office Visit [facility] Audiology [address] [facility] [address] Kaur Banks AUD Hearing Aid Fit 07/07/2024 Travel 07/03/2024 8:29 AM CDT - 07/03/2024 11:59 PM CDT Hospital Encounter [facility] - Laboratory [address] [address] Asha Chao FNP-JERI Discharge Disposition: Home or Self Care (Routine Discharge) 07/03/2024 Orders Only [facility] Family Medicine-Kendy [address] [place] [address] Asha Chao FNP-JERI 07/03/2024 Telephone [facility] Family MedicineLuz [address] [place] [address] Asha Chao FNP-JERI FYI 07/03/2024 Travel 07/02/2024 Orders Only [facility] Family MedicineLuz [address] [place] [address] Asha Chao FNP-JERI 07/01/2024 Telephone [facility] [address] [address] Asha Chao FNP-JERI Information 06/30/2024 11:10 AM CDT - 06/30/2024 11:59 PM CDT Hospital Encounter [facility] - Diagnostic Imaging [address] [address] Asha Chao FNP-JERI Discharge Disposition: Home or Self Care (Routine Discharge) 06/30/2024 10:20 AM CDT Office Visit [facility] MedicineLuz [address] [place] [address] Asha Chao FNP-JERI Hip Pain (Svitlana is [...] Travel 06/25/2024 11:00 AM CDT Office Visit [facility] Audiology [address] [place] [address] Kaur Banks AUD Hearing Aid Evaluation 06/25/2024 Travel 06/24/2024 Scan [facility] INFO SRVCS Scanned, [facility] 06/07/2024 Scan [facility] SRVCS Scanned, [facility] ECG (SCAN) 06/05/2024 1:00 PM SUPERVISOR FACEPIECE LINE Office Visit [facility] Audiology [address] [place] [address] Kaur Banks AUD Frost, Robert, MD Hearing [...] Adult (Generic) 01/18/2022,,01/16/2020,2018,02/07/2018,01/12/2017,12/31/2015,1 MMR 12/09/2004,11/07/2004 MODERNA COVID-19 (LEARNING ADMINISTRATOR CHASTITY JOSE), MRNA, LNP-S, PF, 50 MCG/ [...] Sex Assigned at Female 03/29/2021 4:02 PM SUPERVISOR FACEPIECE LINE Legal Sex Female 5:01 PM CDT Gender Identity Female 03/29/2021 4:02 PM SUPERVISOR FACEPIECE LINE Sexual Orientation Straight 03/29/2021 4: 02 PM SUPERVISOR FACEPIECE LINE Travel History Travel Start Travel End [place] 08/12/2024 08/20/2024 Last Filed Vital Signs Vital Sign Reading Time Taken Comments Blood Pressure 134/84 06/30/2024 10:21 AM CDT Pulse 62 06/30/2024 10:21 AM CDT Temperature 36.2 C (97.2 F) 06/30/2024 10:21 AM CDT Respiratory Rate 18 04/29/2024 7:59 AM SUPERVISOR FACEPIECE LINE Oxygen Saturation 98% 06/30/2024 10:21 AM CDT Inhaled Oxygen Concentration - - Weight 87.5 kg (193 lb) 06/30/2024 10:21 AM CDT Height 162.6 cm (5' 4 ) 06/30/2024 10:21 AM CDT Body Mass Index 33.13 06/30/2024 10:21 AM CDT Plan of Treatment Upcoming Encounters Date Type Department Care Team (Late st Contact Info) Description 02/03/2025 10:00 AM CDT Office Visit [facility] Audiology [address] [place] [address] JocelynKaur, AUD [address] [place] [address] Health Maintenance Due Date Last [...] or 60+ Years Completed 01/09/2024 PHQ-2 (Physician [place]) Completed 04/29/2024 Meningococcal B Vaccine Aged Out [...] Routine Screening Left Ordered By: LUZ Adams [facility] Interpreted By: Regino Chong MD, 08/26/2024 3:23 PM Narrative 08/26/2024 3:29 PM CDT [facility] [address] [place] [address] EXAMINATION: Digital left screening mammogram with 3-D [...] 1:24 PM Narrative 07/15/2024 1:33 PM CDT [facility] [address] [place] [address] EXAMINATION: MRI LEFT HIP WITHOUT CONTRAST EXAM [...] Procedure Note Uriel Hyman MD - 07/15/2024 [facility] [address] [place] [address] EXAMINATION: MRI LEFT HIP WITHOUT CONTRAST EXAM [...] Uriel Hyman, 07/15/2024 1:24 PM Asha Chao [facility]- MRI Final Result * (ABNORMAL) LIPID PANEL (07/03/2024 8:29 AM CDT) CHOLESTEROL 233(H) 0 - 199 MG/DL 07/03/2024 1:58 PM CDT [facility] TRIGLYCERIDES 148 0 - 149 MG/DL 07/03/2024 1:58 PM CDT [facility] HDL 61 >39 MG/DL 07/03/2024 1:58 PM CDT [facility] LDL (CALCULATED) 142(H) <100 MG/DL 07/04/19 25 1:58 PM CDT [facility] VLDL CALCULATION 30 MG/DL 07/04/19 25 1:58 PM CDT [facility] Comment:REFERENCE RANGE NOT ESTABLISHED CHOL/HDL RATIO 3.8 07/03/2024 1:58 PM CDT [facility] Comment:REFERENCE RANGE NOT ESTABLISHED LDL/HDL 2.0 07/03/2024 1:58 PM CDT [facility] Comment:REFERENCE RANGE NOT ESTABLISHED NON HDL CHOLESTEROL 172 MG/DL 07/03/2024 1:58 PM CDT [facility] Comment:REFERENCE RANGE NOT ESTABLISHED 07/03/2024 8:29 AM CDT Asha Chao [facility] Final Result [facility] [address] [place] [address], * XR LUMB SPINE 3V (06/30/2024 11:20 AM CDT) Anatomical Region Laterality Modality Spine Radiographic Anastasiia ging 06/30/2024 3:09 PM CDT Impressions 06/30/2024 3:10 PM CDT IMPRESSION: No acute findings. Minimal spondylosis. Referred By: Interpreted By: Servando Huffman MD, 06/30/2024 3:09 PM Narrative 06/30/2024 3:10 PM [address]T [address] [address] Examination: Lumbar spine. Exam time: 1110 hours. [...] Procedure Note Servando Huffman MD - 06/30/[address] [address] Examination: Lumbar spine. Exam time: 1110 hours. [...] Huffman MD, 06/30/2024 3:09 PM Asha Chao TRADESHOW WORKER-BC GENERAL IMAGING Final Result * XR HIP LT 2V (06/30/2024 11:20 AM CDT) Anatomical Region Laterality Modality Hip Radiographic Anastasiia ging 06/30/2024 1:15 PM CDT Impressions 06/30/2024 1:26 PM CDT IMPRESSION: No acute findings. Referred By: Interpreted By: Servando Huffman MD, 06/30/2024 1:15 PM Narrative 06/30/2024 1:[place] [address] Examination: Left hip. Exam time: 1111 hours. [...] Procedure Note Servando Huffman MD - 06/30/2024 [place] [address] Examination: Left hip. Exam time: 1111 hours. [...] Huffman MD, 06/30/2024 1:15 PM Asha Jeremie TRADESHOW WORKER-BC GENERAL IMAGING Final Result * ECG GENERIC [...] Masters MD, 10/31/2022 12:12 PM Asha Chao TRADESHOW WORKER-BC DEXA Final Result * COLONOSCOPY GENERIC (09/20/2020) 09/20/2020 Narrative 09/20/2020 Ordered by an unspecified provider. us Documents Scanned SCANNING Final Result from Last 3 Months or Most Recently Relevant to Health Maintenance Insurance MEDICARE [facility] COMMERCIAL PAYER Care Teams Environmental Protection Specialist Relationship Specialty Start Date End Date Moreno Jimenez MD [address] [place] [address] PCP - General FAMILY PRACTICE 10/23/18 Brad Brand MD [address] [place] [address] Consulting Physician INTERVENTIONAL CARDIOLOGY 10/28/18 Jc Browne MD [address] [place], [place] [id number] Consulting Physician RADIATION ONCOLOGY 10/08/23
--- OUTSIDE RECORDS SUMMARY | 2024-08-31 03:22 | XMS_ITS | Encounter Summary ---
Author Organization [facility] Address [address] [place] [address] Care Team Providers Care Executive Communications Manager Name Role Phone Moreno Jimenez MD Primary Care Provider [phone] Brad Brand MD Unavailable Jc Browne MD Unavailable Encounter Details Date Type Department Care Team (Late Contact Info) Description 02/23/2023 [facility] Medical Group Family Medicine-[place] [address] [place] [id number] Moreno Jimenez MD [address] [place] [address] Scan Results from Cancer [...] Sex Assigned at Female 03/29/2021 4:02 PM BAKERY DEMONSTRATOR Legal Sex Female 5:01 PM CDT Gender Identity Female 03/29/2021 4:02 PM BAKERY DEMONSTRATOR Sexual Orientation Straight 03/29/2021 4: 02 PM BAKERY DEMONSTRATOR Travel History Travel Start Travel End [facility] 08/12/2024 08/20/2024 documented as of this encounter Plan of Treatment Upcoming Encounters Date Type Department Care Team (Late st Contact Info) Description 02/03/2025 10:00 AM CDT Office Visit [facility] Audiology [address] [place] [address] Kaur Banks XAVIER [address] [place] [address] documented as of this encounter Visit Diagnoses Not on filedocumented in this encounter Care Teams Executive Communications Manager Relationship Specialty Start Date End Date Moreno Jimenez MD [address] [place] [address] PCP - General FAMILY PRACTICE 10/23/18 Brad Brand MD [address] [place] [address] Consulting Physician INTERVENTIONAL CARDIOLOGY 10/28/18 Jc Browne MD [address] [place] [address] Consulting Physician RADIATION ONCOLOGY 10/08/23 documented as of this encounter
--- OUTSIDE RECORDS SUMMARY | 2024-08-31 03:22 | XMS_ITS | Clinical Summary ---
Author Organization [facility] Address [address] [place] [address] Phone Care Team Providers Care Cloth Calender Name Role Phone Moreno Jimenez MD Primary Care Provider [phone] Mu Barrera DO Unavailable [phone] Allergies No known active allergies Medications [...] Active azelastine (ASTELIN) 0.1 % Solution 1 [place] by Nasal route as needed for Rhinitis. 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); History of non-Hodgkin's lymphoma; Hypogammaglobulinem ia (HCC) 08/04/2024 8:30 AM CDT Lab [facility] [address] [phone] Lab, [facility] History of non-Hodgkin's lymphoma; Hypogammaglobulinem ia (HCC) 08/04/2024 Travel 07/22/2024 8:30 AM CDT Clinical Support [facility] [address] [address] Mu Barrera, DO History of non-Hodgkin's lymphoma (Primary Dx); Hypogammaglobulinem ia (HCC) 07/22/2024 Travel 06/24/2024 9:30 AM CDT Office Visit [facility] [address] [address] Michelle Zavala, YOGHURT MAKER, AUTOMOBILE PARKER Left leg pain (Primary Dx) 06/24/2024 8:30 AM CDT Clinical Support [facility] [address] [address] History of non-Hodgkin's lymphoma (Primary Dx); Hypogammaglobulinem ia (HCC) 06/24/2024 Telephone [facility] [address] [address] Michelle Zavala, YOGHURT MAKER, AUTOMOBILE PARKER 06/24/2024 Travel 06/16/2024 9:00 AM MARKETING RECRUITER Lab [facility] [address] [address] [facility] Follicular lymphoma grade II of lymph nodes [...] Valent 4 Pneumococcal conjugate PCV20 , polysaccharide WNS945 conjugate, adjuvant, PF 12/11/2022 RSV, Recombinant, Protein [...] 8:30 AM CDT Lab [facility] [address] [phone] Lab, Cc [facility] 11/03/2024 8:45 AM CDT Office Visit [facility] [address] [address] Patrick Reed MD [address] [place] [address] Health Maintenance Due Date Last Done [...] AUTO DIFF OH Routine 06/16/2024 9:08 AM MARKETING RECRUITER CMP (COMPREHENSIVE METABOLIC PANEL) Routine 06/16/2024 9:08 AM MARKETING RECRUITER 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 (HCC) Hypogammaglobuline julius (HCC) 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) IMMUNOFIXATION, SERUM OH Routine 06/16/2024 9:08 AM MARKETING RECRUITER 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 (HCC) Hypogammaglobuline julius (HCC) 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) IMMUNOGLOBULIN IGA, IGG & IGM QUANT Routine 06/16/2024 9:08 AM MARKETING RECRUITER Follicular lymphoma grade II of lymph nodes [...] WBC 3.7(L) 4.0 - 10.0 10*3/uL CANCER CAR SUPPLIER [facility] HGB 13.0 11.2 - 15.7 g/dL CANCER CAR SUPPLIER [facility] HCT 41.2 34.1 - 44.9 % CANCER CAR SUPPLIER [facility] PLT 162(L) 163 - 369 10*3/uL CANCER CAR SUPPLIER [facility] MPV 12.7(H) 9.4 - 12.4 fL CANCER CAR SUPPLIER [facility] RBC 4.79 3.93 - 5.22 10*6/uL CANCER CAR SUPPLIER [facility] MCV 86 79 - 95 fL CANCER CAR SUPPLIER [facility] MCH 27.1 25.6 - 32.2 pg CANCER CAR SUPPLIER [facility] MCHC 31.6(L) 32.2 - 36.5 g/dL CANCER CAR SUPPLIER [facility] RDW 13.0 11.6 - 14.4 % CANCER CAR SUPPLIER [facility] Neutrophils % 63.3 36.0 - 66.0 % CANCER CAR SUPPLIER [facility] Lymphocytes % 24.4 19.0 - 40.0 % CANCER CAR SUPPLIER [facility] Monocytes % 6.3 4.1 - 12.1 % CANCER CAR SUPPLIER [facility] Eosinophils % 5.2(H) 0.0 - 3.5 % CANCER CAR SUPPLIER [facility] Basophils % 0.5 0.0 - 1.0 % CANCER CAR SUPPLIER [facility] Absolute Neutrophils 2.3 1.4 - 6.6 10*3/uL CANCER CAR SUPPLIER [facility] Absolute Lymphocytes 0.9 0.8 - 4.0 10*3/uL CANCER CAR SUPPLIER [facility] Absolute Monocytes 0.2 0.2 - 1.2 10*3/uL CANCER CAR SUPPLIER [facility] Absolute Eosinophils 0.2 0.0 - 0.4 10*3/uL CANCER CAR SUPPLIER [facility] Absolute Basophils 0.0 0.0 - 0.1 10*3/uL CANCER CAR SUPPLIER [facility] 08/04/2024 8:26 AM CDT us Mu Barrera DO LAB SEND OUTS Final Result Performing Organization Address [facility] [place] [facility]/ZIP Co de Phone Number [facility] Cancer Care [address] [address], [place] [phone] * (ABNORMAL) IMMUNOGLOBULIN IGA, IGG & IGM QUANT (08/04/2024 8:26 AM CDT) Only the most recent of2 resultswithin the time period is included. IGG 978 635 - 1,741 mg/dL [facility] IGA <10(L) 66 - 433 mg/dL [facility] IGM <20(L) 45 - 281 mg/dL [facility] Blood 08/04/2024 8:26 AM CDT Narrative [facility] - 08/04/2024 2:34 PM CDT Release to patient->Immediate us Mu Barrera DO CHEMISTRY ORDERABLES Final Res ult Performing Organization Address [facility] [place] [facility] Co de Phone Number [facility] Cancer Care [address] [address], [place] [phone] * (ABNORMAL) CMP (COMPREHENSIVE METABOLIC PANEL) (08/04/2024 8:26 AM CDT) Only the most recent of2 resultswithin the time period is included. Glucose 97 70 - 105 mg/dL [facility] Blood Urea Nitrogen 15 7 - 25 mg/dL [facility] Creatinine 0.7 0.6 - 1.2 mg/dL [facility] Sodium 146(H) 136 - 145 mEq/L [facility] Potassium 4.0 3.5 - 5.1 mEq/L [facility] Chloride 109(H) 98 - 107 mEq/L [facility] Bicarbonate 27 21 - 31 mEq/L [facility] Total Bilirubin 0.3 0.3 - 1.0 mg/dL [facility] Alk. Phosphatase 47 34 - 104 U/L [facility] Aspartate Aminotransferase 20 13 - 39 U/L [facility] Alanine Aminotransferase 19 7 - 52 U/L [facility] Total Protein 6.5 6.4 - 8.9 g/dL [facility] Albumin 4.4 3.5 - 5.7 g/dL [facility] Calcium 9.6 8.6 - 10.3 mg/dL [facility] Anion Gap 14.0 7.0 - 15.0 mEq/L [facility] Globulin 2.1 2.0 - 3.5 g/dL [facility] EGFR 95 >60 ml/min/1. 73m2 [facility] Comment: This eGFR is calculated using 2020 CKD-EPI Creatinine equation without race modifier based on the NKF-ASN task force recommendations Equation: sIDW=375*min(SCr/k,1)a*max(SCr/k,1)-1.200*0.9938Age*1.012 (if female), where SCr is serum creatinine, k is 0.7 for females and 0.9 for males, and a is -0.241 for females and -0.302 for males Blood 08/04/2024 8:26 AM CDT Narrative [facility] - 08/04/2024 9:32 AM CDT Release to patient->Immediate IS THE PATIENT REQUIRED TO BE FASTING FOR 8 HOURS?->No us Mu Barrera DO CHEMISTRY ORDERABLES Final Res ult [facility] Special[facility] [place] [address], * IMMUNOFIXATION, SERUM [place] (06/16/2024 9:08 AM MARKETING RECRUITER) IMMUNOFIXATION RESULT, SERUM COMMENT [facility] Comment:NO MONOCLONALITY DET ECTED. 06/16/2024 9:08 AM MARKETING RECRUITER Narrative [facility] - 06/20/2024 3:08 PM MARKETING RECRUITER TESTING PERFORMED AT: [] [facility], [address] [place] [address], [place], [address], PHONE: [phone], SERVICE CENTER TECHNICIAN: REJI CARPENTER, PHD Release to patient->Immediate us Mu Barrera DO LAB SEND OUTS Final Result CANCER CAR SUPPLIER [facility] [address] [place] [address], * COLOGUARD (08/23/2020) us Michoacano Aponte III, MD BODY FLUIDS & STOOLS ORDERA BLES Final Result * STEPHEN SCREENING CHAR W IMPL DIGITAL W CAD (06/04/2020) Anatomical Region Laterality Modality breast Bilateral Mammography us Not On File Provider IMG MAMMO ORDERABLES Final Result from Last 3 Months or Most Recently Relevant to Health Maintenance Insurance MEDICARE [facility] Care Teams Cloth Calender Relationship Specialty Start Date End Date Moreno Jimenez MD [address] [place] [address] PCP - General Family Medicine 12/13/18 Mu Barrera DO [address] [place] [phone] Consulting Physician Oncology 12/05/23
--- OUTSIDE RECORDS SUMMARY | 2024-08-31 03:23 | XMS_ITS ---
Author Organization [facility] Address [address] [place] [address] Phone Care Team Providers Care Mud Trucker Name Role Phone Moreno Jimenez MD Primary Care Provider [phone] Mu Barrera DO Unavailable [phone] Active Problems Problem Noted Date Diagnosed [...]
--- OUTSIDE RECORDS SUMMARY | 2024-08-31 03:23 | XMS_ITS | Encounter Summary ---
Author Organization [facility] Address [address] [place] [address] Care Team Providers Care Recoating Machine Operator Name Role Phone Moreno Jimenez MD Primary Care Provider [phone] Brad Brand MD Unavailable [phone] Jc Browne MD Unavailable Encounter Details Date Type Department Care Team (Latest Contact Info) Description 09/21/2021 Tinteo Message Enc [facility] Medical Group Multispecialty Care [facility] [address], [facility] [address] [place] [address] [facility] Please call to schedule your [...] Assigned at Female 03/29/2021 4:02 PM PRODUCTION CLERK Legal Sex Female 5:01 PM CDT Gender Identity Female 03/29/2021 4:02 PM PRODUCTION CLERK Sexual Orientation Straight 03/29/2021 4: 02 PM PRODUCTION CLERK Travel History Travel Start Travel End [place] 08/12/2024 08/20/2024 documented as of this encounter Plan of Treatment Upcoming Encounters Date Type Department Care Team (Late st Contact Info) Description 02/03/2025 10:00 AM CDT Office Visit [facility] Audiology [address] [place] [address] Kaur BanksXAVIER [address] [place] [address] documented as of this encounter Visit Diagnoses Not on filedocumented in this encounter Care Teams Recoating Machine Operator Relationship Specialty Start Date End Date Moreno Jimenez MD [address] [place] [address] PCP - General FAMILY PRACTICE 10/23/18 Brad Brand MD [address] [place] [address] Consulting Physician INTERVENTIONAL CARDIOLOGY 10/28/18 Jc Browne MD [address] [place] [address] Consulting Physician RADIATION ONCOLOGY 10/08/23 documented as of this encounter
--- OUTSIDE RECORDS SUMMARY | 2024-08-31 03:23 | XMS_ITS | Encounter Summary ---
Author Organization [facility] Address [facility] [place] [address] Care Team Providers Care Health Promotion Manager Name Role Phone Moreno Jimenez MD Primary Care Provider [phone] Brad Brand MD Unavailable [phone] Jc Browne MD Unavailable Encounter Details Date Type Department Care Team (Late Contact Info) Description 01/25/2023 BitDefender Message Enc [facility] Medical Group [facility] [address] [place] [address] Edouard Bryan [facility] Provider 01/29 Appointment Social History Tobacco [...] Sex Assigned at Female 03/29/2021 4:02 PM CAN LINE OPERATOR Legal Sex Female 5:01 PM CDT Gender Identity Female 03/29/2021 4:02 PM CAN LINE OPERATOR Sexual Orientation Straight 03/29/2021 4: 02 PM CAN LINE OPERATOR Travel History Travel Start Travel End [facility] 08/12/2024 08/20/2024 documented as of this encounter Plan of Treatment Upcoming Encounters Date Type Department Care Team (Late Contact Info) Description 02/03/2025 10:00 AM CDT Office Visit [facility] Audiology [address] [place] [address] Kaur Banks, XAVIER [address] [place] [address] documented as of this encounter Visit Diagnoses Not on filedocumented in this encounter Care Teams Health Promotion Manager Relationship Specialty Start Date End Date Moreno Jimenez MD [address] [place] [address] PCP - General FAMILY PRACTICE 10/23/18 Brad Brand MD [address] [place] [address] Consulting Physician INTERVENTIONAL CARDIOLOGY 10/28/18 Jc Browne MD [address] [place], [place] [address] Consulting Physician RADIATION ONCOLOGY 10/08/23 documented as of this encounter
--- OUTSIDE RECORDS SUMMARY | 2024-08-31 03:23 | XMS_ITS | Clinical Summary ---
Author Organization [facility] [address] [place] Address [address] [place] [phone] Care Team Providers Care Spa Concierge Name Role Phone Moreno Jimenez MD Primary Care Provider [phone] Jc Browne MD Unavailable [phone] Mu Barrera DO Unavailable [phone] Allergies No known active allergies Medications mupirocin [...] 1 capsule (12.5 mg total) by mouth sales project coordinator before breakfast 3 Active L. acidophilus/Bifi d. [...] Description 08/28/2024 1:30 PM CDT Office Visit [facility] [address] [place] [phone] Sandra Aguero PA Primary osteoarthritis of left hip (Primary Dx); Muscle strain of left gluteal region, initial encounter 08/01/2024 Telephone [facility] [address] [facility] [address] [place] [phone] Lakeisha No MA from Last 3 [...] on file Legal Sex Female 2:16 PM JET HANDLER Gender Identity Not on file Sexual Orientation [...] 01/23/2024, , 01/13/2021, Additional history exists Insurance [id number] MEDICARE [facility] MEDICARE SUPPLEMENT CLAIMS OFFICE MEDICARE Care Teams Spa Concierge Relationship Specialty Start Date End Date Moreno Jimenez MD [address] [place] [address] PCP - General Family Practice 11/05/23 Jc Browne MD [address] [place] [address] Radiation Oncology 11/06/23 Mu Barrera, [address] [place] [phone] Referring Physician Medical Oncology 11/06/23
--- OUTSIDE RECORDS SUMMARY | 2024-08-31 03:23 | XMS_ITS | Referral Summary ---
Author Organization [facility] [address] Address [address] [place] [phone] Care Team Providers Care Dairy Cattle Farm Manager Name Role Phone Moreno Jimenez MD Primary Care Provider Jc Browne MD Unavailable [phone] Mu Barrera DO Unavailable [phone] Encounters Date Type Department Care Team Description 08/28/2024 1:30 PM CDT Office Visit [facility] Orth[facility] Sports Medicine [address] [place] [phone] Sandra Aguero PA Primary osteoarthritis of left hip (Primary Dx); Muscle strain of left gluteal region, initial encounter 08/01/2024 Telephone [facility] [address] [facility] [address], [place] [address] Lakeisha No MA from Last [...] 1 capsule (12.5 mg total) by mouth gauntlet pairer before breakfast 3 Active L. acidophilus/Bifi d. [...] on file Legal Sex Female 2:16 PM THEOLOGY TEACHER Gender Identity Not on file Sexual Orientation [...] Plan of Treatment Not on file Insurance [facility] MEDICARE [employer] MEDICARE SUPPLEMENT [employer] [place] [address] Care Teams Dairy Cattle Farm Manager Relationship Specialty Start Date End Date Moreno Jimenez MD [address] [place] [address] PCP - General Family Practice 11/05/23 Jc Browne MD [address] [place] [address] Radiation Oncology 11/06/23 Mu Barrera, [address] [place] [phone] Referring Physician Medical Oncology 11/06/23
== END 2024-08-31 03:30 | disposition home or self-care (01) ==
LOC: ANHED 03:21
PROVIDERS: Emergency Provider Emergency Medicine
DX: S20.462A Insect bite (nonvenomous) of left back wall of thorax, initial encounter (principal); K58.9 Irritable bowel syndrome, unspecified; Z85.3 Personal history of malignant neoplasm of breast; Z85.71 Personal history of Hodgkin lymphoma; W57.XXXA Bitten or stung by nonvenomous insect and other nonvenomous arthropods, initial encounter
CPT/HCPCS: 99282; 99283; A9270